=== PATIENT | female | born 1960 | race Caucasian/White ===

== ENCOUNTER → 2017-04-11 | Outpatient (CLI) | payer BC ==
[~2017-04-11] MED LIST: ACHD5005 PO; AMOX500C2 PO; AMOXICILLIN; CEPH250S PO; HYDR-757 PO; ONDA8TAB9 PO
--- NOTE | 2017-04-11 12:13 | Diagnostic Imaging Report ---
Bilateral screening mammogram The current study was also evaluated with a Computer Aided Detection (CAD) system. Indication: Screening. No current complaints stated on the questionnaire. COMPARISON: 08/24/16. FINDINGS: The breasts are composed of heterogeneously dense parenchyma which may decrease mammographic sensitivity. No mass, architectural distortion or suspicious cluster of calcification seen. Allowing for technique and positional differences, no suspicious change is seen. IMPRESSION: No significant change. ACR BI-RADS Category 2: Benign findings. Result letter will be mailed to the patient. Note: At least 10% of breast cancer is not imaged by mammography. Dictated by: Dictated on workstation # [id number]
== END ==
LOC: RAD 08:23
PROVIDERS: ATTEND Nurse Practitioner Family
DX: Z12.31 Encounter for screening mammogram for malignant neoplasm of breast (principal)
CPT/HCPCS: 77067

== ENCOUNTER → 2017-10-19 | Outpatient (CLI) | payer BC ==
--- NOTE | 2017-10-19 13:09 | Diagnostic Imaging Report ---
PROCEDURE: US Thyroid. TECHNIQUE: Multiple real-time grayscale images were obtained of the thyroid in various projections. INDICATION: Thyroid nodule. There are no previous thyroid ultrasound examinations available for comparison. FINDINGS: The CT neck exam performed on 08/20/2015 noted a large mass involving the right lobe of thyroid. The left lobe of the thyroid was also prominent and contained multiple nodules as well. Reportedly, in the interval since the prior exam, the right lobe of the thyroid has been surgically removed. The left lobe remains enlarged measuring 7.2 x 3.9 x 3.0 cm (normal gland size 4-5 x 2 x 2 cm or less). There do appear to be multiple nodules still present within the left lobe. This appearance is most likely related to multinodular goiter. If further imaging is desired, then a nuclear medicine thyroid scan would be recommended. IMPRESSION: In the interval since the previous CT exam, the right lobe of the thyroid has been surgically resected. The left lobe of the thyroid remains enlarged and contains multiple nodules. Recommendations as above. Dictated by: Dictated on workstation # [id number]
== END ==
LOC: RAD 09:07
PROVIDERS: ATTEND Otolaryngology Otolaryngology/Facial Plastic Surgery
DX: E04.2 Nontoxic multinodular goiter (principal); E89.0 Postprocedural hypothyroidism
CPT/HCPCS: 36415; 76536; 84443

== ENCOUNTER → 2018-08-26 | Outpatient (CLI) | payer BC ==
[2018-08-26 07:55] LABS: ALANINE AMINOTRANSFERASE 19 U/L (0-55); ALKALINE PHOSPHATASE 80 U/L (40-136); BILIRUBIN,TOTAL 0.9 MG/DL (0.1-1.0); BUN/CREATININE RATIO 18; CARBON DIOXIDE 29 MMOL/L (21-32); CHLORIDE 105 MMOL/L (98-107); CHOLESTEROL 228 MG/DL (< 200); CREATININE SERUM 0.73 MG/DL (0.60-1.30); GFR ESTIMATED > 60; GLUCOSE 91 MG/DL (70-105); HDL CHOLESTEROL 63 MG/DL (40-60); POTASSIUM 4.5 MMOL/L (3.6-5.0); SODIUM 140 MMOL/L (135-145); TOTAL PROTEIN 6.6 GM/DL (6.4-8.2); TRIGLYCERIDES 155 MG/DL (<150); VLDL CHOLESTEROL 31 MG/DL (5-40)
--- NOTE | 2018-08-27 07:32 | Diagnostic Imaging Report ---
INDICATION: Screening. Digital mammogram bilateral screening with 3D tomosynthesis. This study was compared to prior exams of 04/11/17, 08/14/2016, 03/28/2016 and 07/24/2012. At this time there are no current complaints. The current study was also evaluated with a Computer Aided Detection (CAD) system. FINDINGS: The fibroglandular tissue in both breasts is heterogeneously dense. This does limit the sensitivity of this exam. Overall, there does not appear to have been any significant change when compared to the prior study. No primary or secondary sign of malignancy is noted. IMPRESSION: There is no radiographic evidence for malignancy. ACR BI-RADS Category 1: Negative. Result letter will be mailed to the patient. Note: At least 10% of breast cancer is not imaged by mammography. Dictated by: Dictated on workstation # [id number]
== END ==
LOC: RAD 07:16
PROVIDERS: ATTEND Nurse Practitioner Primary Care
DX: Z12.31 Encounter for screening mammogram for malignant neoplasm of breast (principal); Z13.220 Encounter for screening for lipoid disorders; Z13.1 Encounter for screening for diabetes mellitus; N89.8 Other specified noninflammatory disorders of vagina
CPT/HCPCS: 36415; 77067; 80053; 80061

== ENCOUNTER → 2019-06-11 | Outpatient (CLI) | payer BC ==
[2019-06-11 12:24] LABS: FREE T4 (FREE THYROXINE) 0.9 NG/DL (0.70-1.48)
--- NOTE | 2019-06-11 17:20 | Diagnostic Imaging Report ---
PROCEDURE: US Thyroid. TECHNIQUE: Multiple real-time grayscale images were obtained of the thyroid in various projections. INDICATION: Goiter. Followup. COMPARISON: 06/05/2018 FINDINGS: Right thyroid lobe is surgically absent. Sonographic evaluation of the right thyroid bed demonstrates no convincing evidence of significant residual thyroid tissue. No suspicious nodules or masses are identified. The left lobe is enlarged and measures 8.0 x 3.7 x 3.1 cm. Left lobe is diffusely heterogeneous. Multiple curvilinear areas of hypoechogenicity are noted throughout the left lobe suggestive of potential tissue planes between separate thyroid nodules. Alternatively, findings could be on the basis of overall heterogeneity. Single dominant thyroid nodule measurement is not provided. Overall, the left lobe is stable in size when compared to prior exam. IMPRESSION: 1. Stable enlarged appearance of the left thyroid lobe with overall diffuse heterogeneity and possible multiple nodules. Dictated by: Dictated on workstation # [id number]
== END ==
LOC: RAD 10:34
PROVIDERS: ATTEND Otolaryngology Otolaryngology/Facial Plastic Surgery
DX: E04.9 Nontoxic goiter, unspecified (principal)
CPT/HCPCS: 36415; 76536; 84439; 84443

== ENCOUNTER → 2020-07-09 | Outpatient (CLI) | payer BC ==
--- NOTE | 2020-07-09 09:25 | Diagnostic Imaging Report ---
PROCEDURE: US Thyroid. TECHNIQUE: Multiple real-time grayscale images were obtained of the thyroid in various projections. INDICATION: Goiter, thyroid nodule. COMPARISONS: 06/11/2019 and 10/19/2017 FINDINGS: The right lobe of the thyroid gland is not visualized, is surgically absent. No abnormal soft tissue mass lesion within the right thyroid bed. The left lobe of the thyroid gland measures 7.1 x 3.7 x 3.4 cm. It is enlarged and diffusely heterogeneous. Solid iso to hyperechoic dominant nodule is present within the left thyroid lobe measuring 3.8 x 3.1 x 3.2 cm. This has not significantly changed from the prior examinations. Additional smaller nodules appear unchanged. No definite new nodule. The isthmus is not well seen. IMPRESSION: Stable dominant 3.8 cm solid nodule within the left thyroid lobe. This is not significantly changed since the prior imaging including dating back to 2018. No new thyroid nodules. The right lobe of the thyroid gland is not visualized, is surgically absent. Follow-up ultrasound in one year is recommended. Dictated by: Dictated on workstation # [id number]
== END ==
LOC: RAD 08:30
PROVIDERS: ATTEND Otolaryngology Otolaryngology/Facial Plastic Surgery
DX: E04.1 Nontoxic single thyroid nodule (principal); Z90.89 Acquired absence of other organs
CPT/HCPCS: 36415; 76536; 84436; 84443

== ENCOUNTER → 2021-07-22 | Outpatient (CLI) | payer BC ==
--- NOTE | 2021-07-22 17:46 | Diagnostic Imaging Report ---
PROCEDURE: US Thyroid. TECHNIQUE: Multiple real-time grayscale images were obtained of the thyroid in various projections. INDICATION: Thyroid nodule. FINDINGS: The previous thyroid ultrasound exam performed on 07/09/2020 noted a stable dominant 3.8 cm solid nodule in the left lobe of the thyroid. On this exam, there is again a 3.1 x 3.2 x 3.3 cm area of slightly altered echogenicity within the left lobe of the thyroid. I suspect that this does correspond to the finding on the previous exam and does not appear to have changed adversely. The inferior pole of the left lobe of the thyroid extends below the clavicle and was difficult to evaluate. There is no definite abnormality noted. The left lobe of the thyroid is enlarged measuring 8.2 x 4.2 x 3.2 cm (normal gland size 4-5 x 2 x 2 cm or less). As noted on the prior exam, the right lobe of the thyroid is surgically absent. IMPRESSION: 1. The large solid nodule within the left lobe of the thyroid seen previously is again evident and does not appear to have changed adversely. Most likely, this is a benign process given its stability since 2018. 2. The left lobe of the thyroid was difficult to visualize as the inferior pole extended below the clavicle. If further evaluation is desired, then a nuclear medicine thyroid scan should be considered. 3. The right lobe of the thyroid is surgically absent. Dictated by: Dictated on workstation # [id number]
== END ==
LOC: RAD 08:00
PROVIDERS: ATTEND Otolaryngology Otolaryngology/Facial Plastic Surgery
DX: E04.1 Nontoxic single thyroid nodule (principal); Z90.89 Acquired absence of other organs
CPT/HCPCS: 76536

== ENCOUNTER → 2022-06-16 | Outpatient (CLI) | payer BC ==
--- NOTE | 2022-06-16 09:22 | Diagnostic Imaging Report ---
PROCEDURE: US Thyroid. TECHNIQUE: Multiple real-time grayscale images were obtained of the thyroid in various projections. INDICATION: Follow-up thyroid nodule. History of right hemithyroidectomy. COMPARISON: 07/22/2021. FINDINGS: The right lobe of the thyroid is surgically absent. The left lobe measures 8.0 cm in length, 3.8 cm AP, and 3.5 cm transverse. There is prominent vascularity in the left lobe of the thyroid. The isthmus measures 0.7 cm. The prominent solid, echogenic and heterogeneous nodule within the left lobe of the thyroid measures 5.3 x 3.2 x 3.0 cm on today's exam, previously measuring 3.1 x 3.2 x 3.3 cm. IMPRESSION: 1. Interval increase in the solid nodule within the left lobe of the thyroid now measuring 5.3 cm. Given the interval increase in size and imaging characteristics, thyroid FNA is recommended to further evaluate. Dictated by: Dictated on workstation # [id number]
== END ==
LOC: RAD 07:33
PROVIDERS: ATTEND Otolaryngology Otolaryngology/Facial Plastic Surgery
DX: E04.1 Nontoxic single thyroid nodule (principal); Z90.89 Acquired absence of other organs
CPT/HCPCS: 76536

== ENCOUNTER → 2022-09-13 | Outpatient (CLI) | payer BC ==
[~2022-09-13] VITALS: Ht 172.7 cm; Wt 50.5 kg
[~2022-09-13] MED LIST changes: +LIDOCAINE 1% INJ 30 ML (XYLOCAINE) VIAL INJ ONE
--- NOTE | 2022-09-13 15:39 | Diagnostic Imaging Report ---
INDICATION: Left lobe thyroid nodule. Patient presents for ultrasound-guided fine needle aspiration and Rotex biopsy. PROCEDURE: Patient was brought to the procedure room and placed on table in the supine position. Ultrasound imaging of the neck was performed to evaluate appropriate entry site. The neck was then prepped and draped in the usual sterile fashion. A small amount 1% lidocaine was utilized for local anesthesia. A total of 4 passes were made into the dominant left lobe thyroid nodule utilizing 25-gauge needles and fine-needle aspiration technique. A single pass was made with a Rotex needle and a Rotex biopsy was performed. Hemostasis was obtained. The patient tolerated the procedure well and left Department in stable condition. IMPRESSION: Successful ultrasound-guided fine needle aspiration and Rotex biopsy of left lobe thyroid mass. Pathology results are currently pending. Dictated by: Dictated on workstation # [id number]
== END ==
LOC: RAD 13:15
PROVIDERS: ATTEND Otolaryngology Otolaryngology/Facial Plastic Surgery
DX: E04.1 Nontoxic single thyroid nodule (principal)
CPT/HCPCS: 10005

== ENCOUNTER → 2022-11-27 | Outpatient (CLI) | payer BC, OTHER ==
[~2022-11-27] MED LIST changes: -LIDOCAINE 1% INJ 30 ML (XYLOCAINE) VIAL INJ ONE
[2022-11-27 08:10] LABS: BASOPHILS # (AUTO) 0.1 10^3/uL (0.0-0.1); BASOPHILS % (AUTO) 1 % (0-10); EOSINOPHILS # (AUTO) 0.1 10^3/uL (0.0-0.3); EOSINOPHILS % (AUTO) 2 % (0-10); HEMATOCRIT 43 % (35-52); HEMOGLOBIN 14.4 g/dL (11.5-16.0); LYMPHOCYTES # (AUTO) 1.8 10^3/uL (1.0-4.0); LYMPHOCYTES % (AUTO) 29 % (12-44); MEAN CORPUSCULAR HEMOGLOBIN 29 pg (25-34); MEAN CORPUSCULAR HGB CONC 33 g/dL (32-36); MEAN CORPUSCULAR VOLUME 88 fL (80-99); MEAN PLATELET VOLUME 8.5 fL (9.0-12.2); MONOCYTES # (AUTO) 0.6 10^3/uL (0.0-1.0); MONOCYTES % (AUTO) 11 % (0-12); NEUTROPHILS # (AUTO) 3.5 10^3/uL (1.8-7.8); NEUTROPHILS % (AUTO) 58 % (42-75); PLATELET COUNT 344 10^3/uL (130-400); WHITE BLOOD COUNT 6.1 10^3/uL (4.3-11.0)
[2022-11-27 08:29] LABS: CALCIUM 8.9 MG/DL (8.5-10.1); CREATININE SERUM 0.71 MG/DL (0.60-1.30); POTASSIUM 4.1 MMOL/L (3.6-5.0)
--- NOTE | 2022-11-27 09:30 | Diagnostic Imaging Report ---
PROCEDURE: US Gallbladder. INDICATION: Right upper quadrant pain, nausea, vomiting, diarrhea TECHNIQUE: Multiple grayscale sonographic images were obtained of the right upper quadrant of the abdomen. CORRELATION STUDY: None FINDINGS: LIVER: There is uniform echotexture within the visualized portions of the liver. The main portal vein is patent and with normal direction of flow. Liver length 13.9 cm. GALLBLADDER: The gallbladder demonstrates no definitive shadowing gallstones, abnormal gallbladder wall thickening or pericholecystic fluid. COMMON BILE DUCT: Nondilated at 0.3 cm. AORTA/IVC: Not well visualized. PANCREAS: Visualized portions appearing unremarkable. RIGHT KIDNEY: 10.5 x 4.2 x 4.2 cm. No hydronephrosis. OTHER: None. IMPRESSION: 1. Negative appearing right upper quadrant abdominal ultrasound. Dictated by: Dictated on workstation # [id number]
== END ==
LOC: RAD 07:49
PROVIDERS: ATTEND Registered Nurse
DX: R10.11 Right upper quadrant pain (principal); R11.2 Nausea with vomiting, unspecified; R19.7 Diarrhea, unspecified
CPT/HCPCS: 36415; 76705; 80048; 82150; 83690; 85025

== ENCOUNTER 2022-11-30 09:34 | Inpatient (IN) | payer BC ==
[~2022-11-30] VITALS: Ht 180.3 cm; Wt 46.7 kg
--- NOTE | 2022-11-30 09:38 | ED GI ---
General Stated Complaint: VOMITING | ABD PAIN | GALL BLADDER History of Present Illness Date Seen by Provider: Nov 30, 2022 Time Seen by Provider: 09:38 Initial Comments 62-year-old female presents with crampy diffuse abdominal pain, nausea and vomiting. She reports that started couple weeks ago she had it for about 3 days, got better and then got worse again. She was seen by her primary care provider and had an ultrasound. This was done on 11/27/2022. I did review her ultrasound results and it was negative for any acute abnormality. She reports that the pain is kind of diffuse however it did start in the right upper quadrant. No reports of fever or chills. Allergies and Home Medications Allergies Coded Allergies: clindamycin (Unverified Allergy, Intermediate, 08/25/15) "CHEST PAIN AND PRESSURE" Patient Home Medication List Home Medication List Reviewed: Yes Cephalexin (Cephalexin) 250 Mg/5 Ml Susp.recon, 250 MG PO QID, (Reported) Entered as Reported by: MARIZA HAMPTON on 08/23/15 1536 Hydrocodone Bit/Acetaminophen (Lortab 5 Mg Tablet) 1 Each Tablet, 1 EACH PO Q4H PRN Prescribed by: ADAMA RUIZ on 01/07/13 1342 Review of Systems Review of Systems Constitutional: No chills, No fever EENTM: No Symptoms Reported Respiratory: No Symptoms Reported Cardiovascular: No Symptoms Reported Gastrointestinal: Abdominal Pain; Denies Constipated, Denies Diarrhea; Nausea, Vomiting Genitourinary: No Symptoms Reported Musculoskeletal: no symptoms reported Skin: no symptoms reported Psychiatric/Neurological: No Symptoms Reported Endocrine: No Symptoms Reported Past Dwnijrc-Ruqdpw-Mbbbrl Hx Seasonal Allergies Seasonal Allergies: Yes Past Medical History [employer] History: Menopausal Gastroesophageal Reflux Scoliosis Family Medical History No Pertinent Family Hx Physical Exam Vital Signs Vital Signs - First Documented 11/30/22 09:34 Temp 36.4 Pulse 92 Resp 18 B/P (MAP) 125/100 (108) Pulse Ox 99 O2 Delivery Room Air Capillary Refill : Height/Weight/BMI Height: 5'11.00" Weight: 135lbs. oz. [id number]; 16.93 BMI Method:Stated General Appearance: mild distress Neck: full range of motion, supple Respiratory: lungs clear, normal breath sounds Cardiovascular: normal peripheral pulses, regular rate, rhythm Gastrointestinal: soft, tenderness (mild diffuse ) Extremities: non-tender, normal inspection Neurologic/Psychiatric: alert, normal mood/affect, oriented x 3 Skin: normal color, warm/dry Focused Exam Lactate Level 11/30/22 11:20: Lactic Acid Level 2.69*H Lactic Acid Level Laboratory Tests Test 11/30/22 11:20 Lactic Acid Level 2.69 MMOL/L (0.50-2.00) *H Progress/Results/Core Measures Results/Orders Lab Results Laboratory Tests Test 11/30/22 09:45 11/30/22 11:17 11/30/22 11:20 Range/Units White Blood Count 23.7 H 4.3-11.0 10^3/uL Red Blood Count 5.58 H 3.80-5.11 10^6/uL Hemoglobin 16.4 H 11.5-16.0 g/dL Hematocrit 48 35-52 % Mean Corpuscular Volume 87 80-99 fL Mean Corpuscular Hemoglobin 29 25-34 pg Mean Corpuscular Hemoglobin Concent 34 32-36 g/dL Red Cell Distribution Width 12.5 10.0-14.5 % Platelet Count 444 H 130-400 10^3/uL Mean Platelet Volume 8.6 L 9.0-12.2 fL Immature Granulocyte % (Auto) 1 % Neutrophils (%) (Auto) 84 H 42-75 % Lymphocytes (%) (Auto) 10 L 12-44 % Monocytes (%) (Auto) 4 0-12 % Eosinophils (%) (Auto) 0 0-10 % Basophils (%) (Auto) 1 0-10 % Neutrophils # (Auto) 19.9 H 1.8-7.8 10^3/uL Lymphocytes # (Auto) 2.3 1.0-4.0 10^3/uL Monocytes # (Auto) 1.0 0.0-1.0 10^3/uL Eosinophils # (Auto) 0.1 0.0-0.3 10^3/uL Basophils # (Auto) 0.1 0.0-0.1 10^3/uL Immature Granulocyte # (Auto) 0.2 H 0.0-0.1 10^3/uL Neutrophils % (Manual) 82 % Lymphocytes % (Manual) 11 % Monocytes % (Manual) 7 % Platelet Estimate INCREASED Blood Morphology Comment NORMAL Sodium Level 138 135-145 MMOL/L Potassium Level 4.1 3.6-5.0 MMOL/L Chloride Level 99 98-107 MMOL/L Carbon Dioxide Level 24 21-32 MMOL/L Anion Gap 15 H 5-14 MMOL/L Blood Urea Nitrogen 14 7-18 MG/DL Creatinine 0.85 0.60-1.30 MG/DL Estimat Glomerular Filtration Rate 78 BUN/Creatinine Ratio 16 Glucose Level 174 H 70-105 MG/DL Calcium Level 9.4 8.5-10.1 MG/DL Corrected Calcium 9.7 8.5-10.1 MG/DL Total Bilirubin 1.0 0.1-1.0 MG/DL Aspartate Amino Transf (AST/SGOT) 17 5-34 U/L Alanine Aminotransferase (ALT/SGPT) 9 0-55 U/L Alkaline Phosphatase 89 40-136 U/L C-Reactive Protein High Sensitivity 1.08 H 0.00-0.50 MG/DL Total Protein 7.3 6.4-8.2 GM/DL Albumin 3.6 3.2-4.5 GM/DL Lipase 12 8-78 U/L Urine Color YELLOW Urine Clarity CLEAR Urine pH 6.0 5-9 Urine Specific [place] 1.015 L 1.016-1.022 Urine Protein NEGATIVE NEGATIVE Urine Glucose (UA) NEGATIVE NEGATIVE Urine Ketones NEGATIVE NEGATIVE Urine Nitrite NEGATIVE NEGATIVE Urine Bilirubin NEGATIVE NEGATIVE Urine Urobilinogen 0.2 < = 1.0 MG/DL Urine Leukocyte Esterase NEGATIVE NEGATIVE Urine RBC (Auto) 1+ H NEGATIVE Urine RBC 5-10 H /HPF Urine WBC NONE /HPF Urine Squamous Epithelial Cells 0-2 /HPF Urine Crystals N /LPF Urine Bacteria NEGATIVE /HPF Urine Casts PRESENT /LPF Urine Hyaline Casts 5-10 H /LPF Urine Mucus SMALL H /LPF Urine Culture Indicated NO Lactic Acid Level 2.69 *H 0.50-2.00 MMOL/L My Orders Orders - HOPKINS,LITZY L DO Cbc With Automated Diff (11/30/22 09:41) Comprehensive Metabolic Panel (11/30/22 09:41) Hs C Reactive Protein (11/30/22 09:41) Lipase (11/30/22 09:41) Ua Culture If Indicated (11/30/22 09:41) Ondansetron Injection (Zofran Injectio (11/30/22 09:45) Ns Iv 1000 Ml (Sodium Chloride 0.9%) (11/30/22 09:41) Famotidine Injection (Pepcid Injection) (11/30/22 09:41) Hyoscyamine Sl Tablet (Levsin Sl Tablet) (11/30/22 09:45) Manual Differential (11/30/22 09:45) Ct Abdomen/Pelvis W (11/30/22 10:25) Iohexol Injection (Omnipaque 350 Mg/Ml 1 (11/30/22 10:30) Ns (Ivpb) (Sodium Chloride 0.9% Ivpb Bag (11/30/22 10:30) Lactic Acid Analyzer (11/30/22 11:16) Piperacillin Sodium/Tazobactam (Zosyn Vi (11/30/22 11:30) Ed Iv/Invasive Line Start (11/30/22 11:20) Ns Iv 1000 Ml (Sodium Chloride 0.9%) (11/30/22 11:30) Ng Tube Insert & Assessment (11/30/22 12:08) Ng Tube To Low Wall Suction (11/30/22 12:08) Methylprednisolone Sod Succ (Solu-Medrol (11/30/22 12:08) Ed Admission (Communication) (11/30/22 12:15) Medications Given in ED Current Medications Medications Dose Ordered Sig/Андрей Route Start Time Stop Time Status Last Admin Dose Admin Hyoscyamine Sulfate 0.125 mg ONCE ONCE SL 11/30/22 09:45 11/30/22 09:46 DC 11/30/22 09:51 0.125 MG Iohexol 100 ml ONCE ONCE IV 11/30/22 10:30 11/30/22 10:31 DC 11/30/22 10:53 54 ML Ondansetron HCl 4 mg ONCE ONCE IVP 11/30/22 09:45 11/30/22 09:46 DC 11/30/22 09:52 4 MG Piperacillin Sod/ Tazobactam Sod 4.5 gm/Sodium Chloride 100 ml @ 200 mls/hr ONCE ONCE IV 11/30/22 11:30 11/30/22 11:59 DC 11/30/22 11:33 200 MLS/HR Sodium Chloride 100 ml ONCE ONCE IV 11/30/22 10:30 11/30/22 10:31 DC 11/30/22 10:53 80 ML Vital Signs/I&O 11/30/22 09:34 Temp 36.4 Pulse 92 Resp 18 B/P (MAP) 125/100 (108) Pulse Ox 99 O2 Delivery Room Air Progress Progress Note : Progress Note Patient's labs were reviewed and compared to prior labs done by his primary care provider on outpatient basis. She did have a significant increase in her white count. He also had elevated creatinine. Patient's ultrasound performed by her primary care provider was reviewed showed no significant findings. Based on patient's elevated white count CRP is CT was obtained. CT showed concerns for a Crohn's type flare with possible obstruction and possible ischemia.. I reviewed CT and discussed with Dr. Antony. At this time we will admit patient keep her n.p.o., we will repeat her lactic which was initially elevated to trend. She was given Zosyn antibiotics empirically in the ER. Also discussed patient with Dr. rBumfield who will consult. Patient was stable and transferred to the floor I did have a discussion with patient regarding possible need for surgery. We did attempt to place an NG tube. Once NG tube placed patient reports that she just cannot tolerate it made her feel like she cannot breathe. She took it out and declined further NG tube placement.. Diagnostic Imaging Diagonstic Imaging: CT Plain Films/CT/US/NM/MRI: abdomen Comments Date of Exam:11/30/22 CT ABDOMEN/PELVIS W EXAMINATION: CT abdomen and pelvis with intravenous contrast. TECHNIQUE: Multiple contiguous axial images were obtained through the abdomen and pelvis after the uneventful administration of intravenous contrast. All CT scans use one or more of the following dose optimizing techniques: automated exposure control, MA and/or KvP adjustment based on patient size and exam type or iterative reconstruction. HISTORY: Abdominal pain. COMPARISON: None available. FINDINGS: Limited views of the lower thorax are unremarkable. The liver is normal without focal lesion. There is no biliary ductal dilation. Gallbladder is normal. Pancreas is normal. Spleen is normal. Adrenal glands are normal. The kidneys are normal. There is no hydronephrosis. Urinary bladder is normal. There is a long segment of wall thickening of the terminal ileum with marked luminal narrowing. There is severe upstream dilation of the small bowel. No abscess or perforation. There are enlarged adjacent lymph nodes next to the inflamed terminal ileum measuring up to 1.1 cm. Small amount of free fluid is present. There is extensive mesenteric edema and a small amount of fluid in the mesentery. No free air. No abdominal or pelvic lymphadenopathy. Aorta is normal in caliber without aneurysm. There are no suspicious osseous lesions. IMPRESSION: 1. Long segment severe active inflammation of the terminal ileum concerning for an inflammatory bowel disease. 2. Severe luminal narrowing of the inflamed bowel with marked dilation of the upstream bowel in keeping with high-grade obstruction related to inflammation. There is no abscess or perforation but there is extensive mesenteric edema concerning for developing ischemia of the dilated bowel. Reviewed: Reviewed by Me, Reviewed/Discussed Departure Impression Primary Impression: Acute Crohn's disease Qualified Codes: K50.919 - Crohn's disease, unspecified, with unspecified complications Disposition: ADMITTED INPATIENT Condition: Stable Admissions Decision to Admit Reason: Admit from ER (General) Decision to Admit/Date: Nov 30, 2022 Time/Decision to Admit Time: 12:15 Departure-Patient Inst. Referrals: ZAC SUTHERLAND (PCP) Primary Care Physician [facility] (Family) Primary Care Physician LITZY HOPKINS DO Nov 30, 2022 09:38
[2022-11-30] MEDS ORDERED: FAMOTIDINE 20MG/2ML IV (PEPCID) IV STA (09:41)
[2022-11-30] MEDS ORDERED: NS IV 1000 ML 1,000 ML IV STA (09:41)
[2022-11-30] MEDS ORDERED: ONDANSETRON 4 MG/2 ML (SDV) Z0FRAN IVP ONE (09:45)
[2022-11-30] MEDS ORDERED: HYOSCYAMINE 0.125 MG (LEVSIN) TAB SL ONE (09:45)
[2022-11-30 09:52] LABS: BASOPHILS # (AUTO) 0.1 10^3/uL (0.0-0.1); BASOPHILS % (AUTO) 1 % (0-10); EOSINOPHILS # (AUTO) 0.1 10^3/uL (0.0-0.3); EOSINOPHILS % (AUTO) 0 % (0-10); HEMATOCRIT 48 % (35-52); HEMOGLOBIN 16.4 g/dL (11.5-16.0); LYMPHOCYTES # (AUTO) 2.3 10^3/uL (1.0-4.0); LYMPHOCYTES % (AUTO) 10 % (12-44); MEAN CORPUSCULAR HEMOGLOBIN 29 pg (25-34); MEAN CORPUSCULAR HGB CONC 34 g/dL (32-36); MEAN CORPUSCULAR VOLUME 87 fL (80-99); MEAN PLATELET VOLUME 8.6 fL (9.0-12.2); MONOCYTES % (AUTO) 4 % (0-12); NEUTROPHILS # (AUTO) 19.9 10^3/uL (1.8-7.8); NEUTROPHILS % (AUTO) 84 % (42-75); PLATELET COUNT 444 10^3/uL (130-400); WHITE BLOOD COUNT 23.7 10^3/uL (4.3-11.0)
[2022-11-30 10:02] LABS: ALBUMIN 3.6 GM/DL (3.2-4.5)
[2022-11-30 10:03] LABS: POTASSIUM 4.1 MMOL/L (3.6-5.0)
[2022-11-30 10:04] LABS: CALCIUM 9.4 MG/DL (8.5-10.1)
[2022-11-30 10:05] LABS: TOTAL PROTEIN 7.3 GM/DL (6.4-8.2)
[2022-11-30 10:09] LABS: CREATININE SERUM 0.85 MG/DL (0.60-1.30)
[2022-11-30 10:17] LABS: LYMPHOCYTES % (MANUAL) 11 %; MONOCYTES % (MANUAL) 7 %; NEUTROPHILS % (MANUAL) 82 %; PLATELET ESTIMATE INCREASED; RBC MORPH NORMAL
[2022-11-30] MEDS ORDERED: IOHEXOL 350 MG/ML 100 ML (OMNIPAQUE 350) VIAL IV ONE (10:30)
[2022-11-30] MEDS ORDERED: NS 100 ML (IVPB) BAG IV ONE (10:30)
--- NOTE | 2022-11-30 11:11 | Diagnostic Imaging Report ---
EXAMINATION: CT abdomen and pelvis with intravenous contrast. TECHNIQUE: Multiple contiguous axial images were obtained through the abdomen and pelvis after the uneventful administration of intravenous contrast. All CT scans use one or more of the following dose optimizing techniques: automated exposure control, MA and/or KvP adjustment based on patient size and exam type or iterative reconstruction. HISTORY: Abdominal pain. COMPARISON: None available. FINDINGS: Limited views of the lower thorax are unremarkable. The liver is normal without focal lesion. There is no biliary ductal dilation. Gallbladder is normal. Pancreas is normal. Spleen is normal. Adrenal glands are normal. The kidneys are normal. There is no hydronephrosis. Urinary bladder is normal. There is a long segment of wall thickening of the terminal ileum with marked luminal narrowing. There is severe upstream dilation of the small bowel. No abscess or perforation. There are enlarged adjacent lymph nodes next to the inflamed terminal ileum measuring up to 1.1 cm. Small amount of free fluid is present. There is extensive mesenteric edema and a small amount of fluid in the mesentery. No free air. No abdominal or pelvic lymphadenopathy. Aorta is normal in caliber without aneurysm. There are no suspicious osseous lesions. IMPRESSION: 1. Long segment severe active inflammation of the terminal ileum concerning for an inflammatory bowel disease. 2. Severe luminal narrowing of the inflamed bowel with marked dilation of the upstream bowel in keeping with high-grade obstruction related to inflammation. There is no abscess or perforation but there is extensive mesenteric edema concerning for developing ischemia of the dilated bowel. Dictated by: Dictated on workstation # [id number]
[2022-11-30 11:27] LABS: BILIRUBIN,URINE NEGATIVE (NEGATIVE); CLARITY,URINE CLEAR; COLOR,URINE YELLOW; GLUCOSE, URINE (UA) NEGATIVE (NEGATIVE); KETONES,URINE NEGATIVE (NEGATIVE); LEUKOCYTE ESTERASE ,URINE NEGATIVE (NEGATIVE); NITRITE,URINE NEGATIVE (NEGATIVE); PROTEIN,URINE NEGATIVE (NEGATIVE)
[2022-11-30] MEDS ORDERED: PIPERACILLIN SODIUM/TAZOBACTAM 4.5 GM in NS (IVPB) 100 ML IV ONE (11:30)
[2022-11-30] MEDS: NS IV 1000 ML 1,000 ML IV SCH ×4 (11:33→22:30)
[2022-11-30 12:00] LABS: BACTERIA,URINE NEGATIVE /HPF; SQUAMOUS EPITHELIAL CELL,UR 0-2 /HPF
[2022-11-30] MEDS ORDERED: methylPREDNISolone 125 MG (Solu-MEDROL) VIAL IV STA (12:08)
--- NOTE | 2022-11-30 12:21 | Consultation - Hospitalist ---
HPI History of Present Illness: HPI/Chief Complaint Pt is a 62yoCF who presented to the ER due to abdominal pain. She states it started about a week and a half ago during the Super Bowel and she's been dealing with it ever since. She was seen by her PCP who got an outpatient usg to check her gallbladder. She was told everything was normal on that but her pain continued to worsen. She has has intermittent nausea and vomiting as well along with diarrhea. She did have a BM this AM but now thinks she is constipated because she has not passed any gas. She denies any history of inflammatory bowel or even irritable bowel. She was found to have a leukocytosis on labs and her lactic acid was elevated so CT abdomen was done which revealed severe inflammati on of the terminal ileum and svere luminal narrowing of the inflamed bowel with concern for high grade obstruction. I am consulted for medical management. Source: patient Date Seen 11/30/22 Attending Physician Rajani Wright PCP Admitting Physician: Attending Physician: Referring Physician Date of Admission Home Medications & Allergies Home Medications Reviewed patient Home Medication Reconciliation performed by pharmacy medication reconciliations hazardous material technician and/or nursing. Patients Allergies have been reviewed. Allergies Allergies Coded Allergies clindamycin (Unverified Allergy, Intermediate, 11/30/22) "CHEST PAIN AND PRESSURE" Past Jgtewqg-Gqrwom-Qxdzkt Hx Patient Social History Tobacco Use?: No Use of E-Cig and/or Vaping dev: Yes E-Cig or Vaping type used: Nicotine Substance use?: No Alcohol Use?: No Pt feels they are or have been: No Seasonal Allergies Seasonal Allergies: Yes Current Status status: No Advance Directives: No Communicates: Verbally Primary Language: Mexican Preferred Spoken Language: Mexican Is interpretation needed?: No Past Medical History [employer] History: Menopausal Gastroesophageal Reflux Scoliosis Family Medical History No Pertinent Family Hx Review of Systems Constitutional: see HPI Physical Exam Physical Exam Vital Signs Vital Signs - First Documented 11/30/22 09:34 Temp 36.4 Pulse 92 Resp 18 B/P (MAP) 125/100 (108) Pulse Ox 99 O2 Delivery Room Air Capillary Refill : Less Than 3 Seconds Height, Weight, BMI Height: 5'11.00" Weight: 135lbs. oz. 61.011549vm; 14.00 BMI Method:Stated General Appearance: No Apparent Distress Respiratory: Lungs Clear, No Accessory Muscle Use, No Respiratory Distress Cardiovascular: Regular Rate, Rhythm, No Murmur Gastrointestinal: Abnormal Bowel Sounds (quiet but present), Tenderness (mild and diffuse) Extremity: No Calf Tenderness, No Pedal Edema Neurologic/Psychiatric: Alert, Oriented x3 Results Results/Procedures Labs Laboratory Tests 11/30/22 09:45 12/01/22 05:25 Patient resulted labs reviewed. Imaging: Reviewed Imaging Films, Reviewed Imaging Report Imaging [facility] [place], [place] NAME: DWAYNE NIETO [facility] REC#: [id number] PT STATUS: REG ER : 1960 PHYSICIAN: LITZY HOPKINS DO ADMIT DATE: 11/30/22/ER Draft Date of Exam:11/30/22 CT ABDOMEN/PELVIS W EXAMINATION: CT abdomen and pelvis with intravenous contrast. TECHNIQUE: Multiple contiguous axial images were obtained through the abdomen and pelvis after the uneventful administration of intravenous contrast. All CT scans use one or more of the following dose optimizing techniques: automated exposure control, MA and/or KvP adjustment based on patient size and exam type or iterative reconstruction. HISTORY: Abdominal pain. COMPARISON: None available. FINDINGS: Limited views of the lower thorax are unremarkable. The liver is normal without focal lesion. There is no biliary ductal dilation. Gallbladder is normal. Pancreas is normal. Spleen is normal. Adrenal glands are normal. The kidneys are normal. There is no hydronephrosis. Urinary bladder is normal. There is a long segment of wall thickening of the terminal ileum with marked luminal narrowing. There is severe upstream dilation of the small bowel. No abscess or perforation. There are enlarged adjacent lymph nodes next to the inflamed terminal ileum measuring up to 1.1 cm. Small amount of free fluid is present. There is extensive mesenteric edema and a small amount of fluid in the mesentery. No free air. No abdominal or pelvic lymphadenopathy. Aorta is normal in caliber without aneurysm. There are no suspicious osseous lesions. IMPRESSION: 1. Long segment severe active inflammation of the terminal ileum concerning for an inflammatory bowel disease. 2. Severe luminal narrowing of the inflamed bowel with marked dilation of the upstream bowel in keeping with high-grade obstruction related to inflammation. There is no abscess or perforation but there is extensive mesenteric edema concerning for developing ischemia of the dilated bowel. Dictated on workstation # [id number] Dict: 11/30/22 1105 Trans: 11/30/22 1111 [id number] Interpreted by: AARON SOTELO MD Electronically signed by: Assessment/Plan Assessment and Plan Assess & Plan/Chief Complaint Likely Crohn's Flare CT with significant inflammatory findings and concerning for high grade bowel obstruction Spoke with Dr Antony- conservative management at this time NGT was placed but she removed and is declining placing it again Pain regimen NPO trend lactic acid Agree with steroids Diagnosis/Problems Diagnosis/Problems (1) Acute Crohn's disease Status: Acute Qualifiers: Digestive disease complication type: with intestinal obstruction Qualified Codes: K50.912 - Crohn's disease, unspecified, with intestinal obstruction Copy Copies To 1: HYUN Lake MD Nov 30, 2022 12:21
[2022-11-30] MEDS ORDERED: NS IV 1000 ML 1,000 ML ONE (12:33)
[2022-11-30] MEDS ORDERED: morphine INJ 4 MG/ML 1 ML (VIAL/SYRINGE) IV PRN (13:45)
[2022-11-30] MEDS ORDERED: ONDANSETRON 4 MG/2 ML (SDV) Z0FRAN IVP PRN (13:45)
[2022-11-30 15:59] VITALS: BP 105/53
--- NOTE | 2022-11-30 16:37 | History & Physical-Surgical ---
ISABELA BOWEN 11/30/22 1637: History of Present Illness History of Present Illness Reason for visit/HPI Kait Mackey is a 62yo female whom presented to the ED due to abdominal pain with associated nausea and vomiting. Pt was accompanied by , daughter, and sister. Pt states her abdominal pain started around the time of the Super Bowel. Per medicine pt was seen by her PCP and received an US to check her gallbladder, but imaging was normal. Pt continued to have worsening abdominal pain w/ associated nausea, and then this morning she had a vomiting episode. Pt's last bowel movement was this morning, but pt states that she hasn't been passing gas since her bowel movement. Pt notes lack of appetite. Pt denies any history of inflammatory bowel disease, though pt states her mother of Gastric Cancer in her 40s. Date of Admission Nov 30, 2022 at 13:11 Time Seen by a Provider: 16:28 I consulted on this patient on 11/30/22 16:27 Attending Physician Rajani Wright Admitting Physician Admitting Physician: Ulysses Orantes DO Attending Physician: Ulysses Orantes DO Consult Allergies and Home Medications Allergies Coded Allergies: clindamycin (Unverified Allergy, Intermediate, 11/30/22) "CHEST PAIN AND PRESSURE" Patient Home Medication List Cephalexin (Cephalexin) 250 Mg/5 Ml Susp.recon, 250 MG PO QID, (Reported) Entered as Reported by: MARIZA HAMPTON on 08/23/15 1536 Hydrocodone Bit/Acetaminophen (Lortab 5 Mg Tablet) 1 Each Tablet, 1 EACH PO Q4H PRN Prescribed by: ADAMA RUIZ on 01/07/13 1342 Past Cgattas-Fpmnxd-Azajxo Hx Patient Social History Tobacco Use?: No Smoking Status: Never a Smoker Use of E-Cig and/or Vaping dev: Yes E-Cig or Vaping type used: Nicotine Use of E-Cig and/or Vaping Isaac: Light User Substance use?: No Alcohol Use?: Yes Alcohol type: Wine Alcohol Frequency: Rarely Pt feels they are or have been: No Seasonal Allergies Seasonal Allergies: Yes Current Status status: No status: No Advance Directives: No Communicates: Verbally Primary Language: Emirati Preferred Spoken Language: Emirati Is interpretation needed?: No Implanted or Applied Medical D: None 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 oz. 61.208646fa; 14.36 BMI Method:Stated General Appearance: No Apparent Distress HEENT: PERRL/EOMI Neck: Non Tender, Supple Respiratory: Chest Non Tender, No Accessory Muscle Use, No Respiratory Distress Cardiovascular: No Edema, No JVD, Normal Peripheral Pulses Gastrointestinal: Non Tender (Pt recieved pain medication), Soft; No Guarding Extremity: Non Tender, No Calf Tenderness, No Pedal Edema Neurologic/Psychiatric: Alert, Oriented x3, Normal Mood/Affect Skin: Normal Color, Warm/Dry Lymphatic: No Adenopathy Data Review Labs Laboratory Tests 11/30/22 09:45: White Blood Count 23.7H, Red Blood Count 5.58H, Hemoglobin 16.4H, Hematocrit 48, Mean Corpuscular Volume 87, Mean Corpuscular Hemoglobin 29, Mean Corpuscular Hemoglobin Concent 34, Red Cell Distribution Width 12.5, Platelet Count 444H, Mean Platelet Volume 8.6L, Immature Granulocyte % (Auto) 1, Neutrophils (%) (Auto) 84H, Lymphocytes (%) (Auto) 10L, Monocytes (%) (Auto) 4, Eosinophils (%) (Auto) 0, Basophils (%) (Auto) 1, Neutrophils # (Auto) 19.9H, Lymphocytes # (Auto) 2.3, Monocytes # (Auto) 1.0, Eosinophils # (Auto) 0.1, Basophils # (Auto) 0.1, Immature Granulocyte # (Auto) 0.2H, Neutrophils % (Manual) 82, Lymphocytes % (Manual) 11, Monocytes % (Manual) 7, Platelet Estimate INCREASED, Blood Morphology Comment NORMAL, Sodium Level 138, Potassium Level 4.1, Chloride Level 99, Carbon Dioxide Level 24, Anion Gap 15H, Blood Urea Nitrogen 14, Creatinine 0.85, Estimat Glomerular Filtration Rate 78, BUN/Creatinine Ratio 16, Glucose Level 174H, Calcium Level 9.4, Corrected Calcium 9.7, Total Bilirubin 1.0, Aspartate Amino Transf (AST/SGOT) 17, Alanine Aminotransferase (ALT/SGPT) 9, Alkaline Phosphatase 89, C-Reactive Protein High Sensitivity 1.08H, Total Protein 7.3, Albumin 3.6, Lipase 12 11/30/22 11:17: Urine Color YELLOW, Urine Clarity CLEAR, Urine pH 6.0, Urine Specific [place] 1.015L, Urine Protein NEGATIVE, Urine Glucose (UA) NEGATIVE, Urine Ketones NEGATIVE, Urine Nitrite NEGATIVE, Urine Bilirubin NEGATIVE, Urine Urobilinogen 0.2, Urine Leukocyte Esterase NEGATIVE, Urine RBC (Auto) 1+H, Urine RBC 5-10H, Urine WBC NONE, Urine Squamous Epithelial Cells 0-2, Urine Crystals N, Urine Bacteria NEGATIVE, Urine Casts PRESENT, Urine Hyaline Casts 5-10H, Urine Mucus SMALLH, Urine Culture Indicated NO 11/30/22 11:20: Lactic Acid Level 2.69*H 11/30/22 13:30: Lactic Acid Level 0.98 11/30/22 15:33: Lactic Acid Level 0.67 Radiology Date of Exam:11/30/22 CT ABDOMEN/PELVIS W EXAMINATION: CT abdomen and pelvis with intravenous contrast. TECHNIQUE: Multiple contiguous axial images were obtained through the abdomen and pelvis after the uneventful administration of intravenous contrast. All CT scans use one or more of the following dose optimizing techniques: automated exposure control, MA and/or KvP adjustment based on patient size and exam type or iterative reconstruction. HISTORY: Abdominal pain. COMPARISON: None available. FINDINGS: Limited views of the lower thorax are unremarkable. The liver is normal without focal lesion. There is no biliary ductal dilation. Gallbladder is normal. Pancreas is normal. Spleen is normal. Adrenal glands are normal. The kidneys are normal. There is no hydronephrosis. Urinary bladder is normal. There is a long segment of wall thickening of the terminal ileum with marked luminal narrowing. There is severe upstream dilation of the small bowel. No abscess or perforation. There are enlarged adjacent lymph nodes next to the inflamed terminal ileum measuring up to 1.1 cm. Small amount of free fluid is present. There is extensive mesenteric edema and a small amount of fluid in the mesentery. No free air. No abdominal or pelvic lymphadenopathy. Aorta is normal in caliber without aneurysm. There are no suspicious osseous lesions. IMPRESSION: 1. Long segment severe active inflammation of the terminal ileum concerning for an inflammatory bowel disease. 2. Severe luminal narrowing of the inflamed bowel with marked dilation of the upstream bowel in keeping with high-grade obstruction related to inflammation. There is no abscess or perforation but there is extensive mesenteric edema concerning for developing ischemia of the dilated bowel. Assessment/Plan Assessment/Plan Admission Diagonsis Diffuse Abdominal Pain Leukocytosis Lactic Acidosis Acute Polycythemia CT with significant inflammatory findings and concerning for high grade bowel obstruction NGT was placed but she removed and is declining placing it again Pain regimen NPO IV Abx Steroids ULYSSES ORANTES DO 11/30/22 1706: History of Present Illness History of Present Illness Reason for visit/HPI 62 year old female who has been having issues with her abdomen sine September. She would have episodes of generalized pain that would last a short while and then go away. She has had several episodes and was waiting for a ct scan to be scheduled, when she began having severe worsening pain generalized. Constant and began having nausea and emesis. She has been more bloated as well. She had a bm this morning but not passing any gas now. She had ct scan that demonstrated: 1. Long segment severe active inflammation of the terminal ileum concerning for an inflammatory bowel disease. 2. Severe luminal narrowing of the inflamed bowel with marked dilation of the upstream bowel in keeping with high-grade obstruction related to inflammation. There is no abscess or perforation but there is extensive mesenteric edema concerning for developing ischemia of the dilated bowel.monstrated: Allergies and Home Medications Allergies Coded Allergies: clindamycin (Unverified Allergy, Intermediate, 11/30/22) "CHEST PAIN AND PRESSURE" Patient Home Medication List Home Medication List Reviewed: Yes Cephalexin (Cephalexin) 250 Mg/5 Ml Susp.recon, 250 MG PO QID, (Reported) Entered as Reported by: MARIZA HAMPTON on 08/23/15 1536 Hydrocodone Bit/Acetaminophen (Lortab 5 Mg Tablet) 1 Each Tablet, 1 EACH PO Q4H PRN Prescribed by: ADAMA RUIZ on 01/07/13 1342 Past Kkqhizy-Ypmamv-Gkuyxr Hx Family Medical History Reviewed Nursing Family Hx No Pertinent Family Hx Review of Systems Constitutional: No chills, No fever EENTM: No blurred vision, No double vision Respiratory: No cough, No dyspnea on exertion, No short of breath Gastrointestinal: abdominal pain, loss of appetite, nausea, vomiting Genitourinary: No decreased output, No discharge Musculoskeletal: No back pain, No joint pain Skin: No change in color, No change in hair/nails Psychiatric/Neurological: Denies Anxiety, Denies Depressed, Denies Emotional Problems All Other Systems Reviewed Negative Unless Noted: Yes Physical Exam General Appearance: No Apparent Distress, Thin HEENT: PERRL/EOMI, Normal ENT Inspection Neck: Non Tender, Supple Respiratory: Chest Non Tender, No Accessory Muscle Use, No Respiratory Distress Cardiovascular: No Edema, No JVD Gastrointestinal: No Non Tender (Pt recieved pain medication); Soft, Distended (minimal); No Guarding; Tenderness (minimal diffuse tenderness) Rectal: Deferred Back: No CVA Tenderness, No Vertebral Tenderness Extremity: Non Tender, No Calf Tenderness Neurologic/Psychiatric: Alert, Oriented x3, Normal Mood/Affect Skin: Normal Color, Warm/Dry Lymphatic: No Adenopathy Assessment/Plan Assessment/Plan Admission Diagonsis Diffuse Abdominal Pain acute inflammatory bowel disease flare Leukocytosis Lactic Acidosis Nausea/Vomiting CT with significant inflammatory findings and concerning for high grade bowel obstruction most likely from inflammatory bowel disease (chrohn's) NGT was placed but she removed and is declining placing it again Pain regimen NPO IV Abx Steroids Based on exam I do not feel that she has ischemic bowel but will need to continue to follow to make sure doesn't develop due to edema of mesentery. Admission Status: Inpatient Order (span 2 midnights) Reason for Inpatient Admission: Patient will need IV antibiotics, steroids and serial exams making sure continued improvement greater than 2 midnights. Assessment/Plan Diffuse Abdominal Pain acute inflammatory bowel disease flare Leukocytosis Lactic Acidosis Nausea/Vomiting CT with significant inflammatory findings and concerning for high grade bowel obstruction most likely from inflammatory bowel disease (chrohn's) NGT was placed but she removed and is declining placing it again Pain regimen NPO IV Abx Steroids Based on exam I do not feel that she has ischemic bowel but will need to continue to follow to make sure doesn't develop due to edema of mesentery. Supervisory-Addendum Brief Verification & Attestation Participated in pt care: history, MDM, physical Personally performed: exam, history, MDM, supervision of care Care discussed with: Medical Student Procedures: n/a Results interpretation: Verified all documentation Verification and Attestation of Medical Student E/M Service A medical student performed and documented this service in my presence. I reviewed and verified all information documented by the medical student and made modifications to such information, when appropriate. I personally performed the physical exam and medical decision making. Ulysses Orantes, Nov 30, 2022,17:16 ISABELA BOWEN Nov 30, 2022 16:37 ULYSSES ORANTES DO Nov 30, 2022 17:06
[2022-11-30] MEDS: PIPERACILLIN SODIUM/TAZOBACTAM 4.5 GM in NS (IVPB) 100 ML IV SCH (18:01)
[2022-11-30 20:09] VITALS: BP 98/52
[2022-11-30 23:20] VITALS: BP 99/51
[2022-12-01] MEDS: PIPERACILLIN SODIUM/TAZOBACTAM 4.5 GM in NS (IVPB) 100 ML IV SCH ×3 (03:46→18:42)
[2022-12-01 03:47] VITALS: BP 107/60
[2022-12-01 05:36] LABS: BASOPHILS % (AUTO) 0 % (0-10); EOSINOPHILS % (AUTO) 0 % (0-10); HEMATOCRIT 34 % (35-52); HEMOGLOBIN 10.9 g/dL (11.5-16.0); LYMPHOCYTES # (AUTO) 1.4 10^3/uL (1.0-4.0); LYMPHOCYTES % (AUTO) 14 % (12-44); MEAN CORPUSCULAR HEMOGLOBIN 29 pg (25-34); MEAN CORPUSCULAR HGB CONC 32 g/dL (32-36); MEAN CORPUSCULAR VOLUME 91 fL (80-99); MEAN PLATELET VOLUME 8.7 fL (9.0-12.2); MONOCYTES # (AUTO) 0.4 10^3/uL (0.0-1.0); MONOCYTES % (AUTO) 4 % (0-12); NEUTROPHILS # (AUTO) 8.1 10^3/uL (1.8-7.8); NEUTROPHILS % (AUTO) 81 % (42-75); PLATELET COUNT 271 10^3/uL (130-400)
[2022-12-01 05:55] LABS: POTASSIUM 4.4 MMOL/L (3.6-5.0)
[2022-12-01 05:56] LABS: CALCIUM 7.4 MG/DL (8.5-10.1)
[2022-12-01 06:00] LABS: CREATININE SERUM 0.65 MG/DL (0.60-1.30)
[2022-12-01 07:40] VITALS: BP 87/54
[2022-12-01] MEDS: NS IV 1000 ML 1,000 ML IV SCH ×2 (08:15→20:03)
[2022-12-01] MEDS: methylPREDNISolone 125 MG (Solu-MEDROL) VIAL IVP SCH (08:15)
--- NOTE | 2022-12-01 08:33 | Progress Note - Surgery ---
ISABELA BOWEN 12/01/22 0833: Subjective Date Seen by a Provider: Dec 01, 2022 Time Seen by a Provider: 08:28 Subjective/Events-last exam Pt is was siting in bet comfortable during the interview. Pt states that she feels a lot better than yesterday. Pt denies nausea and vomiting, that was associated with her condition yesterday. Pt had a 3 loose bowel movements today. Pt states she has slight abdominal pain but has improved. Pt doesn't have any other complaints. Review of Systems General: No Chills, No Fatigue HEENT: No Head Aches, No Visual Changes Pulmonary: No Dyspnea, No Cough Cardiovascular: No: Chest Pain, Palpitations Gastrointestinal: Abdominal Pain (minimal); No: Nausea, Vomiting Genitourinary: No Dysuria, No Frequency Musculoskeletal: No: neck pain, back pain Neurological: No: Weakness, Numbness Focused Exam Lactate Level 11/30/22 13:30: Lactic Acid Level 0.98 11/30/22 15:33: Lactic Acid Level 0.67 11/30/22 17:30: Lactic Acid Level 0.65 Objective Exam Vital Signs Date Time Temp Pulse Resp B/P (MAP) Pulse Ox O2 Delivery O2 Flow Rate FiO2 12/01/22 07:40 36.9 52 18 87/54 (65) 99 Room Air 12/01/22 03:47 36.6 58 20 107/60 (76) 98 Room Air 11/30/22 23:20 37.0 63 18 99/51 (67) 95 Room Air 11/30/22 20:10 Room Air 11/30/22 20:09 36.2 59 16 98/52 (67) 96 Room Air 11/30/22 15:59 36.4 69 16 105/53 (70) 96 Room Air 11/30/22 14:46 96 Room Air 11/30/22 13:13 75 16 127/84 96 Room Air 11/30/22 09:34 36.4 92 18 125/100 (108) 99 Room Air I & O 12/01/22 07:00 Intake Total 3200 ml Output Total 300 ml Balance 2900 ml Capillary Refill : Less Than 3 Seconds General Appearance: No Apparent Distress, Thin HEENT: PERRL/EOMI, Normal ENT Inspection Neck: Non Tender, Supple Respiratory: Chest Non Tender, No Accessory Muscle Use, No Respiratory Distress Cardiovascular: No Edema, No JVD Peripheral Pulses: 2+ Radial Pulses (R), 2+ Radial Pulses (L) Gastrointestinal: soft, tenderness (minimal) Extremity: Non Tender, No Calf Tenderness Neurologic/Psychiatric: Alert, Oriented x3, Normal Mood/Affect Skin: Normal Color, Warm/Dry Lymphatic: No Adenopathy Results Lab Laboratory Tests 11/30/22 09:45: White Blood Count 23.7H, Red Blood Count 5.58H, Hemoglobin 16.4H, Hematocrit 48, Mean Corpuscular Volume 87, Mean Corpuscular Hemoglobin 29, Mean Corpuscular Hemoglobin Concent 34, Red Cell Distribution Width 12.5, Platelet Count 444H, Mean Platelet Volume 8.6L, Immature Granulocyte % (Auto) 1, Neutrophils (%) (Auto) 84H, Lymphocytes (%) (Auto) 10L, Monocytes (%) (Auto) 4, Eosinophils (%) (Auto) 0, Basophils (%) (Auto) 1, Neutrophils # (Auto) 19.9H, Lymphocytes # (Auto) 2.3, Monocytes # (Auto) 1.0, Eosinophils # (Auto) 0.1, Basophils # (Auto) 0.1, Immature Granulocyte # (Auto) 0.2H, Neutrophils % (Manual) 82, Lymphocytes % (Manual) 11, Monocytes % (Manual) 7, Platelet Estimate INCREASED, Blood Morphology Comment NORMAL, Sodium Level 138, Potassium Level 4.1, Chloride Level 99, Carbon Dioxide Level 24, Anion Gap 15H, Blood Urea Nitrogen 14, Creatinine 0.85, Estimat Glomerular Filtration Rate 78, BUN/Creatinine Ratio 16, Glucose Level 174H, Calcium Level 9.4, Corrected Calcium 9.7, Total Bilirubin 1.0, Aspartate Amino Transf (AST/SGOT) 17, Alanine Aminotransferase (ALT/SGPT) 9, Alkaline Phosphatase 89, C-Reactive Protein High Sensitivity 1.08H, Total Protein 7.3, Albumin 3.6, Lipase 12 11/30/22 11:17: Urine Color YELLOW, Urine Clarity CLEAR, Urine pH 6.0, Urine Specific [place] 1.015L, Urine Protein NEGATIVE, Urine Glucose (UA) NEGATIVE, Urine Ketones NEGATIVE, Urine Nitrite NEGATIVE, Urine Bilirubin NEGATIVE, Urine Urobilinogen 0.2, Urine Leukocyte Esterase NEGATIVE, Urine RBC (Auto) 1+H, Urine RBC 5-10H, Urine WBC NONE, Urine Squamous Epithelial Cells 0-2, Urine Crystals N, Urine Bacteria NEGATIVE, Urine Casts PRESENT, Urine Hyaline Casts 5-10H, Urine Mucus SMALLH, Urine Culture Indicated NO 11/30/22 11:20: Lactic Acid Level 2.69*H 11/30/22 13:30: Lactic Acid Level 0.98 11/30/22 15:33: Lactic Acid Level 0.67 11/30/22 17:30: Lactic Acid Level 0.65 12/01/22 05:25: White Blood Count 10.0, Red Blood Count 3.75L, Hemoglobin 10.9#L, Hematocrit 34L , Mean Corpuscular Volume 91, Mean Corpuscular Hemoglobin 29, Mean Corpuscular Hemoglobin Concent 32, Red Cell Distribution Width 12.8, Platelet Count 271, Mean Platelet Volume 8.7L, Immature Granulocyte % (Auto) 1, Neutrophils (%) (Auto) 81H, Lymphocytes (%) (Auto) 14, Monocytes (%) (Auto) 4, Eosinophils (%) (Auto) 0, Basophils (%) (Auto) 0, Neutrophils # (Auto) 8.1H, Lymphocytes # (Auto) 1.4, Monocytes # (Auto) 0.4, Eosinophils # (Auto) 0.0, Basophils # (Auto) 0.0, Immature Granulocyte # (Auto) 0.1, Sodium Level 142, Potassium Level 4.4, Chloride Level 113#H, Carbon Dioxide Level 17L, Anion Gap 12, Blood Urea Nitrogen 15, Creatinine 0.65, Estimat Glomerular Filtration Rate 100, BUN/Creatinine Ratio 23, Glucose Level 96, Calcium Level 7.4L Assessment/Plan Assessment/Plan Assessment/Plan Diffuse Abdominal Pain Acute inflammatory bowel disease flare Leukocytosis Lactic Acidosis Nausea/Vomiting CT 11/30/22: Significant inflammatory findings and concerning for high grade bowel obstruction most likely from inflammatory bowel disease (Crohn's) Pain regimen Clear Liquids IV Abx Steroids Ambulate as tolerated Will Monitor over the weekend JOSE RAUL ANTONY DO 12/01/22 0851: Subjective Subjective/Events-last exam Patient feeling better. Had bm this morning. Less abdominal pain. Denies n/v fever sweats chills shortness of breath or chest pain. Objective Exam General Appearance: No Apparent Distress, Thin HEENT: PERRL/EOMI, Normal ENT Inspection Neck: Non Tender, Supple Respiratory: Chest Non Tender, No Accessory Muscle Use, No Respiratory Distress Cardiovascular: Regular Rate, Rhythm, No JVD Gastrointestinal: soft; No distended; tenderness (minimal) Extremity: Non Tender, No Calf Tenderness Neurologic/Psychiatric: Alert, Oriented x3 Skin: Normal Color, Warm/Dry Lymphatic: No Adenopathy Assessment/Plan Assessment/Plan Assessment/Plan Diffuse Abdominal Pain Acute inflammatory bowel disease flare Leukocytosis Lactic Acidosis Nausea/Vomiting CT 11/30/22: Significant inflammatory findings and concerning for high grade bowel obstruction most likely from inflammatory bowel disease (Crohn's) Pain regimen Clear Liquids IV Abx Steroids Ambulate as tolerated Supervisory-Addendum Brief Verification & Attestation Participated in pt care: history, MDM, physical Personally performed: exam, history, MDM, supervision of care Care discussed with: Medical Student Procedures: n/a Results interpretation: Verified all documentation Verification and Attestation of Medical Student E/M Service A medical student performed and documented this service in my presence. I reviewed and verified all information documented by the medical student and made modifications to such information, when appropriate. I personally performed the physical exam and medical decision making. Jose Raul Antony, Dec 01, 2022,08:51 ISABELA BOWEN Dec 01, 2022 08:33 JOSE RAUL ANTONY DO Dec 01, 2022 08:51
[2022-12-01] MEDS ORDERED: ACET-2267 PO (10:04)
[2022-12-01] MEDS ORDERED: IBUP-2185 PO (10:04)
[2022-12-01 11:23] VITALS: BP 100/59
--- NOTE | 2022-12-01 14:10 | Progress Note - Hospitalist ---
Subjective HPI/CC On Admission Date Seen by Provider: Dec 01, 2022 Pt is a 62yoCF who presented to the ER due to abdominal pain. She states it started about a week and a half ago during the Super Bowel and she's been dealing with it ever since. She was seen by her PCP who got an outpatient usg to check her gallbladder. She was told everything was normal on that but her pain continued to worsen. She has has intermittent nausea and vomiting as well along with diarrhea. She did have a BM this AM but now thinks she is constipated because she has not passed any gas. She denies any history of inflammatory bowel or even irritable bowel. She was found to have a leukocytosis on labs and her lactic acid was elevated so CT abdomen was done which revealed severe inflammation of the terminal ileum and svere luminal narrowing of the inflamed bowel with concern for high grade obstruction. I am consulted for medical management. Subjective/Events-last exam Pt reports feeling much better today. No complaints. Family at bedside. Got aurelia rs this morning and tolerating them well. Focused Exam Lactate Level 11/30/22 13:30: Lactic Acid Level 0.98 11/30/22 15:33: Lactic Acid Level 0.67 11/30/22 17:30: Lactic Acid Level 0.65 Objective Exam Vital Signs Vital Signs Date Time Temp Pulse Resp B/P (MAP) Pulse Ox O2 Delivery O2 Flow Rate FiO2 12/01/22 11:23 36.8 55 18 100/59 (73) 99 Room Air Capillary Refill : Less Than 3 Seconds General Appearance: No Apparent Distress Respiratory: Lungs Clear, No Respiratory Distress Cardiovascular: Regular Rate, Rhythm, No Murmur Gastrointestinal: Normal Bowel Sounds, Non Tender, Soft Neurologic/Psychiatric: Alert, Oriented x3 Results/Procedures Lab Laboratory Tests 12/01/22 05:25 Patient resulted labs reviewed. Imaging: Reviewed Imaging Films, Reviewed Imaging Report Assessment/Plan Assessment and Plan Assess & Plan/Chief Complaint Likely Crohn's Flare CT with significant inflammatory findings and concerning for high grade bowel obstruction Spoke with Dr Antony- conservative management at this time Pain regimen Advanced to clears Lactic acidosis resolved Continue steroids Discussed with Dr Antony and plan to monitor over the weekend Diagnosis/Problems Diagnosis/Problems (1) Acute Crohn's disease Status: Acute Qualifiers: Digestive disease complication type: with intestinal obstruction Qualified Codes: K50.912 - Crohn's disease, unspecified, with intestinal obstruction HYUN JACOBSEN MD Dec 01, 2022 14:10
[2022-12-01 16:09] VITALS: BP 100/56
[2022-12-01 19:32] VITALS: BP 104/52
[2022-12-01 23:09] VITALS: BP 109/58
[2022-12-02] MEDS: PIPERACILLIN SODIUM/TAZOBACTAM 4.5 GM in NS (IVPB) 100 ML IV SCH ×3 (02:33→18:50)
[2022-12-02 03:26] VITALS: BP 121/60
[2022-12-02] MEDS: NS IV 1000 ML 1,000 ML IV SCH ×2 (06:31→16:15)
[2022-12-02 06:47] LABS: HEMATOCRIT 36 % (35-52); HEMOGLOBIN 11.4 g/dL (11.5-16.0); MEAN CORPUSCULAR HEMOGLOBIN 29 pg (25-34); MEAN CORPUSCULAR HGB CONC 32 g/dL (32-36); MEAN CORPUSCULAR VOLUME 91 fL (80-99); MEAN PLATELET VOLUME 8.8 fL (9.0-12.2); PLATELET COUNT 301 10^3/uL (130-400); WHITE BLOOD COUNT 7.9 10^3/uL (4.3-11.0)
[2022-12-02 06:54] LABS: POTASSIUM 3.8 MMOL/L (3.6-5.0)
[2022-12-02 06:56] LABS: CALCIUM 7.9 MG/DL (8.5-10.1)
[2022-12-02 07:00] LABS: CREATININE SERUM 0.63 MG/DL (0.60-1.30)
[2022-12-02] MEDS: methylPREDNISolone 125 MG (Solu-MEDROL) VIAL IVP SCH (07:55)
[2022-12-02 07:59] VITALS: BP 119/59
--- NOTE | 2022-12-02 07:59 | Progress Note - Surgery ---
NINI CEDILLO 12/02/22 0759: Subjective Date Seen by a Provider: Dec 02, 2022 Time Seen by a Provider: 07:54 Subjective/Events-last exam Patient is sitting up in bed comfortably. She reports that she is feeling "good' this morning. States she is feeling improved from yesterday with very little pain, when she does have pain it is a 2/10. She was able to have flatus and a small bowel movement that was soft/loose. Denies any melena or hematochezia. She is tolerating broth well and would like to try soft foods. She denies any N/V/D, SOB, chest pain, fever, or chills. She has no other complaints at this time. Review of Systems General: No Chills, No Night Sweats, No Fatigue HEENT: No Head Aches, No Sore Throat Pulmonary: No Dyspnea, No Cough Cardiovascular: Edema; No: Chest Pain Gastrointestinal: Abdominal Pain; No: Nausea, Vomiting Genitourinary: No Dysuria, No Hematuria Musculoskeletal: No: back pain, leg pain Neurological: No: Weakness, Numbness Focused Exam Lactate Level 11/30/22 13:30: Lactic Acid Level 0.98 11/30/22 15:33: Lactic Acid Level 0.67 11/30/22 17:30: Lactic Acid Level 0.65 Objective Exam Vital Signs Date Time Temp Pulse Resp B/P (MAP) Pulse Ox O2 Delivery O2 Flow Rate FiO2 12/02/22 03:26 36.0 61 16 121/60 (80) 96 Room Air 12/01/22 23:09 36.7 58 16 109/58 (75) 99 Room Air 12/01/22 20:00 Room Air 12/01/22 19:32 36.6 53 18 104/52 (69) 97 Room Air 12/01/22 16:09 36.7 50 18 100/56 (71) 95 Room Air 12/01/22 11:23 36.8 55 18 100/59 (73) 99 Room Air 12/01/22 08:29 Room Air I & O 12/02/22 07:00 Intake Total 2200 ml Output Total 450 ml Balance 1750 ml Capillary Refill : Less Than 3 Seconds General Appearance: No Apparent Distress, WD/WN HEENT: PERRL/EOMI, Moist Mucous Membranes Neck: Non Tender, Supple Respiratory: Chest Non Tender, No Accessory Muscle Use, No Respiratory Distress, Decreased Breath Sounds (Bilateral lower lobe) Cardiovascular: Regular Rate, Rhythm, No Murmur Peripheral Pulses: 2+ Radial Pulses (R), 2+ Radial Pulses (L) Gastrointestinal: non tender, soft; No distended, No guarding, No rebound Extremity: No Calf Tenderness, No Pedal Edema, Swelling (Mild swelling in fingers) Neurologic/Psychiatric: Alert, Oriented x3 Skin: Normal Color, Warm/Dry Lymphatic: No Adenopathy Results Lab Laboratory Tests 12/02/22 06:25: White Blood Count 7.9, Red Blood Count 3.92, Hemoglobin 11.4L, Hematocrit 36, Mean Corpuscular Volume 91, Mean Corpuscular Hemoglobin 29, Mean Corpuscular Hemoglobin Concent 32, Red Cell Distribution Width 13.2, Platelet Count 301, Mean Platelet Volume 8.8L, Sodium Level 143, Potassium Level 3.8, Chloride Level 112H, Carbon Dioxide Level 19L, Anion Gap 12, Blood Urea Nitrogen 14, Creatinine 0.63, Estimat Glomerular Filtration Rate 101, BUN/Creatinine Ratio 22, Glucose Level 76, Calcium Level 7.9L Assessment/Plan Assessment/Plan Assessment/Plan Diffuse Abdominal Pain-Improving from yesterday-CT 11/30/22: Significant inflammatory findings and concerning for high grade bowel obstruction most likely from inflammatory bowel disease (Crohn's) Acute inflammatory bowel disease flare Leukocytosis- Resolved Lactic Acidosis Nausea/Vomiting- Currently resolved Plan: Continue pain regimen Clear Liquids advance as tolerated IV Abx/ IV fluids/ Steroids Ambulate as tolerated INOCENTE LARA DO 12/02/22 1359: Subjective Time Seen by a Provider: 12:22 Subjective/Events-last exam Pt seen and examined, states she has no abdominal pain and is tolerating clears. She is also passing gas and had a BM. Review of Systems General: No Chills Pulmonary: No Dyspnea, No Cough Cardiovascular: No: Chest Pain Gastrointestinal: No: Nausea, Vomiting, Abdominal Pain Objective Exam General Appearance: No Apparent Distress, Thin HEENT: PERRL/EOMI, Moist Mucous Membranes Respiratory: Chest Non Tender, No Accessory Muscle Use, No Respiratory Distress, Decreased Breath Sounds (Bilateral lower lobe) Cardiovascular: Regular Rate, Rhythm, No Murmur Gastrointestinal: non tender, soft; No distended, No guarding, No rebound Extremity: No Pedal Edema, Swelling (Mild swelling in fingers) Neurologic/Psychiatric: Alert, Oriented x3 Assessment/Plan Assessment/Plan Assessment/Plan Diffuse Abdominal Pain-Improving from yesterday-CT 11/30/22: Significant inflammatory findings and concerning for high grade bowel obstruction most likely from inflammatory bowel disease (Crohn's) Acute inflammatory bowel disease flare Leukocytosis- Resolved Lactic Acidosis Nausea/Vomiting- Currently resolved Plan: Continue pain regimen Will advance to soft diet now IV Abx/ IV fluids/ Steroids Encourage Ambulation Supervisory-Addendum Brief Verification & Attestation Participated in pt care: history, MDM, physical Personally performed: exam, history, MDM, supervision of care Care discussed with: Medical Student Procedures: n/a Verification and Attestation of Medical Student E/M Service A medical student performed and documented this service. I then reviewed and verified all information documented by the medical student and made modifications to such information, when appropriate. I personally performed a physical exam, medical decision making and then discussed any differences between the notes and made revisions as necessary to create one note. Inocente Lara , 12/02/22 , 14:03 NINI CEDILLO Dec 02, 2022 07:59 INOCENTE LARA DO Dec 02, 2022 13:59
--- NOTE | 2022-12-02 11:38 | Progress Note - Hospitalist ---
Subjective HPI/CC On Admission Date Seen by Provider: Dec 02, 2022 Pt is a 62yoCF who presented to the ER due to abdominal pain. She states it started about a week and a half ago during the Super Bowel and she's been dealing with it ever since. She was seen by her PCP who got an outpatient usg to check her gallbladder. She was told everything was normal on that but her pain continued to worsen. She has has intermittent nausea and vomiting as well along with diarrhea. She did have a BM this AM but now thinks she is constipated because she has not passed any gas. She denies any history of inflammatory bowel or even irritable bowel. She was found to have a leukocytosis on labs and her lactic acid was elevated so CT abdomen was done which revealed severe inflammation of the terminal ileum and svere luminal narrowing of the inflamed bowel with concern for high grade obstruction. I am consulted for medical management. Subjective/Events-last exam Pt reports doing well. Had a BM today. Tolerating clears well. No complaints. Focused Exam Lactate Level 11/30/22 13:30: Lactic Acid Level 0.98 11/30/22 15:33: Lactic Acid Level 0.67 11/30/22 17:30: Lactic Acid Level 0.65 Objective Exam Vital Signs Vital Signs Date Time Temp Pulse Resp B/P (MAP) Pulse Ox O2 Delivery O2 Flow Rate FiO2 12/02/22 08:30 Room Air 12/02/22 07:59 36.8 54 20 119/59 (79) 98 Capillary Refill : Less Than 3 Seconds General Appearance: No Apparent Distress, Thin Respiratory: Lungs Clear, No Respiratory Distress Cardiovascular: Regular Rate, Rhythm, No Murmur Gastrointestinal: Normal Bowel Sounds, Non Tender, Soft Neurologic/Psychiatric: Alert, Oriented x3, Normal Mood/Affect Results/Procedures Lab Laboratory Tests 12/02/22 06:25 Patient resulted labs reviewed. Imaging: Reviewed Imaging Films, Reviewed Imaging Report Assessment/Plan Assessment and Plan Assess & Plan/Chief Complaint Likely Crohn's Flare CT with significant inflammatory findings and concerning for high grade bowel obstruction Surgery planning conservative management at this time with outpatient colonoscopy in a few weeks Pain well controlled Advanced to clears- tolerating well Continue steroids Diagnosis/Problems Diagnosis/Problems (1) Acute Crohn's disease Status: Acute Qualifiers: Digestive disease complication type: with intestinal obstruction Qualified Codes: K50.912 - Crohn's disease, unspecified, with intestinal obstruction HYUN JACOBSEN MD Dec 02, 2022 11:38
[2022-12-02 11:40] VITALS: BP 116/57
[2022-12-02 16:10] VITALS: BP 112/70
[2022-12-02 19:34] VITALS: BP 106/62
[2022-12-03] VITALS: BP 112/67
[2022-12-03] MEDS: PIPERACILLIN SODIUM/TAZOBACTAM 4.5 GM in NS (IVPB) 100 ML IV SCH ×2 (03:13→11:50)
--- NOTE | 2022-12-03 05:49 | Progress Note - Surgery ---
NINI CEDILLO 12/03/22 0549: Subjective Date Seen by a Provider: Dec 03, 2022 Time Seen by a Provider: 05:44 Subjective/Events-last exam Patient is sitting up in bed comfortably this morning. She reports she is "pain free" this morning. She was able to eat some soft food yesterday without prob emily. She endorses flatus, but no BM since yesterday morning. She was able to ambulate on her own yesterday. She denies any fever, chills, N/V/D, SOB, or dysuria. Overall she feels much improved. No other complaints at this time. Review of Systems General: No Chills, No Night Sweats HEENT: Head Aches; No Sore Throat Pulmonary: No Dyspnea, No Cough Cardiovascular: No: Chest Pain, Edema Gastrointestinal: No: Nausea, Vomiting, Abdominal Pain Genitourinary: No Dysuria, No Hematuria Musculoskeletal: No: back pain, leg pain Neurological: No: Weakness, Numbness Focused Exam Lactate Level 11/30/22 13:30: Lactic Acid Level 0.98 11/30/22 15:33: Lactic Acid Level 0.67 11/30/22 17:30: Lactic Acid Level 0.65 Objective Exam Vital Signs Date Time Temp Pulse Resp B/P (MAP) Pulse Ox O2 Delivery O2 Flow Rate FiO2 12/03/22 00:00 36.3 51 16 112/67 (82) 98 Room Air 12/02/22 19:57 Room Air 12/02/22 19:34 37.0 57 16 106/62 (77) 95 Room Air 12/02/22 16:10 37.5 56 18 112/70 (84) 97 Room Air 12/02/22 11:40 37.5 57 20 116/57 (76) 97 Room Air 12/02/22 08:30 Room Air 12/02/22 07:59 36.8 54 20 119/59 (79) 98 Room Air I & O 12/03/22 07:00 Intake Total 860 ml Balance 860 ml Capillary Refill : Less Than 3 Seconds General Appearance: No Apparent Distress, WD/WN, Thin HEENT: PERRL/EOMI, Moist Mucous Membranes Neck: Non Tender, Supple Respiratory: Chest Non Tender, Normal Breath Sounds, No Accessory Muscle Use, No Respiratory Distress Cardiovascular: Regular Rate, Rhythm, No Murmur Peripheral Pulses: 2+ Radial Pulses (R), 2+ Radial Pulses (L) Gastrointestinal: non tender, soft; No distended, No guarding, No rebound Extremity: No Calf Tenderness, No Pedal Edema, Swelling (Mild swelling in fingers) Neurologic/Psychiatric: Alert, Oriented x3 Skin: Normal Color, Warm/Dry Lymphatic: No Adenopathy Results Lab Laboratory Tests 12/02/22 06:25: White Blood Count 7.9, Red Blood Count 3.92, Hemoglobin 11.4L, Hematocrit 36, Mean Corpuscular Volume 91, Mean Corpuscular Hemoglobin 29, Mean Corpuscular Hem oglobin Concent 32, Red Cell Distribution Width 13.2, Platelet Count 301, Mean Platelet Volume 8.8L, Sodium Level 143, Potassium Level 3.8, Chloride Level 112H , Carbon Dioxide Level 19L, Anion Gap 12, Blood Urea Nitrogen 14, Creatinine 0.63, Estimat Glomerular Filtration Rate 101, BUN/Creatinine Ratio 22, Glucose Level 76, Calcium Level 7.9L Assessment/Plan Assessment/Plan Assessment/Plan Diffuse Abdominal Pain-Improving from yesterday-CT 11/30/22: Significant inflammatory findings and concerning for high grade bowel obstruction most likely from inflammatory bowel disease (Crohn's) Acute inflammatory bowel disease flare Leukocytosis- Resolved Lactic Acidosis Nausea/Vomiting- Currently resolved Plan: Continue pain regimen Tolerating soft diet well Continue IV Abx/ IV fluids/ Steroids Encourage Ambulation INOCENTE BOYER DO 12/03/22 1308: Subjective Time Seen by a Provider: 12:53 Subjective/Events-last exam Pt seen and examined, states she s having no problems and ready to go home. Review of Systems General: No Chills Pulmonary: No Dyspnea, No Cough Cardiovascular: No: Chest Pain Gastrointestinal: No: Nausea, Vomiting, Abdominal Pain Objective Exam General Appearance: No Apparent Distress, WD/WN, Thin HEENT: PERRL/EOMI, Moist Mucous Membranes Respiratory: Chest Non Tender, Lungs Clear, Normal Breath Sounds, No Accessory Muscle Use, No Respiratory Distress Cardiovascular: Regular Rate, Rhythm, No Murmur Gastrointestinal: non tender, soft; No distended, No guarding, No rebound Extremity: Swelling (Mild swelling in fingers) Neurologic/Psychiatric: Alert, Oriented x3 Assessment/Plan Assessment/Plan Assessment/Plan Acute inflammatory bowel disease flare - probable Crohn's controlled with steroids and ABX Leukocytosis- Resolved Plan: D/C IV and D/C home, will send Rx for Abx/Steroids F/U with Dr. Antony in a week Supervisory-Addendum Brief Verification & Attestation Participated in pt care: history, MDM, physical Personally performed: exam, history, MDM, supervision of care Care discussed with: Medical Student Procedures: n/a Verification and Attestation of Medical Student E/M Service A medical student performed and documented this service. I then reviewed and verified all information documented by the medical student and made modification s to such information, when appropriate. I personally performed a physical exam, medical decision making and then discussed any differences between the notes and made revisions as necessary to create one note. Inocente Boyer , 12/03/22 , 13:08 NINI CEDILLO Dec 03, 2022 05:49 INOCENTE BOYER DO Dec 03, 2022 13:08
[2022-12-03 07:47] VITALS: BP 119/70
[2022-12-03] MEDS: methylPREDNISolone 125 MG (Solu-MEDROL) VIAL IVP SCH (09:29)
--- NOTE | 2022-12-03 10:58 | Progress Note - Hospitalist ---
Subjective HPI/CC On Admission Date Seen by Provider: Dec 03, 2022 Pt is a 62yoCF who presented to the ER due to abdominal pain. She states it started about a week and a half ago during the Super Bowel and she's been dealing with it ever since. She was seen by her PCP who got an outpatient usg to check her gallbladder. She was told everything was normal on that but her pain continued to worsen. She has has intermittent nausea and vomiting as well along with diarrhea. She did have a BM this AM but now thinks she is constipated because she has not passed any gas. She denies any history of inflammatory bowel or even irritable bowel. She was found to have a leukocytosis on labs and her lactic acid was elevated so CT abdomen was done which revealed severe inflammation of the terminal ileum and svere luminal narrowing of the inflamed bowel with concern for high grade obstruction. I am consulted for medical management. Subjective/Events-last exam Pt repors doing muchbetter. Toelrating advanced diet. Had a BM this AM. Pain resolved. Focused Exam Lactate Level 11/30/22 13:30: Lactic Acid Level 0.98 11/30/22 15:33: Lactic Acid Level 0.67 11/30/22 17:30: Lactic Acid Level 0.65 Objective Exam Vital Signs Vital Signs Date Time Temp Pulse Resp B/P (MAP) Pulse Ox O2 Delivery O2 Flow Rate FiO2 12/03/22 08:00 Room Air 12/03/22 07:47 37.1 52 20 119/70 (86) 97 Capillary Refill : Less Than 3 Seconds General Appearance: No Apparent Distress, Thin Respiratory: Lungs Clear, No Respiratory Distress Cardiovascular: Regular Rate, Rhythm, No Murmur Gastrointestinal: Normal Bowel Sounds, Non Tender, Soft Neurologic/Psychiatric: Alert, Oriented x3 Results/Procedures Lab Patient resulted labs reviewed. Imaging: Reviewed Imaging Films, Reviewed Imaging Report Assessment/Plan Assessment and Plan Assess & Plan/Chief Complaint Likely Crohn's Flare CT with significant inflammatory findings and concerning for high grade bowel obstruction Surgery planning conservative management at this time with outpatient colonoscopy in a few weeks Pain well controlled tolerating soft diet Continue steroids Ok for DC on steroids from medical standpoint Needs outpatient follow up with her PCP next week (requesting cardiac screening as an outpatient) Diagnosis/Problems Diagnosis/Problems (1) Acute Crohn's disease Status: Acute Qualifiers: Digestive disease complication type: with intestinal obstruction Qualified Codes: K50.912 - Crohn's disease, unspecified, with intestinal obstruction Copy Copies To 1: HYUN Lake MD Dec 03, 2022 10:58
--- NOTE | 2022-12-03 13:31 | Discharge Inst-Surgical ---
Discharge Inst-Surgical Depart Medication/Instructions New, Converted or Re-Newed RX: Transmitted to Pharmacy Patient Instructions Follow up Appt: Make appointment for 1 week. [phone] Instructions: May shower in 24 hours, no tub bath or soaking. Use incentive spirometer at home as directed. No Smoking Symptoms to Report: Appetite Changes, Extremity Discoloration, Numbness/Tingling, Swelling Increased, Bleeding Excessive, Eyesight Changes, Pain Increased, Urine Color Change, Constipation(Persistent), Fever over 101 degree F, Pain/Pressure in chest, Urinating Difficulty, Cough Up/Vomit Blood, Heart Beat Irreg/Pounding, Pain/Pressure in jaw, Cramps in feet or legs, Lightheadedness, Pain/Pressure in shoulder, Diarrhea(Persistent), Memory Changes Suddenly, Questions/Concerns, Weight gain consecutive days, Dizziness/Fainting, Nausea/Vomiting, Shortness of Breath, Weight gain over 2 pounds If questions or concerns contact your physician Or seek help at emergency department. Activity Activity as Tolerated: Yes Driving Instructions: You May Drive Diet Discharge Diet: No Restrictions Diet After 24 Hours: Clear Liquid if Nauseous If Any Problems/Questions/Issu: Contact Your Physician, Go to Emergency Room Skin/Wound Care Infection Signs and Symptoms: Increased Swelling, Temperature Above 101 F Bathing Instructions: AMIRA Bob DO Dec 03, 2022 13:31
[2022-12-03] MEDS ORDERED: PRD20T PO (13:33)
[2022-12-03] MEDS ORDERED: AMOX-355 PO (13:33)
== END 2022-12-03 14:14 | disposition home or self-care (01) | DRG 386 ==
LOC: EDUNIT# 09:34 → ER 09:35 → 4TH 13:11
PROVIDERS: ADMIT Surgery; ATTEND Surgery
PROC: 0D9670Z Drainage of Stomach with Drainage Device, Via Natural or Artificial Opening (ICD-10-PCS; principal; 2022-11-30)
DX: K50.912 Crohn's disease, unspecified, with intestinal obstruction (principal); E87.20 Acidosis, unspecified; R11.2 Nausea with vomiting, unspecified; D72.829 Elevated white blood cell count, unspecified; D75.1 Secondary polycythemia; K21.9 Gastro-esophageal reflux disease without esophagitis; F17.290 Nicotine dependence, other tobacco product, uncomplicated; Z80.0 Family history of malignant neoplasm of digestive organs; Z28.310 Unvaccinated for COVID-19
CPT/HCPCS: 36415; 74177; 80048; 80053; 81000; 83605; 83690; 85007; 85025; 85027; 86141

== ENCOUNTER 2023-01-03 05:39 | Outpatient (CLI) | payer BC ==
[~2023-01-03] VITALS: Ht 180.3 cm; Wt 47.0 kg
[~2023-01-03 05:39] MED LIST changes: +ACET-2267 PO; +AMOX-355 PO; +IBUP-2185 PO; +PRD20T PO
== END 2023-01-03 13:53 | disposition home or self-care (01) ==
LOC: PREOP 05:39
PROVIDERS: ATTEND Surgery
DX: Z01.818 Encounter for other preprocedural examination (principal)

== ENCOUNTER 2023-01-16 07:26 | Day surgery (SDC) | payer BC ==
[~2023-01-16] VITALS: Ht 180.3 cm; Wt 47.0 kg
[2023-01-16] MEDS ORDERED: HURRICAINE EXT TUBE (BENZOCAINE) XX PRN (07:30)
[2023-01-16] MEDS ORDERED: LACTATED RINGERS 1,000 ML IV STA (07:30)
[2023-01-16 07:40] VITALS: BP 122/75
[2023-01-16] MEDS ORDERED: PROPOFOL INJECTION 50 ML IV ONE (08:42)
--- NOTE | 2023-01-16 09:27 | Anesthesia-General Post-Op ---
MAC Patient Condition Mental Status/LOC: Same as Preop Cardiovascular: Satisfactory Nausea/Vomiting: Absent Respiratory: Satisfactory Pain: Controlled Complications: Absent Post Op Complications Complications None Follow Up Care/Instructions Patient Instructions None needed. Anesthesiology Discharge Order Discharge Order Patient is doing well, no complaints, stable vital signs, no apparent adverse anesthesia problems. No complications reported per nursing. DOMITILA BACON CRNA Jan 16, 2023 09:27
--- NOTE | 2023-01-16 09:28 | Discharge Inst-Simple/Standard ---
Discharge Inst-Standard Reconcile Patient Problems Problems Reviewed?: Yes Patient Instructions/Follow Up Plan of Care/Instructions/FU: F/u in [address] Antony Activity as Tolerated: Yes Discharge Diet: No Restrictions, Regular Diet ULYSSES ANTONY DO Jan 16, 2023 09:28
[2023-01-16 09:30] VITALS: BP 130/70
--- NOTE | 2023-01-16 09:34 | Progress Note-Post Operative ---
Post-Operative Progess Note Surgeon (s)/Glue Jointer Feeder (s) Surgeon ULYSSES ORANTES DO Glue Jointer Feeder: n/a Pre-Operative Diagnosis IBD, GERD Post-Operative Diagnosis mucosal changes of the ileum, hiatal hernia Procedure & Operative Findings Date of Procedure 01/16/23 Procedure Performed/Findings colonoscopy with cold biopsies, EGD with biopsies Anesthesia Type per director of advertising sales Estimated Blood Loss Estimated blood loss (mL): none Specimens/Packing Specimens Removed biopsies of the ileum, antrum and GE junction ULYSSES ORANTES DO Jan 16, 2023 09:34
[2023-01-16 09:35] VITALS: BP 139/71
[2023-01-16 09:40] VITALS: BP 136/65
[2023-01-16 09:45] VITALS: BP 139/64
[2023-01-16 10:08] VITALS: BP 139/64
--- NOTE | 2023-01-16 13:52 | OPERATIVE REPORT ---
DATE OF SERVICE: 01/16/2023 PREOPERATIVE DIAGNOSES: Inflammatory bowel disease, GERD. POSTOPERATIVE DIAGNOSES: Mucosal changes of the ileum, small hiatal hernia. PROCEDURES: EGD with biopsies, colonoscopy with cold biopsies of ileum. SURGEON: Ulysses Antony DO ANESTHESIA: Per MATERIALS CLERK. ESTIMATED BLOOD LOSS: None. COMPLICATIONS: None. INDICATIONS: The patient is a 62-year-old female who has had admissions with findings suggestive of inflammatory bowel disease. She understands risks and benefits of procedure and wishes to proceed. Consent was signed in chart. DESCRIPTION OF PROCEDURE: The patient was taken to endoscopy suite, placed in left lateral recumbent position. Timeout was performed. Scope was inserted in the mouth, down the esophagus, stomach, into the duodenum without difficulty. There were no polyps, masses or ulcerations within the duodenum. Scope was then slowly retracted back to the stomach where it was further insufflated. No polyps, masses or ulcerations within the stomach. Two biopsies of the antrum were obtained. Scope was retroflexed noting a small hiatal hernia, no other pathology. Scope was returned to its normal position, slowly withdrawn until distal esophagus. No polyps, masses or ulcerations. Biopsy of GE junction was obtained. Scope was then slowly retracted back until completely removed, noting no other pathology. Digital rectal exam was performed. No palpable polyps, masses or ulcerations. Scope was inserted in the rectum, advanced all the way to the cecum with minimal difficulty. Prep was adequate with irrigation and suction. No polyps, masses or ulcerations in the cecum. The ileocecal valve was then intubated. Inflammatory changes and mucosal changes of the distal ileum were present. Cold biopsies were obtained. Scope was slowly retracted back into the colon. No polyps, masses or ulcerations within the ascending, transverse, descending and sigmoid colon. Once in the rectum, scope was retroflexed noting no other pathology. Scope was returned to its normal position, slowly withdrawn until completely removed. The patient tolerated the procedure well, no complications, taken to recovery room in stable condition. RECOMMENDATIONS: The patient will need repeat colonoscopy for screening guidelines in 1-2 years if inflammatory bowel disease. We will not make any medication changes at this time. She will follow up in the office in 1 week. Job ID: [id number] DocumentID: [id number] Dictated Date: 01/16/2023 09:31:39 Repair Department Supervisor Date: 01/16/2023 13:50:00 Dictated By: ULYSSES ANTONY DO
== END 2023-01-16 10:16 | disposition home or self-care (01) ==
LOC: ENDO 07:26
PROVIDERS: ATTEND Surgery
DX: K52.9 Noninfective gastroenteritis and colitis, unspecified (principal); K44.9 Diaphragmatic hernia without obstruction or gangrene; K21.9 Gastro-esophageal reflux disease without esophagitis; Z80.0 Family history of malignant neoplasm of digestive organs; Z87.891 Personal history of nicotine dependence

== ENCOUNTER 2023-02-19 07:51 | Observation (INO) | payer BC ==
[~2023-02-19] VITALS: Ht 180.3 cm; Wt 48.7 kg
[2023-02-19] MEDS ORDERED: morphine INJ 10 MG/ML 1ML (SYR OR VIAL) IVP STA ×2 (08:05→08:58)
--- NOTE | 2023-02-19 08:11 | ED Fall/Injury ---
General Chief Complaint: Hip/Pelvic Problems Stated Complaint: FALL | LT HIP INJ Source: patient, family Exam Limitations: no limitations History of Present Illness Date Seen by Provider: February 19, 2023 Time Seen by Provider: 07:53 Initial Comments 62-year-old female with past medical history potentially of inflammatory bowel disease, although had a negative biopsy and is not on medications for it coming in after she tripped and fell now having left hip pain. She was going outside of your chickens, tripped on a hook, landed on her left hip onto a rock. Had immediate sharp and severe pain. Laid there until her picked her up shortly after. She did hit her head on a rock, did not pass out, no nausea or v omiting, no vision changes or severe headache. She also has lower back pain. She is postmenopausal. Allergies and Home Medications Allergies Coded Allergies: clindamycin (Unverified Allergy, Intermediate, 11/30/22) "CHEST PAIN AND PRESSURE" Patient Home Medication List Home Medication List Reviewed: Yes No Active Prescriptions or Reported Meds Review of Systems Review of Systems Constitutional: No fever Eyes: No Symptoms Reported Ears, Nose, Mouth, Throat: no symptoms reported Respiratory: no symptoms reported Cardiovascular: no symptoms reported Gastrointestinal: no symptoms reported Genitourinary: no symptoms reported Musculoskeletal: see HPI Skin: no symptoms reported Psychiatric/Neurological: No Symptoms Reported All Other Systems Reviewed Negative Unless Noted: Yes Past Cawfpvy-Sbygqt-Mtuqms Hx Patient Social History Tobacco Use?: No Use of E-Cig and/or Vaping dev: No Substance use?: No Alcohol Use?: No Pt feels they are or have been: No Seasonal Allergies Seasonal Allergies: Yes Past Medical History Surgery/Hospitalization HX: RT THYROID GOITER Surgeries: No Respiratory: No Cardiac: No Neurological: No BEHAVIOR THERAPIST History: Menopausal Genitourinary: No Gastrointestinal: No Gastroesophageal Reflux Musculoskeletal: Yes Scoliosis Endocrine: Yes (GOITER) Cancer: No Psychosocial: No Integumentary: No Blood Disorders: No Family Medical History No Pertinent Family Hx Physical Exam Vital Signs Vital Signs - First Documented 02/19/23 07:56 Temp 36.0 Pulse 74 Resp 16 B/P (MAP) 124/79 (94) Pulse Ox 99 O2 Delivery Room Air Capillary Refill : Height, Weight, BMI Height: 5'11.00" Weight: 135lbs. oz. 61.435550ns; 14.45 BMI Method:Stated General Appearance: mild distress, thin HEENT: PERRL/EOMI, normal ENT inspection, pharynx normal Neck: non-tender, full range of motion, supple, normal inspection Cardiovascular: regular rate, rhythm, no edema, no murmur Respiratory: chest non-tender, lungs clear, normal breath sounds, no respiratory distress, no accessory muscle use Gastrointestinal: normal bowel sounds, non tender, soft; No distended, No guarding, No rebound Extremities: other (Left hip pain to palpation and with any movement, normal distal pulses and sensation, normal motor exam in her lower extremities however guarded due to pain, she does have some lower back discomfort as well) Neurologic/Psychiatric: no motor/sensory deficits, alert, normal mood/affect, oriented x 3 Skin: normal color, warm/dry Pepe Coma Score Best Eye Response: (4) Open Spontaneously Best Verbal Response: (5) Oriented Best Motor Response: (6) Obeys Commands Progress/Results/Core Measures Results/Orders Lab Results Laboratory Tests Test 02/19/23 08:25 Range/Units White Blood Count 14.0 H 4.3-11.0 10^3/uL Red Blood Count 4.77 3.80-5.11 10^6/uL Hemoglobin 13.8 11.5-16.0 g/dL Hematocrit 42 35-52 % Mean Corpuscular Volume 88 80-99 fL Mean Corpuscular Hemoglobin 29 25-34 pg Mean Corpuscular Hemoglobin Concent 33 32-36 g/dL Red Cell Distribution Width 13.0 10.0-14.5 % Platelet Count 437 H 130-400 10^3/uL Mean Platelet Volume 8.5 L 9.0-12.2 fL Immature Granulocyte % (Auto) 1 % Neutrophils (%) (Auto) 82 H 42-75 % Lymphocytes (%) (Auto) 11 L 12-44 % Monocytes (%) (Auto) 4 0-12 % Eosinophils (%) (Auto) 0 0-10 % Basophils (%) (Auto) 1 0-10 % Neutrophils # (Auto) 11.5 H 1.8-7.8 10^3/uL Lymphocytes # (Auto) 1.5 1.0-4.0 10^3/uL Monocytes # (Auto) 0.6 0.0-1.0 10^3/uL Eosinophils # (Auto) 0.1 0.0-0.3 10^3/uL Basophils # (Auto) 0.1 0.0-0.1 10^3/uL Immature Granulocyte # (Auto) 0.2 H 0.0-0.1 10^3/uL Neutrophils % (Manual) 78 % Lymphocytes % (Manual) 11 % Monocytes % (Manual) 4 % Eosinophils % (Manual) 1 % Band Neutrophils 6 % Blood Morphology Comment NORMAL Sodium Level 140 135-145 MMOL/L Potassium Level 4.5 3.6-5.0 MMOL/L Chloride Level 104 98-107 MMOL/L Carbon Dioxide Level 24 21-32 MMOL/L Anion Gap 12 5-14 MMOL/L Blood Urea Nitrogen 17 7-18 MG/DL Creatinine 0.69 0.60-1.30 MG/DL Estimat Glomerular Filtration Rate 99 BUN/Creatinine Ratio 25 Glucose Level 128 H 70-105 MG/DL Calcium Level 9.3 8.5-10.1 MG/DL My Orders Orders - RUTH RENDON MD Ct Head Wo (02/19/23 08:03) Ct Lumbar Spine Wo (02/19/23 08:03) Pelvis With Left Hip 2-3 Views (02/19/23 08:03) Morphine Injection (Morphine Injection (02/19/23 08:05) Ondansetron Injection (Zofran Injectio (02/19/23 08:15) Basic Metabolic Panel (02/19/23 08:05) Cbc With Automated Diff (02/19/23 08:05) Ct Pelvis Wo (02/19/23 08:32) Manual Differential (02/19/23 08:25) Morphine Injection (Morphine Injection (02/19/23 08:58) Ketorolac Injection (Toradol Injection) (02/19/23 09:00) Medications Given in ED Current Medications Medications Dose Ordered Sig/Андрей Route Start Time Stop Time Status Last Admin Dose Admin Ondansetron HCl 4 mg ONCE ONCE IVP 02/19/23 08:15 02/19/23 08:16 DC 02/19/23 08:24 4 MG Vital Signs/I&O 02/19/23 07:56 Temp 36.0 Pulse 74 Resp 16 B/P (MAP) 124/79 (94) Pulse Ox 99 O2 Delivery Room Air Progress Progress Note : Progress Note 62-year-old female with above history coming in after mechanical fall. ABCs were intact and vitals were stable on presentation. She is neurovascularly intact in her extremities. X-ray pelvis and left hip ordered and interpreted by me showing superior and inferior pubic rami fractures. I discussed the case with Dr. Locke, who recommends weightbearing as tolerated and follow-up as an outpatient with him. Likely needs an x-ray of her pelvis within a month. Patient was given IV morphine on arrival, had continued pain and required an increasing dose. CT head, lumbar spine, pelvis ordered interpreted by me showing no obvious intracranial hemorrhage, no obvious lumbar spine fracture. The CT imaging of the pelvis showed similar injuries as the plain film. The patient is having significant pain and needs admission for assistance with ambulation as well as pain control. I discussed the case with Dr. Woodward who will admit her for further evaluation and management. Diagnostic Imaging Diagonstic Imaging: Xray (pelvis and left hip) Comments NAME: NIETODWAYNE [facility] REC#: [id number] PT STATUS: REG ER : 1960 PHYSICIAN: RUTH RENDON MD ADMIT DATE: 02/19/23/ER Draft Date of Exam:02/19/23 PELVIS WITH LEFT HIP 2-3 VIEWS INDICATION: Left hip pain, fall. TIME OF EXAM: 8:42 AM. FINDINGS: There is a comminuted fracture involving the left pubic body with involvement of the superior and inferior pubic rami. Right-sided pubic body and rami appear to be intact. Both hips show normal femoroacetabular alignment. The femoral heads and necks appear to be intact. The SI joints and symphysis are non-widened. IMPRESSION: Fractures involving the left hemipelvis with involvement of the pubic body and superior and inferior pubic rami. No hip fractures are identified. Dictated on workstation # [id number] Dict: 02/19/23 0839 Trans: 02/19/23 0843 [id number] Interpreted by: MIRELLA ANNA MD Electronically signed by: NAME: DWAYNE NIETO [facility] REC#: [id number] PT STATUS: REG ER : 1960 PHYSICIAN: RUTH RENDON MD ADMIT DATE: 02/19/23/ER Draft Date of Exam:02/19/23 CT HEAD WO PROCEDURE: CT head without contrast. TECHNIQUE: Multiple contiguous axial images were obtained through the brain without the use of intravenous contrast. Auto Exposure Controls were utilized during the CT exam to meet ALARA standards for radiation dose reduction. INDICATION: Head injury from a fall. FINDINGS: The ventricles are normal in size, shape and position. There are no masses or hemorrhages. There are no extra-axial fluid collections. IMPRESSION: Negative CT head. Dictated on workstation # [id number] Dict: 02/19/23 0855 Trans: 02/19/23 0857 [id number] Interpreted by: AYAN ALVAREZ MD Electronically signed by: [facility] [place], [place] NAME: DWAYNE NIETO [facility] REC#: [id number] PT STATUS: REG ER : 1960 PHYSICIAN: RUTH RENDON MD ADMIT DATE: 02/19/23/ER Signed Date of Exam:02/19/23 CT PELVIS WO PROCEDURE: CT pelvis without contrast. TECHNIQUE: Multiple contiguous axial images were obtained through the pelvis without the use of intravenous contrast. Sagittal and coronal reformations were performed. Auto Exposure Controls were utilized during the CT exam to meet ALARA standards for radiation dose reduction. INDICATION: Left hip pain. COMPARISON: CT dated 11/30/2022 and radiographs from same day FINDINGS: There are acute mildly displaced fractures involving the left superior and inferior pubic rami. There is also acute fracture of the left sacral alar (image 25, series 2). SI joints are symmetric. Pubic symphysis is within normal limits. No other acute osseous deformity of the pelvis is seen. Bilateral femoroacetabular joint spaces are also maintained. Included portions of the bilateral proximal femurs are also intact. Urinary bladder is unopacified. No calculi are seen within urinary bladder. There is no loculated fluid collection, free fluid or free air. IMPRESSION: 1. Acute mildly displaced fractures of left superior and inferior pubic rami. 2. Acute fracture of the left sacral ala. This may be amenable to sacroplasty. Dictated by: Dictated on workstation # [id number] Dict: 02/19/23855 Trans: 02/19/23904 SAVITA [id number] Interpreted by: RC BRANDT MD Electronically signed by: RC BRANDT MD 02/19/23904 [facility] [place] [place] NAME: DWAYNE NIETO [facility] REC#: [id number] PT STATUS: REG ER : 1960 PHYSICIAN: RUTH RENDON MD ADMIT DATE: 02/19/23/ER Draft Date of Exam:02/19/23 CT LUMBAR SPINE WO PROCEDURE: CT lumbar spine without contrast. TECHNIQUE: Multiple contiguous axial images were obtained through the lumbar spine without the use of intravenous contrast. Sagittal and coronal reformations were then performed. Auto Exposure Controls were utilized during the CT exam to meet ALARA standards for radiation dose reduction. INDICATION: Trauma. Fall. Back pain. COMPARISON: None. FINDINGS: There are 5 lumbar-type vertebral bodies for the purposes of this report. Mild right apex lumbar scoliosis. Vertebral body heights are preserved. No fractures. Minimal scattered degenerative endplate changes and facet arthropathy. No CT evidence of spinal canal stenosis. Acute appearing partially visualized displaced fractures of the left sacral ala S1 and S2 segments. IMPRESSION: 1. No acute CT findings in the lumbar spine. 2. Partially visualized acute appearing displaced fractures of the left sacral ala at the S1 and S2 levels. Please see today's dedicated CT of the pelvis for further description. Dictated on workstation # [id number] Dict: 02/19/23855 Trans: 02/19/23903 JOSÉ [id number] Interpreted by: ZAC SON MD Electronically signed by: Departure Impression Primary Impression: Multiple pelvic fractures Qualified Codes: S32.810A - Multiple fractures of pelvis with stable disruption of pelvic ring, initial encounter for closed fracture Disposition: ADMITTED INPATIENT Condition: Stable Admissions Decision to Admit Reason: Admit from ER (General) Decision to Admit/Date: February 19, 2023 Time/Decision to Admit Time: 09:15 Departure-Patient Inst. Referrals: [facility] [place] (PCP) Primary Care Physician ZAC SUTHERLAND (Family) Primary Care Physician Scripts No Active Prescriptions or Reported Meds RUTH RENDON MD February 19, 2023 08:11
[2023-02-19] MEDS ORDERED: ONDANSETRON 4 MG/2 ML (SDV) Z0FRAN IVP ONE (08:15)
[2023-02-19 08:32] LABS: BASOPHILS # (AUTO) 0.1 10^3/uL (0.0-0.1); BASOPHILS % (AUTO) 1 % (0-10); EOSINOPHILS # (AUTO) 0.1 10^3/uL (0.0-0.3); EOSINOPHILS % (AUTO) 0 % (0-10); HEMATOCRIT 42 % (35-52); HEMOGLOBIN 13.8 g/dL (11.5-16.0); LYMPHOCYTES # (AUTO) 1.5 10^3/uL (1.0-4.0); LYMPHOCYTES % (AUTO) 11 % (12-44); MEAN CORPUSCULAR HEMOGLOBIN 29 pg (25-34); MEAN CORPUSCULAR HGB CONC 33 g/dL (32-36); MEAN CORPUSCULAR VOLUME 88 fL (80-99); MEAN PLATELET VOLUME 8.5 fL (9.0-12.2); MONOCYTES # (AUTO) 0.6 10^3/uL (0.0-1.0); MONOCYTES % (AUTO) 4 % (0-12); NEUTROPHILS # (AUTO) 11.5 10^3/uL (1.8-7.8); NEUTROPHILS % (AUTO) 82 % (42-75); PLATELET COUNT 437 10^3/uL (130-400)
[2023-02-19 08:42] LABS: POTASSIUM 4.5 MMOL/L (3.6-5.0)
--- NOTE | 2023-02-19 08:43 | Diagnostic Imaging Report ---
INDICATION: Left hip pain, fall. TIME OF EXAM: 8:42 AM. FINDINGS: There is a comminuted fracture involving the left pubic body with involvement of the superior and inferior pubic rami. Right-sided pubic body and rami appear to be intact. Both hips show normal femoroacetabular alignment. The femoral heads and necks appear to be intact. The SI joints and symphysis are non-widened. IMPRESSION: Fractures involving the left hemipelvis with involvement of the pubic body and superior and inferior pubic rami. No hip fractures are identified. Dictated by: Dictated on workstation # [id number]
[2023-02-19 08:44] LABS: CALCIUM 9.3 MG/DL (8.5-10.1)
[2023-02-19 08:48] LABS: CREATININE SERUM 0.69 MG/DL (0.60-1.30)
--- NOTE | 2023-02-19 08:58 | Diagnostic Imaging Report ---
PROCEDURE: CT head without contrast. TECHNIQUE: Multiple contiguous axial images were obtained through the brain without the use of intravenous contrast. Auto Exposure Controls were utilized during the CT exam to meet ALARA standards for radiation dose reduction. INDICATION: Head injury from a fall. FINDINGS: The ventricles are normal in size, shape and position. There are no masses or hemorrhages. There are no extra-axial fluid collections. IMPRESSION: Negative CT head. Dictated by: Dictated on workstation # [id number]
[2023-02-19] MEDS ORDERED: KETOROLAC 30 MG/ML VIAL IVP ONE (09:00)
--- NOTE | 2023-02-19 09:02 | Diagnostic Imaging Report ---
PROCEDURE: CT pelvis without contrast. TECHNIQUE: Multiple contiguous axial images were obtained through the pelvis without the use of intravenous contrast. Sagittal and coronal reformations were performed. Auto Exposure Controls were utilized during the CT exam to meet ALARA standards for radiation dose reduction. INDICATION: Left hip pain. COMPARISON: CT dated 11/30/2022 and radiographs from same day FINDINGS: There are acute mildly displaced fractures involving the left superior and inferior pubic rami. There is also acute fracture of the left sacral alar (image 25, series 2). SI joints are symmetric. Pubic symphysis is within normal limits. No other acute osseous deformity of the pelvis is seen. Bilateral femoroacetabular joint spaces are also maintained. Included portions of the bilateral proximal femurs are also intact. Urinary bladder is unopacified. No calculi are seen within urinary bladder. There is no loculated fluid collection, free fluid or free air. IMPRESSION: 1. Acute mildly displaced fractures of left superior and inferior pubic rami. 2. Acute fracture of the left sacral ala. This may be amenable to sacroplasty. Dictated by: Dictated on workstation # [id number]
--- NOTE | 2023-02-19 09:04 | Diagnostic Imaging Report ---
PROCEDURE: CT lumbar spine without contrast. TECHNIQUE: Multiple contiguous axial images were obtained through the lumbar spine without the use of intravenous contrast. Sagittal and coronal reformations were then performed. Auto Exposure Controls were utilized during the CT exam to meet ALARA standards for radiation dose reduction. INDICATION: Trauma. Fall. Back pain. COMPARISON: None. FINDINGS: There are 5 lumbar-type vertebral bodies for the purposes of this report. Mild right apex lumbar scoliosis. Vertebral body heights are preserved. No fractures. Minimal scattered degenerative endplate changes and facet arthropathy. No CT evidence of spinal canal stenosis. Acute appearing partially visualized displaced fractures of the left sacral ala S1 and S2 segments. IMPRESSION: 1. No acute CT findings in the lumbar spine. 2. Partially visualized acute appearing displaced fractures of the left sacral ala at the S1 and S2 levels. Please see today's dedicated CT of the pelvis for further description. Dictated by: Dictated on workstation # [id number]
[2023-02-19 09:06] LABS: BAND NEUTROPHILS 6 %; NEUTROPHILS % (MANUAL) 78 %
[2023-02-19 09:07] LABS: EOSINOPHILS % (MANUAL) 1 %; LYMPHOCYTES % (MANUAL) 11 %; MONOCYTES % (MANUAL) 4 %; RBC MORPH NORMAL
[2023-02-19] MEDS ORDERED: ACETAMINOPHEN 325 MG TABLET PO PRN (10:30)
[2023-02-19] MEDS ORDERED: polyethylene glycoL POWDER 17 GM (MIRALAX) PACK PO PRN (10:30)
[2023-02-19] MEDS ORDERED: CALCIUM CARBONATE 500 MG (TUMS) TAB.CHEW PO PRN (10:30)
[2023-02-19] MEDS ORDERED: MELATONIN 3 MG TABLET PO PRN (10:30)
[2023-02-19] MEDS ORDERED: CETI10TA49 PO (11:02)
[2023-02-19] MEDS ORDERED: BACI1CAP6 PO (11:03)
[2023-02-19] MEDS ORDERED: ACET-2267 PO (11:03)
[2023-02-19] MEDS ORDERED: AMOX500T2 PO (11:04)
[2023-02-19] MEDS: morphine INJ 10 MG/ML 1ML (SYR OR VIAL) IVP PRN ×3 (11:24→23:21)
--- NOTE | 2023-02-19 11:33 | Physical Therapy Evaluation ---
PT Evaluation-General Medical Diagnosis Admission Date February 19, 2023 at 10:07 Medical Diagnosis: pelvic fracture Onset Date: February 19, 2023 Therapy Diagnosis Therapy Diagnosis: debility Height/Weight Height (Feet): 5 Height (Inches): 11.00 Weight (Pounds): 135 Precautions Precautions/Isolations: Standard Precautions Weight Bear Status Right Lower Extremity: Right Full Weight Bearing Left Lower Extremity: Left Weight Bearing/Tolerated Referral Physician: Trace Reason for Referral: Evaluation/Treatment Medical History Pertinent Medical History: GERD Additional Medical History scoliosis Current History ER secondary to tripped and fell outside Reviewed History: Yes Social History Home: Single Level Current Living Status: Spouse Entry Into Home: Level Entry Prior Prior Level of Function SCALE: Activities may be completed with or without assistive devices. 8-Iqmcyyrkbs-jzokhdj completes the activity by him/herself with no assistance from a helper. 5-Set-up or Clean-up Assistance-helper sets up or cleans up; patient completes activity. [place] assists only prior to or following the activity. 4-Supervision or Touching Assistance-helper provides verbal cues and/or touching/steadying and/or contact guard assistance as patient completes activity. Assistance may be provided throughout the activity or intermittently. 3-Partial/Moderate Assistance-helper does LESS THAN HALF the effort. [place] lifts, holds or supports trunk or limbs, but provides less than half the effort. 2-Substantial/Maximal Assistance-helper does MORE THAN HALF the effort. [place] lifts or holds trunk or limbs and provides more than half the effort. 8-Jrdencwnz-crvjxu does ALL the effort. Patient does none of the effort to complete the activity. Or, the assistance of 2 or more helpers is required for the patient to complete the activity. If activity was not attempted, code reason: 7-Patient Refused. 9-Not Applicable-not attempted and the patient did not perform the activity before the current illness, exacerbation or injury. 10-Not Attempted due to Environmental Limitations-(lack of equipment, weather restraints, etc.). 88-Not Attempted due to Medical Conditions or Safety Concerns. Bed Mobility: 6 Transfers (B,C,W/C): 6 Gait: 6 Indoor Mobility (Ambulation): Independent Prior Devices Use: None PT Evaluation-Current Subjective Patient agrees to PT. Pain Numeric Pain Scale: 8 Location: Left Location Body Site: Pelvic Pain Description: Acute Comment: meds issued Objective Patient Orientation: Normal For Age ROM/Strength ROM Lower Extremities left LE limited due to pain/right LE WFL Strength Lower Extremities left LE 3/5 grossly/right LE 5/5 grossly all planes Integumentary/Posture Bowel Incontinence: No Bladder Incontinence: No Posture WFL Neuromuscular (Tone, Coordination, Reflexes) grossly intact Sensory Vision: Functional Hearing: Functional Transfers Lying to Sitting/Side of Bed(Q: 4 Sit to Stand (QC): 4 Chair/Iug-zt-Ckhzw Xfer(QC): 4 SBA with all mobility Gait Mode of Locomotion: Walk Anticipated Mode of Locomotion: Walk Walk 10 feet (QC): 4 Walk 50 ft with 2 Turns(QC): 4 Walk 150 ft (QC): 88 Distance: 100' Gait Assistive Device: FWW Comments/Gait Description slow, antalgic, step to gait sequence Balance Sitting Static: Normal Sitting Dynamic: Normal Standing Static: Normal Standing Dynamic: Normal Assessment/Needs Patient will benefit from skilled PT to address functional strength and mobility to improve current LOF to safely return to home at maximum LOF. Rehab Potential: Fair PT Freight Team Associate Goals Freight Team Associate Goals PT Freight Team Associate Goals Time Frame: March 03, 2023 Roll Left & Right (QC): 6 Sit to Lying (QC): 6 Lying-Sitting on Side/Bed(QC): 6 Sit to Stand (QC): 6 Chair/Pvw-vu-Uriaf Xfer(QC): 6 Toilet Transfer (QC): 6 Walk 10 feet (QC): 6 Walk 50ft with 2 Turns (QC): 6 Walk 150 ft (QC): 6 PT Plan Problem List Problem List: Activity Tolerance, Functional Strength, Gait, Transfer, Bed Mobility Treatment/Plan Treatment Plan: Continue Plan of Care Treatment Plan: Bed Mobility, Education, Functional Activity Daxa, Functional Strength, Gait, Safety, Therapeutic Exercise, Transfers Treatment Duration: March 03, 2023 Frequency: 11 times per week Estimated Hrs Per Day: .5 hour per day Patient and/or Family Agrees t: Yes Time Time In: 1108 Time Out: 1125 DATE: February 19, 2023 Total Billed Treatment Time: 17 Total Billed Treatment 1 visit EVModC 17 min LEO RICH PT February 19, 2023 11:33
[2023-02-19 11:48] VITALS: BP 108/72
[2023-02-19] MEDS: HYDROcodone/APAP 5 MG/325 MG (LORTAB) TAB PO PRN ×3 (12:32→23:21)
--- NOTE | 2023-02-19 14:17 | History & Physical-Hospitalist ---
History of Present Illness HPI/Chief Complaint Pt is a 62yoCF who presented to the ER after a fall. She was out feeding her chickens and was moving some things when she tripped on another object in the garden and fell. She was unable to get up without assistance and so was brought to the ER for evaluation. She was found to have fractures of the pelvis and pain was unable to be controlled in the ER so she was admitted for pain control and PT/OT. She reports doing ok as long as she doesn't move. She has alerady worked with PT before my arrival and states that it was pretty painful. Source: patient Date Seen 02/19/23 Time Seen by a Provider: 13:15 Attending Physician [facility] PCP Admitting Physician: Hyun Jacobsen MD Attending Physician: Hyun Jacobsen MD Referring Physician Date of Admission February 19, 2023 at 10:07 Home Medications & Allergies Home Medications Reviewed patient Home Medication Reconciliation performed by pharmacy medication reconciliations plant technician and/or nursing. Patients Allergies have been reviewed. Allergies Allergies Coded Allergies clindamycin (Unverified Allergy, Intermediate, 11/30/22) "CHEST PAIN AND PRESSURE" Past Ulllhrz-Wswmmu-Xduufi Hx Patient Social History Marrital Status: Tobacco Use?: No Smoking Status: Former Smoker Use of E-Cig and/or Vaping dev: No Substance use?: No Alcohol Use?: No Alcohol Frequency: Rarely Pt feels they are or have been: No Immunizations Up To Date Tetanus Booster (TDap): More Than 5 Years Hepatitis A: No Hepatitis B: No Seasonal Allergies Seasonal Allergies: Yes Current Status status: No status: No Advance Directives: Yes Advance Directive Location: Copy from prev record Communicates: Verbally Primary Language: Montenegrin Preferred Spoken Language: Montenegrin Additional sensory deficits: NONE Implanted or Applied Medical D: None 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 oz. 61.940311pg; 14.98 BMI Method:Stated General Appearance: No Apparent Distress, WD/WN, Thin Respiratory: Lungs Clear, No Respiratory Distress Cardiovascular: Regular Rate, Rhythm, No Murmur Extremity: No Calf Tenderness, No Pedal Edema, Other (moves legs but very slowing and deliberately) Neurologic/Psychiatric: Alert, Oriented x3, Normal Mood/Affect Skin: Normal Color, Warm/Dry Results Results/Procedures Labs Laboratory Tests 02/19/23 08:25 Patient resulted labs reviewed. Imaging: Reviewed Imaging Report [facility] [place] [place] NAME: DWAYNE NIETO [facility] REC#: [id number] PT STATUS: REG ER : 1960 PHYSICIAN: RUTH RENDON MD ADMIT DATE: 02/19/23/ER Signed Date of Exam:02/19/23 CT HEAD WO PROCEDURE: CT head without contrast. TECHNIQUE: Multiple contiguous axial images were obtained through the brain without the use of intravenous contrast. Auto Exposure Controls were utilized during the CT exam to meet ALARA standards for radiation dose reduction. INDICATION: Head injury from a fall. FINDINGS: The ventricles are normal in size, shape and position. There are no masses or hemorrhages. There are no extra-axial fluid collections. IMPRESSION: Negative CT head. Dictated by: Dictated on workstation # [id number] Dict: 02/19/23 0855 Trans: 02/19/23920 [id number] Interpreted by: AYAN ALVAREZ MD Electronically signed by: AYAN ALVAREZ MD 02/19/23920 [facility] [place] [place] NAME: DWAYNE NIETO [facility] REC#: [id number] PT STATUS: REG ER : 1960 PHYSICIAN: RUTH RENDON MD ADMIT DATE: 02/19/23/ER Draft Date of Exam:02/19/23 PELVIS WITH LEFT HIP 2-3 VIEWS INDICATION: Left hip pain, fall. TIME OF EXAM: 8:42 AM. FINDINGS: There is a comminuted fracture involving the left pubic body with involvement of the superior and inferior pubic rami. Right-sided pubic body and rami appear to be intact. Both hips show normal femoroacetabular alignment. The femoral heads and necks appear to be intact. The SI joints and symphysis are non-widened. IMPRESSION: Fractures involving the left hemipelvis with involvement of the pubic body and superior and inferior pubic rami. No hip fractures are identified. Dictated on workstation # [id number] Dict: 02/19/2339 Trans: 02/19/23 0843 [id number] Interpreted by: MIRELLA ANNA MD Electronically signed by: [facility] [place] [place] NAME: DWAYNE NIETO [employer] REC#: [id number] PT STATUS: REG ER : 1960 PHYSICIAN: RUTH RENDON MD ADMIT DATE: 02/19/23/ER Draft Date of Exam:02/19/23 CT LUMBAR SPINE WO PROCEDURE: CT lumbar spine without contrast. TECHNIQUE: Multiple contiguous axial images were obtained through the lumbar spine without the use of intravenous contrast. Sagittal and coronal reformations were then performed. Auto Exposure Controls were utilized during the CT exam to meet ALARA standards for radiation dose reduction. INDICATION: Trauma. Fall. Back pain. COMPARISON: None. FINDINGS: There are 5 lumbar-type vertebral bodies for the purposes of this report. Mild right apex lumbar scoliosis. Vertebral body heights are preserved. No fractures. Minimal scattered degenerative endplate changes and facet arthropathy. No CT evidence of spinal canal stenosis. Acute appearing partially visualized displaced fractures of the left sacral ala S1 and S2 segments. IMPRESSION: 1. No acute CT findings in the lumbar spine. 2. Partially visualized acute appearing displaced fractures of the left sacral ala at the S1 and S2 levels. Please see today's dedicated CT of the pelvis for further description. Dictated on workstation # [id number] Dict: 02/19/23 0856 Trans: 02/19/23 0904 [facility] [id number] Interpreted by: ZAC SON MD Electronically signed by: [facility] [place] NAME: DWAYNE NIETO [facility] REC#: [id number] PT STATUS: REG ER : 1960 PHYSICIAN: RUTH RENDON MD ADMIT DATE: 02/19/23/ER Signed Date of Exam:02/19/23 CT PELVIS WO PROCEDURE: CT pelvis without contrast. TECHNIQUE: Multiple contiguous axial images were obtained through the pelvis without the use of intravenous contrast. Sagittal and coronal reformations were performed. Auto Exposure Controls were utilized during the CT exam to meet ALARA standards for radiation dose reduction. INDICATION: Left hip pain. COMPARISON: CT dated 11/30/2022 and radiographs from same day FINDINGS: There are acute mildly displaced fractures involving the left superior and inferior pubic rami. There is also acute fracture of the left sacral alar (image 25, series 2). SI joints are symmetric. Pubic symphysis is within normal limits. No other acute osseous deformity of the pelvis is seen. Bilateral femoroacetabular joint spaces are also maintained. Included portions of the bilateral proximal femurs are also intact. Urinary bladder is unopacified. No calculi are seen within urinary bladder. There is no loculated fluid collection, free fluid or free air. IMPRESSION: 1. Acute mildly displaced fractures of left superior and inferior pubic rami. 2. Acute fracture of the left sacral ala. This may be amenable to sacroplasty. Dictated by: Dictated on workstation # [id number] Dict: 02/19/23 0856 Trans: 02/19/23 09 [facility] [id number] Interpreted by: RC BRANDT MD Electronically signed by: RC BRANDT MD 02/19/23 0905 Assessment/Plan Admission Diagnosis Pelvic fractures Admission Status: Observation Assessment and Plan Pelvic fractures Multiple noted on imaging Ortho contacted by ER and recommended conservative management with PT and pain management Continue pain regimen Continue bowel regimen PT/OT IRF eval DVT ppx: Lovenox Diagnosis/Problems Diagnosis/Problems (1) Pelvis fracture (2) Multiple pelvic fractures Status: Acute Qualifiers: Encounter type: initial encounter Fracture type: closed Fracture alignment: with stable disruption of pelvic ring Qualified Codes: S32.810A - Multiple fractures of pelvis with stable disruption of pelvic ring, initial encounter for closed fracture HYUN JACOBSEN MD February 19, 2023 14:17
[2023-02-19] MEDS: ONDANSETRON 4 MG/2 ML (SDV) Z0FRAN IV PRN (14:50)
--- NOTE | 2023-02-19 15:19 | Occupational Therapy Eval ---
OT Evaluation-General/PLF Medical Diagnosis Admission Date February 19, 2023 at 10:07 Medical Diagnosis: pelvic fracture Onset Date: February 19, 2023 Therapy Diagnosis Therapy Diagnosis: weakness/pain Height/Weight Height (Feet): 5 Height (Inches): 11.00 Weight (Pounds): 135 Precautions Precautions/Isolations: Standard Precautions Weight Bear Status Weight Bearing Restriction: Weight Bearing/Tolerated Referral Physician: Trace Referral Reason: Self Care, Evaluation/Treatment, Strengthening/ROM Medical History Pertinent Medical History: GERD Social History Home: Single Level Current Living Status: Spouse Entry Into Home: Level Entry ADL-Prior Level of Function SCALE: Activities may be completed with or without assistive devices. 8-Hkdkvxuwin-wdbcemw completes the activity by him/herself with no assistance from a helper. 5-Set-up or Clean-up Assistance-helper sets up or cleans up; patient completes activity. [place] assists only prior to or following the activity. 4-Supervision or Touching Assistance-helper provides verbal cues and/or touching/steadying and/or contact guard assistance as patient completes activity. Assistance may be provided throughout the activity or intermittently. 3-Partial/Moderate Assistance-helper does LESS THAN HALF the effort. [place] lifts, holds or supports trunk or limbs, but provides less than half the effort. 2-Substantial/Maximal Assistance-helper does MORE THAN HALF the effort. [place] lifts or holds trunk or limbs and provides more than half the effort. 6-Ltgpbfajk-cnhhmu does ALL the effort. Patient does none of the effort to complete the activity. Or, the assistance of 2 or more helpers is required for the patient to complete the activity. If activity was not attempted, code reason: 7-Patient Refused. 9-Not Applicable-not attempted and the patient did not perform the activity before the current illness, exacerbation or injury. 10-Not Attempted due to Environmental Limitations-(lack of equipment, weather restraints, etc.). 88-Not Attempted due to Medical Conditions or Safety Concerns. Self Care: Independent Functional Cognition: Independent Drive Self: Yes OT Current Status Subjective Up in recliner w/ LE elevated and visitors present Mental Status/Objective Patient Orientation: Person, Place, Time, Situation Current Upper Extremity ROM BUE ROM WFLS Upper Extremity Strength -4/5 grossly, patient reports muscle atrophy over last 2 months ADL-Treatment Eating (QC): 6 Oral Hygiene (QC): 5 Shower/Bathe Self (QC): 7 Upper Body Dressing (QC): 5 Lower Body Dressing (QC): 4 On/Off Footwear (QC): 5 Toileting Hygiene (QC): 5 Education OT Patient Education: Correct positioning, Exercise program, Home exercise program, Modified ADL techniques, Progress toward Goal/Update tx plan, Purpose of tx/functional activities, Reviewed precautions, Rehab process, Safety issues, Transfer techniques, Use of adapted equipment Teaching Recipient: Patient Teaching Methods: Demonstration, Discussion Response to Teaching: Reinforcement Needed OT Jail Goals Jail Goals Eating (QC): 6 Oral Hygiene (QC): 6 Toileting Hygiene (QC): 6 Shower/Bathe Self (QC): 5 Upper Body Dressing (QC): 6 Lower Body Dressing (QC): 6 On/Off Footwear (QC): 6 1=Demonstrate adherence to instructed precautions during ADL tasks. 2=Patient will verbalize/demonstrate understanding of assistive devices/modifications for ADL. 3=Patient will improve strength/tolerance for activity to enable patient to perform ADL's. OT Education/Plan Problem List/Assessment Assessment: Decreased Activ Tolerance, Decreased UE Strength, Impaired Self- Care Skills Discharge Recommendations Plan/Recommendations: Continue POC Treatment Plan/Plan of Care Treatment,Training & Education: Yes Patient would benefit from OT for education, treatment and training to promote independence in ADL's, mobility, safety and/or upper extremity function for ADL's. Plan of Care: ADL Retraining, Functional Mobility, Group Exercise/Act as Ind, UE Funct Exercise/Act Treatment Duration: February 24, 2023 Frequency: 3 times per week (3-5 times per week) Estimated Hrs Per Day: .25 hour per day Agreement: Yes Rehab Potential: Good Up in recliner w/ LE down, all needs met Time Start Time: 14:30 Stop Time: 14:55 DATE: February 19, 2023 Total Time Billed (hr/min): 25 Billed Treatment Time EVM, ADL 25 min BARRERA FRANCOIS OT February 19, 2023 15:19
[2023-02-19 16:25] VITALS: BP 95/51
[2023-02-19] MEDS: ENOXAPARIN INJECTION 30 MG/0.3 ML SYR SQ SCH (16:42)
[2023-02-19] MEDS: AMOXICILLIN 500 MG PO SCH (17:44)
[2023-02-19] MEDS: DOCUSATE SODIUM 100 MG (COLACE) CAP PO SCH (19:51)
[2023-02-19 20:17] VITALS: BP 115/55
[2023-02-19] MEDS ORDERED: PATIENT MAY USE OWN MED,SINGLE MED PO SCH (21:00)
[2023-02-19 23:16] VITALS: BP 113/57
[2023-02-20 04:33] VITALS: BP 110/55
[2023-02-20] MEDS: HYDROcodone/APAP 5 MG/325 MG (LORTAB) TAB PO PRN (04:48)
[2023-02-20 05:19] LABS: HEMATOCRIT 37 % (35-52); HEMOGLOBIN 11.9 g/dL (11.5-16.0); MEAN CORPUSCULAR HEMOGLOBIN 29 pg (25-34); MEAN CORPUSCULAR HGB CONC 32 g/dL (32-36); MEAN CORPUSCULAR VOLUME 90 fL (80-99); MEAN PLATELET VOLUME 8.7 fL (9.0-12.2); PLATELET COUNT 336 10^3/uL (130-400); WHITE BLOOD COUNT 9.6 10^3/uL (4.3-11.0)
[2023-02-20 05:40] LABS: POTASSIUM 4.3 MMOL/L (3.6-5.0)
[2023-02-20 05:41] LABS: CALCIUM 8.3 MG/DL (8.5-10.1)
[2023-02-20 05:46] LABS: CREATININE SERUM 0.7 MG/DL (0.60-1.30)
[2023-02-20] MEDS: morphine INJ 10 MG/ML 1ML (SYR OR VIAL) IVP PRN (06:37)
[2023-02-20 07:11] VITALS: BP 103/52
[2023-02-20] MEDS: LORATADINE (CLARITIN) 10 MG TAB PO SCH (08:20)
[2023-02-20] MEDS: DOCUSATE SODIUM 100 MG (COLACE) CAP PO SCH ×2 (08:20→21:19)
[2023-02-20] MEDS: ONDANSETRON 4 MG/2 ML (SDV) Z0FRAN IV PRN ×2 (08:21→15:05)
[2023-02-20] MEDS: LACTOBACILLUS ACIDOPHILUS (PROBIOTIC) CAPSULE PO SCH (08:21)
[2023-02-20] MEDS: AMOXICILLIN 500 MG PO SCH ×3 (08:21→21:20)
[2023-02-20] MEDS ORDERED: BACILLUS COAGULANS PO SCH (09:00)
[2023-02-20] MEDS ORDERED: NON-FORMULARY MEDICATION 1 EA EA (Cetirizine HCl (Zyrtec) 10 MG) PO SCH (09:00)
--- NOTE | 2023-02-20 10:50 | Physical Therapy Daily Note ---
PT Daily Note-Current Subjective Patient agrees to PT. Reports nausea due to medication Pain Numeric Pain Scale: 8 Location: Left Location Body Site: Pelvic Pain Description: Acute Section J - Health Conditions 1. Rarely or not at all 2. Occasionally 3. Frequently 4. Almost constantly 8. Unable to answer Pain Effect on Sleep: 2 Pain Interference with Therapy: 2 Pain Interference w/Day-to-Day: 2 Mental Status Patient Orientation: Normal For Age Transfers SCALE: Activities may be completed with or without assistive devices. 2-Cuymbihaxy-rbidzgm completes the activity by him/herself with no assistance from a helper. 5-Set-up or Clean-up Assistance-helper sets up or cleans up; patient completes activity. [place] assists only prior to or following the activity. 4-Supervision or Touching Assistance-helper provides verbal cues and/or touching/steadying and/or contact guard assistance as patient completes activity. Assistance may be provided throughout the activity or intermittently. 3-Partial/Moderate Assistance-helper does LESS THAN HALF the effort. [place] lifts, holds or supports trunk or limbs, but provides less than half the effort. 2-Substantial/Maximal Assistance-helper does MORE THAN HALF the effort. [place] lifts or holds trunk or limbs and provides more than half the effort. 0-Ajsnqwrcz-mrnfwr does ALL the effort. Patient does none of the effort to complete the activity. Or, the assistance of 2 or more helpers is required for the patient to complete the activity. If activity was not attempted, code reason: 7-Patient Refused. 9-Not Applicable-not attempted and the patient did not perform the activity before the current illness, exacerbation or injury. 10-Not Attempted due to Environmental Limitations-(lack of equipment, weather restraints, etc.). 88-Not Attempted due to Medical Conditions or Safety Concerns. Sit to Stand (QC): 5 Weight Bearing Right Lower Extremity: Right Full Weight Bearing Left Lower Extremity: Left Weight Bearing/Tolerated Gait Training Distance: 180' Walk 10 feet (QC): 5 Walk 50 ft with 2 Turns(QC): 5 Walk 150 ft (QC): 5 Gait Assistive Device: FWW very slow and antalgic Assessment This PT instructed patient and spouse on performing ambulation PRN in hallway to increase activity tolerance. RN notified. PT Architecture Department Chair Goals Architecture Department Chair Goals PT Correction Goals Time Frame: March 03, 2023 Roll Left & Right (QC): 6 Sit to Lying (QC): 6 Lying-Sitting on Side/Bed(QC): 6 Sit to Stand (QC): 6 Chair/Grn-bc-Zvnuf Xfer(QC): 6 Toilet Transfer (QC): 6 Walk 10 feet (QC): 6 Walk 50ft with 2 Turns (QC): 6 Walk 150 ft (QC): 6 PT Plan Treatment/Plan Treatment Plan: Continue Plan of Care Treatment Plan: Bed Mobility, Education, Functional Activity Daxa, Functional Strength, Gait, Safety, Therapeutic Exercise, Transfers Treatment Duration: March 03, 2023 Frequency: 11 times per week Estimated Hrs Per Day: .5 hour per day Patient and/or Family Agrees t: Yes Time Time In: 930 Time Out: 942 DATE: February 20, 2023 Total Billed Treatment Time: 12 Total Billed Treatment 1 visit GT 12 min LEO RICH PT February 20, 2023 10:49
[2023-02-20] MEDS ORDERED: SCOPOLAMINE 1.5 MG (TRANSDERM-SCOP) PATCH TD NR (11:00)
[2023-02-20 11:04] VITALS: BP 111/57
--- NOTE | 2023-02-20 11:08 | D/C HH Face to Face Order ---
D/C Face to Face Orders Instructions for Patient Via [facility], Patient Instructions/FollowUp: Please continue to take your medications as written. Please follow up with your primary care doctor to follow up this hospital stay. Physician to follow Patient: Mlson Wright Discharge Diet for Home: No Restrictions Patient Data-Allergies,Ht & Wt Patient Allergies: Coded Allergies: clindamycin (Unverified Allergy, Intermediate, 11/30/22) "CHEST PAIN AND PRESSURE" Height (Feet): 5 Height (Inches): 11.00 Weight (Pounds): 135 Home Health Need/Face to Face Date of Face to Face: February 20, 2023 Clinical Findings: Pain with ambulation I have seen Pt ycdk-yq-zcby: Yes Discharged To: Home Diagnosis/Conditions: Pelvic Fracture Patient is Homebound due to: Pain w/ambulation Homebound Status Due to the above stated illness, injury or surgical procedure (medical co ndition or diagnosis) and associated clinical findings, the patient is homebound because of his/her inability to leave home except with aid of a supportive device and/or person AND leaving the home requires a considerable and taxing effort or is medically contraindicated. Pt req the following assistanc: Aid of another person, Walker Home Health Nursing Orders Home Health Services Order: Boring Inspector-Evaluate & Treat, Physical Therapy-Evaluate & Treat Home Health Infusion Therapy Line Start Date: February 19, 2023 Therapy Orders Therapy Orders: OT (must have SN or PT order), Physical Therapy Therapy Specific Orders: Eval assistive deivces, Teach enviro modifications/safety, Gait training, Increase strength/endurance Certify Stmt I certify that this patient is under my care and that I, a nurse practitioner or a physician; a language assistant working with me, had a face to face encounter that - meets the physician face to face encounter requirements with this patient as dated. HYUN JACBOSEN MD February 20, 2023 11:08
--- NOTE | 2023-02-20 12:01 | Progress Note - Hospitalist ---
Subjective HPI/CC On Admission Date Seen by Provider: February 20, 2023 Pt is a 62yoCF who presented to the ER after a fall. She was out feeding her chickens and was moving some things when she tripped on another object in the garden and fell. She was unable to get up without assistance and so was brought to the ER for evaluation. She was found to have fractures of the pelvis and pain was unable to be controlled in the ER so she was admitted for pain control and PT/OT. She reports doing ok as long as she doesn't move. She has alejohnathany worked with PT before my arrival and states that it was pretty painful. Subjective/Events-last exam Pt reports doing ok today. No new complaints. Pain present but controlled and up walking with ehr and with PT. Needed morphine a few times overnight though. Objective Exam Vital Signs Vital Signs Date Time Temp Pulse Resp B/P (MAP) Pulse Ox O2 Delivery O2 Flow Rate FiO2 02/20/23 11:04 36.2 66 18 111/57 (75) 98 Room Air Capillary Refill : Less Than 3 Seconds General Appearance: No Apparent Distress, Thin Respiratory: No Accessory Muscle Use Neurologic/Psychiatric: Alert, Oriented x3, Other (slow, antalgic gait) Results/Procedures Lab Laboratory Tests 02/20/23 05:05 Patient resulted labs reviewed. Imaging: Reviewed Imaging Report Assessment/Plan Assessment and Plan Assess & Plan/Chief Complaint Pelvic fractures Multiple noted on imaging Ortho contacted by ER and recommended conservative management with PT and pain management Continue pain regimen Continue bowel regimen PT/OT IRF eval- denied Hopefully home with home health tomorrow if pain controlled DVT ppx: Lovenox Diagnosis/Problems Diagnosis/Problems (1) Pelvis fracture (2) Multiple pelvic fractures Status: Acute Qualifiers: Encounter type: initial encounter Fracture type: closed Fracture alignment: with stable disruption of pelvic ring Qualified Codes: S32.810A - Multiple fractures of pelvis with stable disruption of pelvic ring, initial encounter for closed fracture HYUN JACOBSEN MD February 20, 2023 12:01
--- NOTE | 2023-02-20 14:52 | Occupational Ther Daily Note ---
OT Current Status-Daily Note Subjective Up in recliner, eating TACO MOULTON Mental Status/Objective Patient Orientation: Situation ADL-Treatment Therapy Code Descriptions/Definitions Functional Drew Measure: 0=Not Assessed/NA 4=Minimal Assistance 1=Total Assistance 5=Supervision or Setup 2=Maximal Assistance 6=Modified Drew 3=Moderate Assistance 7=Complete IndependenceSCALE: Activities may be completed with or without assistive devices. 4-Gmkuwakesz-whwvtfl completes the activity by him/herself with no assistance from a helper. 5-Set-up or Clean-up Assistance-helper sets up or cleans up; patient completes activity. Kelso assists only prior to or following the activity. 4-Supervision or Touching Assistance-helper provides verbal cues and/or touching/steadying and/or contact guard assistance as patient completes act ivity. Assistance may be provided throughout the activity or intermittently. 3-Partial/Moderate Assistance-helper does LESS THAN HALF the effort. Kelso lifts, holds or supports trunk or limbs, but provides less than half the effort. 2-Substantial/Maximal Assistance-helper does MORE THAN HALF the effort. Kelso lifts or holds trunk or limbs and provides more than half the effort. 2-Vtmrbndmt-wiwijl does ALL the effort. Patient does none of the effort to complete the activity. Or, the assistance of 2 or more helpers is required for the patient to complete the activity. If activity was not attempted, code reason: 7-Patient Refused. 9-Not Applicable-not attempted and the patient did not perform the activity before the current illness, exacerbation or injury. 10-Not Attempted due to Environmental Limitations-(lack of equipment, weather restraints, etc.). 88-Not Attempted due to Medical Conditions or Safety Concerns. Other Treatment Education for offloading, weight shifting and positional changes, demonstration of LB dressing sequences for pain reduction Education OT Patient Education: Correct positioning, Modified ADL techniques, Purpose of tx/functional activities, Reviewed precautions, Safety issues, Transfer techniques Teaching Recipient: Patient, Significant Other Teaching Methods: Demonstration, Discussion Response to Teaching: Verbalize Understanding OT Cloth Shearer Goals Cloth Shearer Goals Eating (QC): 6 Oral Hygiene (QC): 6 Toileting Hygiene (QC): 6 Shower/Bathe Self (QC): 5 Upper Body Dressing (QC): 6 Lower Body Dressing (QC): 6 On/Off Footwear (QC): 6 1=Demonstrate adherence to instructed precautions during ADL tasks. 2=Patient will verbalize/demonstrate understanding of assistive devices/modifications for ADL. 3=Patient will improve strength/tolerance for activity to enable patient to perform ADL's. OT Education/Plan Problem List/Assessment Assessment: Impaired Self-Care Skills Discharge Recommendations Plan/Recommendations: Continue POC Treatment Plan/Plan of Care Patient would benefit from OT for education, treatment and training to promote independence in ADL's, mobility, safety and/or upper extremity function for ADL's. Plan of Care: ADL Retraining, Functional Mobility, Group Exercise/Act as Ind, UE Funct Exercise/Act Treatment Duration: February 24, 2023 Frequency: 3 times per week (3-5 times per week) Estimated Hrs Per Day: .25 hour per day Agreement: Yes Rehab Potential: Good Time Start Time: 14:10 Stop Time: 14:23 DATE: February 20, 2023 Total Time Billed (hr/min): 13 Billed Treatment Time FA 13 min BARRERA FRANCOIS OT February 20, 2023 14:51
[2023-02-20] MEDS: ENOXAPARIN INJECTION 30 MG/0.3 ML SYR SQ SCH (15:05)
[2023-02-20 16:25] VITALS: BP 114/58
[2023-02-20 19:58] VITALS: BP 101/56
[2023-02-20 23:47] VITALS: BP 110/54
[2023-02-21] MEDS: morphine INJ 10 MG/ML 1ML (SYR OR VIAL) IVP PRN ×2 (00:28→08:11)
[2023-02-21 04:00] VITALS: BP 99/48
[2023-02-21 07:54] VITALS: BP 104/52
[2023-02-21] MEDS: AMOXICILLIN 500 MG PO SCH ×2 (07:55→13:06)
[2023-02-21] MEDS: DOCUSATE SODIUM 100 MG (COLACE) CAP PO SCH (07:55)
[2023-02-21] MEDS: LACTOBACILLUS ACIDOPHILUS (PROBIOTIC) CAPSULE PO SCH (07:55)
[2023-02-21] MEDS: LORATADINE (CLARITIN) 10 MG TAB PO SCH (07:55)
[2023-02-21] MEDS: ONDANSETRON 4 MG/2 ML (SDV) Z0FRAN IV PRN (08:15)
--- NOTE | 2023-02-21 10:08 | Discharge Summary ---
Diagnosis/Chief Complaint Date of Admission February 19, 2023 at 10:07 Date of Discharge Discharge Date: February 21, 2023 Admission Diagnosis Pelvic fractures Primary Care Rajani Wright Discharge Diagnosis (1) Pelvis fracture (2) Multiple pelvic fractures Status: Acute Discharge Summary Discharge Physical Exam Allergies: Coded Allergies: clindamycin (Unverified Allergy, Intermediate, 11/30/22) "CHEST PAIN AND PRESSURE" Vitals & I&Os Vital Signs Date Time Temp Pulse Resp B/P (MAP) Pulse Ox O2 Delivery O2 Flow Rate FiO2 02/21/23 13:35 02/21/23 11:20 37.1 66 20 97 Room Air General Appearance: No Apparent Distress, Thin Respiratory: Lungs Clear, No Respiratory Distress Cardiovascular: Regular Rate, Rhythm, No Murmur Neurologic/Psychiatric: Alert, Oriented x3 Hospital Course Patient was admitted to the hospital secondary to pelvic fracture and intractable pain. She was treated with IV morphine and transition to oral hydrocodone with improvement in symptoms. She was seen by physical therapy and Occupational Therapy and did well. She was discharged home in stable improved condition with home health services. I called and spoke with her primary care nurse practitioner, Ml Wright, who will follow patient as an outpatient. A referral was placed to Dr. Locke with orthopedic surgery for outpatient management of her fractures. Labs (last 24 hrs) Patient resulted labs reviewed. Imaging: Reviewed Imaging Report Discussion & Recommendations Discharge Planning: >30 minutes discharge planning Discharge Home Medications: Active Scripts Active Ondansetron Odt (Ondansetron) 4 Mg Tab.rapdis 4 Mg SL Q4H PRN Transderm-Scop (Scopolamine) 1 Mg/3 Day Patch.td72 1 Each TD Q72H HYDROcodone/APAP 10/325 TABLET (Acetaminophen/Hydrocodone Bitart) 1 Ea Tab 1 Ea PO Q4H PRN Reported Amoxicillin 500 Mg Tablet 500 Mg PO TID FILLED 02-12-2023 #21/7 DAY SUPPLY Tylenol Extra Strength (Acetaminophen) 500 Mg Tablet 1,000 Mg PO Q8H PRN TAKES 2 (500MG) TABS Probiotic (Bacillus Coagulans) 10 Billion Cell Capsule.dr 1 Each PO DAILY Zyrtec (Cetirizine HCl) 10 Mg Tablet 10 Mg PO DAILY Instructions to patient/family Please see electronic discharge instructions given to patient. Problem Qualifiers (1) Multiple pelvic fractures: Encounter type: initial encounter Fracture type: closed Fracture alignment: with stable disruption of pelvic ring Qualified Codes: S32.810A - Multiple fractures of pelvis with stable disruption of pelvic ring, initial encounter for closed fracture HYUN JACOBSEN MD February 21, 2023 10:08
[2023-02-21] MEDS ORDERED: ACHYD1T PO (10:21)
[2023-02-21] MEDS ORDERED: ONDA4TAB11 SL (10:21)
[2023-02-21] MEDS ORDERED: SCOP1PAT10 TD (10:21)
--- NOTE | 2023-02-21 11:04 | Physical Therapy Progress Note ---
Therapy Progress Note Attempted to see patient for PT treatment. She politely refused stating she will be D/C and going home soon. AARON GARCIA PT February 21, 2023 11:04
[2023-02-21 11:20] VITALS: BP 109/57
--- NOTE | 2023-02-21 14:21 | Diagnostic Imaging Report ---
INDICATION: Shoulder pain. EXAMINATION: Left shoulder, 02/21/2023. FINDINGS: Two views of the shoulder. There is narrowing and spurring at the acromioclavicular joint. There are no fractures or dislocations. Soft tissues are unremarkable. IMPRESSION: No acute process. Dictated by: Dictated on workstation # [id number]
[2023-02-23] MEDS ORDERED: SCOPOLAMINE PATCH REMOVAL TP ONE (11:00)
== END 2023-02-21 11:53 | disposition home or self-care (01) ==
LOC: EDUNIT# 07:51 → ER 07:53 → UNDOADMOB 10:07 → 4TH 10:07 → UNDODISOB 02-21 11:53
PROVIDERS: ADMIT Family Medicine; ATTEND Family Medicine
DX: S32.82XA Multiple fractures of pelvis without disruption of pelvic ring, initial encounter for closed fracture (principal); W01.0XXA Fall on same level from slipping, tripping and stumbling without subsequent striking against object, initial encounter; Z87.891 Personal history of nicotine dependence
CPT/HCPCS: 70450; 72131; 72192; 73030; 73502; 80048 ×2; 85007; 85027 ×2; 96372 ×2; 96376 ×3; 97116; 97162; 97166; 97530; 97535; 99284; G0378; 36415

== ENCOUNTER 2023-02-25 14:19 | Inpatient (IN) | payer BC ==
[~2023-02-25] VITALS: Ht 180 cm; Wt 49.6 kg
[~2023-02-25 14:19] MED LIST changes: +ACHYD1T PO; +AMOX500T2 PO; +BACI1CAP6 PO; +CETI10TA49 PO; +ONDA4TAB11 SL; +SCOP1PAT10 TD
--- NOTE | 2023-02-25 14:36 | ED Abdominal Pain ---
General Chief Complaint: Abdominal/GI Problems Stated Complaint: CONSTIPATION Source of Information: Patient Exam Limitations: No Limitations History of Present Illness Date Seen by Provider: February 25, 2023 Time Seen by Provider: 14:26 Initial Comments 62-year-old female presents emergency department today for diffuse abdominal pain, nausea and inability to have a bowel movement. She was admitted to our hospital for nonoperative pelvic fracture, pain management and discharged on 02/21. She received IV pain medications and p.o. pain medications during her hospital stay and was discharged on oral hydrocodone. She states since that time she has not had a bowel movement. Last bowel movement was Sunday though she did use a suppository yesterday and had a very small smear of stool. No bloody stool. She states her abdomen is diffusely distended and very tender. She is also nauseated today. She was admitted about a month ago with a bowel obstruction. All other systems reviewed and negative except documented per HPI. Voice recognition software was used to help create this chart Allergies and Home Medications Allergies Coded Allergies: clindamycin (Unverified Allergy, Intermediate, 11/30/22) "CHEST PAIN AND PRESSURE" Patient Home Medication List Home Medication List Reviewed: Yes Acetaminophen (Tylenol Extra Strength) 500 Mg Tablet, 1,000 MG PO Q8H PRN for PAIN-MILD (1-4), (Reported) Entered as Reported by: MJ HIRSCH on 02/19/23 1103 Amoxicillin (Amoxicillin) 500 Mg Tablet, 500 MG PO TID, (Reported) Entered as Reported by: MJ HIRSCH on 02/19/23 1104 Bacillus Coagulans (Probiotic) 10 Billion Cell Capsule.dr, 1 EACH PO DAILY, (Reported) Entered as Reported by: MJ HIRSCH on 02/19/23 1103 Cetirizine HCl (Zyrtec) 10 Mg Tablet, 10 MG PO DAILY, (Reported) Entered as Reported by: MJ HIRSCH on 02/19/23 1102 Hydrocodone Bit/Acetaminophen (HYDROcodone/APAP 10/325 TABLET) 1 Ea Tab, 1 EA PO Q4H PRN for PAIN-MODERATE (5-7) Prescribed by: HYUN JACOBSEN on 02/21/23 1022 Ondansetron (Ondansetron Odt) 4 Mg Tab.rapdis, 4 MG SL Q4H PRN for NAUSEA/VOMITING Prescribed by: HYUN JACOBSEN on 02/21/23 1021 Scopolamine (Transderm-Scop) 1 Mg/3 Day Patch.td72, 1 EACH TD Q72H Prescribed by: HYUN JACOBSEN on 02/21/23 1021 Review of Systems Review of Systems Constitutional: see HPI Past Mmelfob-Ulsdys-Kediyq Hx Patient Social History Tobacco Use?: No Use of E-Cig and/or Vaping dev: No Substance use?: No Alcohol Use?: No Pt feels they are or have been: No Seasonal Allergies Seasonal Allergies: Yes Past Medical History Surgery/Hospitalization HX: RT THYROID GOITER Surgeries: No Respiratory: No Cardiac: No Neurological: No 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 oz. 61.650472vd; 14.98 BMI Method:Stated General Appearance: WD/WN HEENT: normal ENT inspection, pharynx normal Neck: non-tender Respiratory: chest non-tender, lungs clear, normal breath sounds, no respirato ry distress Cardiovascular: regular rate, rhythm, no murmur Gastrointestinal: soft, no organomegaly, other (Mildly distended. Hypoactive bowel sounds. Diffuse abdominal tenderness with voluntary guarding. No rebound tenderness. No mass organomegaly.) Neurologic/Psychiatric: alert, oriented x 3 Skin: normal color, warm/dry Progress/Results/Core Measures Results/Orders Lab Results Laboratory Tests Test 02/25/23 14:38 Range/Units White Blood Count 10.2 4.3-11.0 10^3/uL Red Blood Count 4.90 3.80-5.11 10^6/uL Hemoglobin 14.0 11.5-16.0 g/dL Hematocrit 42 35-52 % Mean Corpuscular Volume 85 80-99 fL Mean Corpuscular Hemoglobin 29 25-34 pg Mean Corpuscular Hemoglobin Concent 34 32-36 g/dL Red Cell Distribution Width 13.1 10.0-14.5 % Platelet Count 465 H 130-400 10^3/uL Mean Platelet Volume 8.8 L 9.0-12.2 fL Immature Granulocyte % (Auto) 1 % Neutrophils (%) (Auto) 64 42-75 % Lymphocytes (%) (Auto) 22 12-44 % Monocytes (%) (Auto) 10 0-12 % Eosinophils (%) (Auto) 2 0-10 % Basophils (%) (Auto) 1 0-10 % Neutrophils # (Auto) 6.6 1.8-7.8 10^3/uL Lymphocytes # (Auto) 2.3 1.0-4.0 10^3/uL Monocytes # (Auto) 1.1 H 0.0-1.0 10^3/uL Eosinophils # (Auto) 0.2 0.0-0.3 10^3/uL Basophils # (Auto) 0.1 0.0-0.1 10^3/uL Immature Granulocyte # (Auto) 0.1 0.0-0.1 10^3/uL Sodium Level 135 135-145 MMOL/L Potassium Level 4.4 3.6-5.0 MMOL/L Chloride Level 95 L 98-107 MMOL/L Carbon Dioxide Level 24 21-32 MMOL/L Anion Gap 16 H 5-14 MMOL/L Blood Urea Nitrogen 19 H 7-18 MG/DL Creatinine 0.65 0.60-1.30 MG/DL Estimat Glomerular Filtration Rate 100 BUN/Creatinine Ratio 29 Glucose Level 90 70-105 MG/DL Calcium Level 9.1 8.5-10.1 MG/DL Corrected Calcium 9.7 8.5-10.1 MG/DL Total Bilirubin 1.4 H 0.1-1.0 MG/DL Aspartate Amino Transf (AST/SGOT) 21 5-34 U/L Alanine Aminotransferase (ALT/SGPT) 16 0-55 U/L Alkaline Phosphatase 77 40-136 U/L Total Protein 7.0 6.4-8.2 GM/DL Albumin 3.3 3.2-4.5 GM/DL My Orders Orders - LUISCARMINE DO Ct Abdomen/Pelvis W (02/25/23 14:32) Cbc With Automated Diff (02/25/23 14:32) Comprehensive Metabolic Panel (02/25/23 14:32) Fentanyl Inj (Sublimaze Injection) (02/25/23 14:45) Ondansetron Injection (Zofran Injectio (02/25/23 14:45) Iohexol Injection (Omnipaque 350 Mg/Ml 1 (02/25/23 15:00) Ns (Ivpb) (Sodium Chloride 0.9% Ivpb Bag (02/25/23 15:00) Ns Iv 500 Ml (Sodium Chloride 0.9%) (02/25/23 15:45) Medications Given in ED Current Medications Medications Dose Ordered Sig/Андрей Route Start Time Stop Time Status Last Admin Dose Admin Fentanyl Citrate 50 mcg ONCE ONCE IVP 02/25/23 14:45 02/25/23 14:46 DC 02/25/23 14:47 50 MCG Iohexol 100 ml ONCE ONCE IV 02/25/23 15:00 02/25/23 15:01 DC 02/25/23 15:16 49 ML Ondansetron HCl 8 mg ONCE ONCE IVP 02/25/23 14:45 02/25/23 14:46 DC 02/25/23 14:47 8 MG Sodium Chloride 100 ml ONCE ONCE IV 02/25/23 15:00 02/25/23 15:01 DC 02/25/23 15:16 80 ML Vital Signs/I&O 02/25/23 14:25 Temp 36.5 Pulse 95 Resp 20 B/P (MAP) 106/61 (76) Pulse Ox 98 O2 Delivery Room Air Departure Communication (Admissions) Patient is medically stable. Is significantly tender in mildly distended and she started nausea today. For CT scanning showed small bowel obstruction. Admitted for IV fluids, nausea control and bowel rest. 1545: Spoke to Dr Kumar. Will admit. I will write bridging orders. Impression Primary Impression: Small bowel obstruction Disposition: ADMITTED INPATIENT Condition: Stable Departure-Patient Inst. Referrals: [facility]ANGELICA (PCP) Primary Care Physician ZAC SUTHERLAND (Family) Primary Care Physician CARMINE SMITH DO February 25, 2023 14:36
[2023-02-25 14:44] LABS: BASOPHILS # (AUTO) 0.1 10^3/uL (0.0-0.1); BASOPHILS % (AUTO) 1 % (0-10); EOSINOPHILS # (AUTO) 0.2 10^3/uL (0.0-0.3); EOSINOPHILS % (AUTO) 2 % (0-10); HEMATOCRIT 42 % (35-52); LYMPHOCYTES # (AUTO) 2.3 10^3/uL (1.0-4.0); LYMPHOCYTES % (AUTO) 22 % (12-44); MEAN CORPUSCULAR HEMOGLOBIN 29 pg (25-34); MEAN CORPUSCULAR HGB CONC 34 g/dL (32-36); MEAN CORPUSCULAR VOLUME 85 fL (80-99); MEAN PLATELET VOLUME 8.8 fL (9.0-12.2); MONOCYTES # (AUTO) 1.1 10^3/uL (0.0-1.0); MONOCYTES % (AUTO) 10 % (0-12); NEUTROPHILS # (AUTO) 6.6 10^3/uL (1.8-7.8); NEUTROPHILS % (AUTO) 64 % (42-75); PLATELET COUNT 465 10^3/uL (130-400); WHITE BLOOD COUNT 10.2 10^3/uL (4.3-11.0)
[2023-02-25] MEDS ORDERED: ONDANSETRON 4 MG/2 ML (SDV) Z0FRAN IVP ONE (14:45)
[2023-02-25] MEDS ORDERED: fentaNYL INJ 100 MCG/2 ML AMP IVP ONE (14:45)
[2023-02-25 14:54] LABS: ALBUMIN 3.3 GM/DL (3.2-4.5)
[2023-02-25 14:55] LABS: POTASSIUM 4.4 MMOL/L (3.6-5.0)
[2023-02-25 14:56] LABS: CALCIUM 9.1 MG/DL (8.5-10.1)
[2023-02-25 14:59] LABS: BILIRUBIN,TOTAL 1.4 MG/DL (0.1-1.0)
[2023-02-25] MEDS ORDERED: IOHEXOL 350 MG/ML 100 ML (OMNIPAQUE 350) VIAL IV ONE (15:00)
[2023-02-25] MEDS ORDERED: NS 100 ML (IVPB) BAG IV ONE (15:00)
[2023-02-25 15:01] LABS: CREATININE SERUM 0.65 MG/DL (0.60-1.30)
--- NOTE | 2023-02-25 15:36 | Diagnostic Imaging Report ---
PROCEDURE: CT abdomen and pelvis with contrast. TECHNIQUE: Multiple contiguous axial images were obtained through the abdomen and pelvis after administration of intravenous contrast. Auto Exposure Controls were utilized during the CT exam to meet ALARA standards for radiation dose reduction. All CT scans use one or more of the following dose optimizing techniques: automated exposure control, MA and/or KvP adjustment based on patient size and exam type or iterative reconstruction. INDICATION: Diffuse abdominal pain, constipation. COMPARISON: Pelvic CT 02/19/[address] abdomen and pelvis 11/30/2022. FINDINGS: New from the more recent pelvic CT but appearing similar to the more remote CT abdomen and pelvis of 11/30/2022 we note dilated small bowel with scattered and differential air-fluid levels with a pelvic small bowel showing mucosal hyperemia and mucosal hyperenhancement with some inflammatory appearing thickening of the distal and terminal ileum. This may be infectious enteritis or reflect a recurrent active inflammatory bowel disease with resultant distal small bowel obstruction. There is trace pelvic free fluid there is no internal or external hernia. There is an elevated fecal load in the ascending and transverse colon. There is some stool in the proximal descending colon with the left colon showing gradual tapering in caliber and stool load with no abrupt transition. I do not feel there is a kaitlin large bowel obstruction and no convincing large bowel acute inflammation. No finding of a fistula or abscess. No pneumatosis or free gas. Stomach is nondistended. There is some thickening of the distal stomach and duodenum through its transverse segment. This may also be involved by active inflammation. No viscus perforation. There are aortoiliac atherosclerotic vascular calcifications without mesenteric thrombus. Lung bases are clear. Liver, gallbladder, bile ducts, spleen, adrenals and pancreas are unremarkable. The kidneys are unobstructed. Stable alignment of the left sacral alar zone 1 fracture is again noted. Fractures of the left superior and inferior pubic rami are in stable alignment. No hip or acetabular fracture. No new bony abnormality. IMPRESSION: 1. Recurrent small bowel dilatation with its at least partial distal obstruction with transition at the thickened and likely inflamed distal and terminal ileal segment. There may also be inflammation of the duodenum at the level of the pylorus. No viscus perforation, abscess or fistula found. 2. Proximal to mid colonic constipation without focal stool impaction or kaitlin large bowel obstruction. 3. Stable left pelvic fractures with no new bony injury. 4. No acute urinary tract or hepatobiliary abnormality. Dictated by: Dictated on workstation # [id number]
[2023-02-25] MEDS: NS IV 500 ML 500 ML IV SCH ×2 (15:48→21:45)
[2023-02-25] MEDS ORDERED: fentaNYL INJ 100 MCG/2 ML AMP IV PRN (16:30)
[2023-02-25 17:18] VITALS: BP 120/63
[2023-02-25] MEDS: D5 NS 1000 ML IV SOLUTION 1,000 ML IV SCH (17:33)
[2023-02-25] MEDS ORDERED: PANTOPRAZOLE 40 MG (PROTONIX) VIAL ONE (17:47)
[2023-02-25] MEDS: PANTOPRAZOLE 40 MG (PROTONIX) VIAL IV SCH (17:52)
[2023-02-25 19:28] VITALS: BP 112/55
[2023-02-25] MEDS: metroNIDAZOLE 500MG/100ML IVPB 100 ML IV SCH (22:22)
--- NOTE | 2023-02-25 22:38 | HISTORY AND PHYSICAL ---
DATE OF SERVICE: 02/25/2023 ATTENDING ADVERTISING DIRECTOR: TOMER Pride HISTORY OF PRESENT ILLNESS: The patient is a 62-year-old female who presented to the Emergency Department with abdominal pain and states that she has not had a bowel movement for over a week. She states crampy abdominal pain as well as mild distention as well as intermittent episodes of nausea and an episode of emesis. She does not report any coffee-ground emesis. She was recently admitted after a same level fall and did develop pelvic pain and unable to ambulate initially. She was evaluated and found to have a left mildly displaced superior and inferior pubic rami. After adequate pain control and physical therapy, she was able to ambulate with assistance and was discharged home on 02/21/2023. She presented to the Emergency Department again with the previously mentioned symptoms. A CT scan was performed, which did show dilated loops of small bowel as well as possible inflammation of the terminal ileum, which may indicate some level of an inflammatory bowel disease. There is a significant amount of constipated stools, mostly on the right side of the colon. During her first admission, she did take a significant amount of IV pain medications and has also been taking oral pain medications at home. 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 However, there is also a possibility of mild undiagnosed inflammatory bowel disease. PAST MEDICAL HISTORY: Thyroid goiter, scoliosis, gastroesophageal reflux disease. PAST SURGERIES: None known. ALLERGIES: CLINDAMYCIN. MEDICATIONS: Amoxicillin 500 mg t.i.d., [ ] 10 mg daily, hydrocodone 10/325 p.r.n., Zofran p.r.n., scopolamine patch q.72 hours. SOCIAL HISTORY: Negative smoke, negative alcohol. FAMILY HISTORY: Noncontributory. VITAL SIGNS: Temperature 36.5, blood pressure 106/61, pulse 95, respirations 20, pulse ox 98% on room air. REVIEW OF SYSTEMS: A well-nourished female, currently guarded secondary to the crampy abdominal pain. She is not experiencing any shortness of breath or difficulty breathing. No chest pain, palpitations, diaphoresis. Crampy abdominal pain with mild distention and episodic nausea. She has not had a bowel movement since previous admission, which was greater than 1 week ago. No fever, chills, no recent inadvertent weight loss. All other review of systems negative. PHYSICAL EXAMINATION: Will be ascertained upon examination of the patient in the a.m. The patient's history was accrued by the emergency room physician as well as the patient's electronic medical records. LABORATORY DATA: WBC 10.2, hemoglobin 14.0, hematocrit 42, platelets 465. BUN 19, creatinine 0.65. Total bilirubin 1.4. ASSESSMENT AND PLAN: A 62-year-old female with a crampy abdominal pain, abdominal distention and nausea with a recent fall and left pubic rami fracture, which was nonsurgical; however, she has been on significant amount of IV as well as oral pain medication and has not had a bowel movement since her admission on 02/19/2023. CT scan did show dilated loops of small bowel; however, there was also finding of some mild inflammation of the terminal ileum, which may indicate some level of inflammatory bowel disease. She does have a significant amount of constipated stool, mostly on the right side of the colon. 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 We will initially start with enemas until she has a significant bowel movement. Also on the CT scan, the patient also did have a distended gallbladder as well as the possibility of a biliary stone versus sludge. On this admission, we will also get an ultrasound of the gallbladder. Job ID: [id number] DocumentID: [id number] Dictated Date: 02/25/2023 22:12:50 Armature And Rotor Winder Date: 02/25/2023 22:36:00 Dictated By: NETTIE FUNES MD
[2023-02-25 23:33] VITALS: BP 104/55
[2023-02-25] MEDS: CIPROFLOXACIN IV 400MG/200ML 200 ML IV SCH (23:33)
[2023-02-26] MEDS: D5 NS 1000 ML IV SOLUTION 1,000 ML IV SCH ×4 (01:24→16:13)
[2023-02-26 03:48] VITALS: BP 105/69
[2023-02-26] MEDS: HYDROcodone/APAP 7.5 MG/325 MG (LORTAB, LORCET PLUS) TABLET PO PRN ×2 (04:35→13:23)
[2023-02-26] MEDS: PANTOPRAZOLE 40 MG (PROTONIX) VIAL IV SCH ×2 (07:37→20:46)
[2023-02-26 07:39] VITALS: BP 100/52
[2023-02-26] MEDS: metroNIDAZOLE 500MG/100ML IVPB 100 ML IV SCH ×3 (09:30→21:32)
[2023-02-26] MEDS: CIPROFLOXACIN IV 400MG/200ML 200 ML IV SCH ×2 (10:27→22:39)
[2023-02-26] MEDS: FLEET ENEMA ADULT 1 EA BTL PR SCH ×2 (10:27→20:47)
[2023-02-26 11:07] VITALS: BP 107/57
--- NOTE | 2023-02-26 12:55 | Diagnostic Imaging Report ---
PROCEDURE: US Abdomen, limited. INDICATION: Diffuse abdominal pain, constipation TECHNIQUE: Multiple grayscale sonographic images were obtained of the right upper quadrant of the abdomen. CORRELATION STUDY: CT 02/25/2023 FINDINGS: LIVER: There is uniform echotexture within the visualized portions of the liver. The main portal vein is patent and with normal direction of flow. There are length 15.6 cm. GALLBLADDER: The gallbladder demonstrates no definitive shadowing gallstones, abnormal gallbladder wall thickening or pericholecystic fluid. There is presence of biliary sludge. COMMON BILE DUCT: Nondilated at 0.5 cm. PANCREAS: Visualized portions appearing unremarkable. AORTA/IVC: Not well visualized. RIGHT KIDNEY: 10 x 4.6 x 4.5 cm. No hydronephrosis. OTHER: No significant ascites. Overall assessment of the abdomen is somewhat limited given patient's limited mobility from known pelvic fractures. IMPRESSION: 1. Negative appearing right upper quadrant abdominal ultrasound. Dictated by: Dictated on workstation # [id number]
[2023-02-26] MEDS ORDERED: HYDR-3820 PO (13:30)
[2023-02-26] MEDS ORDERED: ONDA4TAB11 PO (13:31)
[2023-02-26] MEDS ORDERED: SCOP1PAT10 TD (13:32)
--- NOTE | 2023-02-26 14:21 | Diagnostic Imaging Report ---
ABDOMEN, FLAT UPRIGHT/DECUB INDICATION: Small bowel obstruction COMPARISON: CT abdomen and pelvis of prior day. TECHNIQUE: Upright and supine AP view of the abdomen. FINDINGS: There remains gas and fluid-filled loops of small bowel, in the central abdomen they are mildly dilated. Air-fluid levels are present on upright imaging. A small amount of gas is present in the colon. No free intraperitoneal air. Lung bases are clear. IMPRESSION: Stable bowel gas pattern favoring partial small bowel obstruction due to inflammation associated with the terminal ileum seen on yesterday's CT. Dictated by: Dictated on workstation # [id number]
[2023-02-26 15:24] VITALS: BP_SYST 87; BP_SYST 96; BP_DIAS 50; BP_DIAS 54
[2023-02-26] MEDS: ONDANSETRON 4 MG/2 ML (SDV) Z0FRAN IV PRN (16:18)
[2023-02-26 19:09] VITALS: BP 103/55
--- NOTE | 2023-02-26 20:33 | Progress Note ---
Subjective Date Seen by a Provider: February 26, 2023 Time Seen by a Provider: 20:00 Subjective/Events-last exam doing ok. had 2 large bowel movements today with much less abd distention. tolerating clears. hx on crohns with issues developing since fall. Objective Exam Vital Signs Date Time Temp Pulse Resp B/P (MAP) Pulse Ox O2 Delivery O2 Flow Rate FiO2 02/26/23 19:09 36.5 62 18 103/55 (71) 96 Room Air 02/26/23 15:24 36.8 62 16 96/54 (68) 96 Room Air 02/26/23 11:07 36.3 57 18 107/57 (74) 98 Room Air 02/26/23 07:55 94 Room Air 02/26/23 07:39 36.5 65 19 100/52 (68) 95 Room Air 02/26/23 03:48 36.4 77 18 105/69 (81) 96 Room Air 02/25/23 23:33 36.4 76 18 104/55 (71) 94 Room Air I & O 02/26/23 07:00 Intake Total 250 ml Balance 250 ml Capillary Refill : Less Than 3 Seconds General Appearance: No Apparent Distress HEENT: PERRL/EOMI Neck: Full Range of Motion Respiratory: Chest Non Tender, Lungs Clear Cardiovascular: Regular Rate, Rhythm Gastrointestinal: normal bowel sounds, soft, tenderness Extremity: Normal Capillary Refill Neurologic/Psychiatric: Alert, Oriented x3 Skin: Normal Color Lymphatic: No Adenopathy Assessment/Plan Assessment/Plan Assess & Plan/Chief Complaint psbo at terminal ileum secondary to terminal ileitis and intermittent nausea and vomiting which may represent biliary dyskinesia. start medrol dose pack. HIDA scan tomorrow. clear liquids for now until nausea resolves. NETTIE FUNES MD February 26, 2023 20:33
[2023-02-26] MEDS ORDERED: predniSONE 20 MG TAB ONE (20:45)
[2023-02-26] MEDS ORDERED: predniSONE 20 MG TAB PO ONE (20:45)
[2023-02-26] MEDS: NS IV 500 ML 500 ML IV SCH (21:17)
[2023-02-26 23:02] VITALS: BP 112/58
[2023-02-27] MEDS: D5 NS 1000 ML IV SOLUTION 1,000 ML IV SCH ×4 (01:02→22:40)
[2023-02-27 04:14] VITALS: BP 109/63
[2023-02-27 07:03] VITALS: BP 104/65
[2023-02-27] MEDS: PANTOPRAZOLE 40 MG (PROTONIX) VIAL IV SCH ×2 (07:49→19:55)
[2023-02-27] MEDS: FLEET ENEMA ADULT 1 EA BTL PR SCH ×2 (07:51→19:55)
[2023-02-27] MEDS: CIPROFLOXACIN IV 400MG/200ML 200 ML IV SCH ×2 (11:21→22:38)
[2023-02-27] MEDS: ONDANSETRON 4 MG/2 ML (SDV) Z0FRAN IV PRN (11:21)
[2023-02-27] MEDS: metroNIDAZOLE 500MG/100ML IVPB 100 ML IV SCH ×2 (11:23→21:33)
[2023-02-27 11:29] VITALS: BP 105/58
--- NOTE | 2023-02-27 12:18 | Diagnostic Imaging Report ---
INDICATION: Persistent postprandial nausea. FINDINGS: The patient was administered 5.45 mCi of Tc 99m Choletec and sequential imaging was performed over the right upper abdomen. There is progressive, homogeneous accumulation of radiotracer within the liver parenchyma. There is filling of the bile ducts and subsequent filling of the gallbladder. There is progressive clearance of activity from the liver parenchyma and accumulation of radiotracer within loops of small bowel. The patient was then administered a fatty meal, utilizing 8 ounces of Ensure. The gallbladder ejection fraction was calculated to be approximately 15.5%. (Normal values post fatty meal stimulation are 33% or greater.) IMPRESSION: 1. Hepatobiliary scan demonstrates a patent biliary tree. 2. Abnormal gallbladder ejection fraction of approximately 15.5%. Dictated by: Dictated on workstation # [id number]
--- NOTE | 2023-02-27 12:25 | Progress Note ---
Subjective Date Seen by a Provider: February 27, 2023 Time Seen by a Provider: 12:15 Subjective/Events-last exam Patient seen with Dr. Kumar. Patient reports have nausea since HIDA but no vomiting. She reports that she did have some abdominal pain earlier but has improved. Had BM this morning. Objective Exam Vital Signs Date Time Temp Pulse Resp B/P (MAP) Pulse Ox O2 Delivery O2 Flow Rate FiO2 02/27/23 11:29 37.5 58 18 105/58 (74) 99 Room Air 02/27/23 08:00 Room Air 02/27/23 07:03 36.3 62 18 104/65 (78) 97 Room Air 02/27/23 04:14 36.3 62 18 109/63 (78) 97 Room Air 02/26/23 23:02 36.5 61 18 112/58 (76) 96 Room Air 02/26/23 20:50 Room Air 02/26/23 19:09 36.5 62 18 103/55 (71) 96 Room Air 02/26/23 15:24 36.8 62 16 96/54 (68) 96 Room Air I & O 02/27/23 06:59 Intake Total 2180 ml Output Total 950 ml Balance 1230 ml Capillary Refill : Less Than 3 Seconds General Appearance: No Apparent Distress, WD/WN Neck: Normal Inspection, Supple Respiratory: No Accessory Muscle Use, No Respiratory Distress Gastrointestinal: normal bowel sounds, soft, tenderness (RUQ) Extremity: Normal Inspection, Normal Range of Motion Neurologic/Psychiatric: Alert, Oriented x3 Skin: Normal Color, Warm/Dry Assessment/Plan Assessment/Plan Assess & Plan/Chief Complaint psbo at terminal ileum secondary to terminal ileitis and intermittent nausea and vomiting which may represent biliary dyskinesia. Continue medrol dose pack. HIDA scan showed ejection fraction of 15% clear liquids Pain and nausea meds as needed Will schedule lap peri on this admission. MICHAEL BAH APRN February 27, 2023 12:25
[2023-02-27] MEDS: NS IV 500 ML 500 ML IV SCH (15:08)
[2023-02-27 15:42] VITALS: BP 97/52
--- NOTE | 2023-02-27 17:03 | Progress Note-Pre Operative ---
Pre-Operative Progress Note Date of Available H&P: February 27, 2023 Date H&P Reviewed: February 27, 2023 Time H&P Reviewed: 17:00 History & Physical: No changes noted Pre-Operative Diagnosis: sx biliary dyskinesia NETTIE FUNES MD February 27, 2023 17:03
[2023-02-27] MEDS: HYDROcodone/APAP 7.5 MG/325 MG (LORTAB, LORCET PLUS) TABLET PO PRN (17:20)
[2023-02-27 19:26] VITALS: BP 105/53
[2023-02-27] MEDS ORDERED: predniSONE 5 MG TAB PO ONE (22:00)
[2023-02-27 23:10] VITALS: BP 95/49
[2023-02-28] VITALS (10 sets, daily range): BP systolic 105–129; BP diastolic 54–71
[2023-02-28] MEDS: D5 NS 1000 ML IV SOLUTION 1,000 ML IV SCH ×3 (02:19→21:16)
[2023-02-28] MEDS: PANTOPRAZOLE 40 MG (PROTONIX) VIAL IV SCH ×2 (08:27→19:48)
[2023-02-28] MEDS: FLEET ENEMA ADULT 1 EA BTL PR SCH ×2 (08:28→19:38)
[2023-02-28] MEDS ORDERED: BUP/EPI 0.5% 1:200,000 (SENSORCAINE) 30 ML VIAL ONE (08:45)
[2023-02-28] MEDS ORDERED: ROCURONIUM 50 MG/5 ML (ZEMURON) VIAL IV ONE ×2 (08:50→09:41)
[2023-02-28] MEDS ORDERED: fentaNYL INJ 100 MCG/2 ML AMP ONE ×2 (08:50→09:40)
[2023-02-28] MEDS ORDERED: proPOfol 200 MG/20 ML (DIPRIVAN) VIAL IV ONE ×2 (08:50→09:40)
[2023-02-28] MEDS ORDERED: MIDAZOLAM 2 MG/2 ML (VERSED) VIAL ONE ×2 (08:50→09:40)
[2023-02-28] MEDS ORDERED: SEVOFLURANE (ULTANE) 15 ML INHAL SOLN ONE (08:50)
[2023-02-28] MEDS ORDERED: ONDANSETRON 4 MG/2 ML (SDV) Z0FRAN ONE ×2 (08:50→09:40)
[2023-02-28] MEDS ORDERED: LIDOCAINE PF 2% 5 ML (XYLOCAINE) VIAL ONE ×2 (08:50→09:40)
[2023-02-28] MEDS ORDERED: GLYCOPYRROLATE 0.2 MG/ML (ROBINUL) 2 ML VIAL ONE ×2 (09:40→11:09)
[2023-02-28] MEDS ORDERED: NEOSTIGMINE (BLOXIVERZ ) 1 MG/1ML 10 ML VIAL ONE (09:41)
[2023-02-28] MEDS ORDERED: ACHYD1T PO (09:51)
--- NOTE | 2023-02-28 09:52 | Discharge Inst-Surgical ---
D/C Lap Instructions-MARIN New, Converted, or Re-Newed RX: RX on Chart Follow Up Appt in 2 weeks Activity as tolerated No driving for 24 hours No driving while on pain medications Incentive Spirometry use every 2 hours while awake Regular Diet Symptoms to Report: Fever over 101 degree F, Nausea/Vomiting Infection Signs and Symptoms to report: Increased redness, Foul odor of wound, Increased drainage Bathing instructions: May shower Operative Area Clean/Dry; Keep incision clean/dry If any problems/questions: Contact your physician or go to Emergency Room NETTIE FUNES MD February 28, 2023 09:52
[2023-02-28] MEDS: LACTATED RINGERS 1,000 ML IV PRN ×2 (10:00→11:00)
[2023-02-28] MEDS ORDERED: ceFAZolin INJECTION 1,000 MG ONE (10:28)
[2023-02-28] MEDS ORDERED: HYDROmorphone 2 MG/ML VIAL (DILAUDID) ONE (10:40)
[2023-02-28] MEDS ORDERED: BUP/EPI 0.5% 1:200,000 (SENSORCAINE) 30 ML VIAL INJ ONE (10:48)
[2023-02-28] MEDS ORDERED: NEOSTIGMINE 3 MG/3 ML VIAL ONE (11:09)
--- NOTE | 2023-02-28 11:15 | Progress Note-Post Operative ---
Post-Operative Progess Note Surgeon (s)/Electrical Prospecting Operator (s) Surgeon NETTIE FUNES MD Electrical Prospecting Operator: alfredo bradford [employer] MANAGER Pre-Operative Diagnosis sx biliary dyskinesia Post-Operative Diagnosis same Procedure & Operative Findings Date of Procedure 02/28/23 Procedure Performed/Findings laparoscopic cholecystectomy Anesthesia Type get Estimated Blood Loss Estimated blood loss (mL): minimal Specimens/Packing Specimens Removed gallbladder NETTIE FUNES MD February 28, 2023 11:15
[2023-02-28] MEDS ORDERED: ONDANSETRON 4 MG/2 ML (SDV) Z0FRAN IVP PRN (11:30)
[2023-02-28] MEDS ORDERED: HYDROmorphone 2 MG/ML VIAL (DILAUDID) IV ONE (11:30)
[2023-02-28] MEDS ORDERED: morphine INJ 10 MG/ML 1ML (SYR OR VIAL) IVP ONE (11:30)
[2023-02-28] MEDS ORDERED: morphine INJ 10 MG/ML 1ML (SYR OR VIAL) ONE (12:02)
--- NOTE | 2023-02-28 12:37 | Anesthesia-General Post-Op ---
General Patient Condition Mental Status/LOC: Same as Preop Cardiovascular: Satisfactory Nausea/Vomiting: Present Respiratory: Satisfactory Pain: Controlled Complications: Absent Post Op Complications Complications None Follow Up Care/Instructions Patient Instructions None needed. Anesthesia/Patient Condition Patient Condition Patient is awake in PACU. She did C/O nausea despite intraop pretreatment with ondansetron and dexamethasone. More ondansetron was given which was helpful. She has stable vital signs, no other apparent adverse anesthesia problems. No complications reported per nursing. LUIS SALAZAR DO February 28, 2023 12:37
[2023-02-28] MEDS: NS IV 500 ML 500 ML IV SCH ×2 (13:09→22:15)
[2023-02-28] MEDS: metroNIDAZOLE 500MG/100ML IVPB 100 ML IV SCH ×2 (13:24→21:16)
[2023-02-28] MEDS: CIPROFLOXACIN IV 400MG/200ML 200 ML IV SCH ×2 (13:24→22:21)
--- NOTE | 2023-02-28 17:55 | OPERATIVE REPORT ---
DATE OF SERVICE: 02/28/2023 ATTENDING PRIMARY CARE PHYSICIAN: Ml Wright APRN PREOPERATIVE DIAGNOSIS: Symptomatic biliary dyskinesia. POSTOPERATIVE DIAGNOSIS: Symptomatic biliary dyskinesia. PROCEDURE: Laparoscopic cholecystectomy. SURGEON: Nettie Funes MD SUPERVISOR [employer]URING: Eduard Mcmahon APRN ANESTHESIA: General endotracheal. ESTIMATED BLOOD LOSS: Minimal. FINDINGS: Distended gallbladder with very thick bile. DISPOSITION: The patient tolerated the procedure well. INDICATIONS: The patient is a 62-year-old female who presented to the emergency department with absence from bowel movement for over a week, abdominal distention as well as crampy abdominal pain and intermittent episodes of nausea and vomiting. She had fallen and sustained a mildly displaced superior and inferior left pubic rami. She was able to get adequate pain control with therapy as well as pain medications and she was discharged on 02/21/2023. She presented to the emergency department again with the previously mentioned symptoms and was found to have dilated loops of small bowel as well as mild inflammation of the terminal ileum, which was found before on previous CT scan. There was also a significant amount of constipated stool, mostly on the right side of the colon. The patient was given Fleets enemas and she was able to have a large bowel movement and she had significant decrease in abdominal distention as well as crampy pain. She was able to drink liquids and eat some; however, continued to have these issues with intermittent nausea and vomiting. She states that this has been an issue for a few months. She also had reported that she underwent an ultrasound approximately a year ago; however, does not report any abnormalities. We then proceeded with a HIDA scan, which showed a very low ejection fraction of 15% as well as severe reproduction of symptoms after the administration of the Kinevac analogue consistent with symptomatic biliary dyskinesia. DESCRIPTION OF PROCEDURE: The patient was brought to the operating room, laid supine on the table. After adequate IV pain and sedative medications and general endotracheal intubation, the abdomen was prepped and draped in standard surgical fashion. A 0.5% Marcaine with epinephrine was then used to anesthetize the overlying skin in the left upper abdominal quadrant and a transverse skin incision made using a #15 blade. An 0 silk suture was applied to the medial aspect of the incision for retraction and Veress needle inserted with a low opening pressure of 0 mmHg and the abdomen was then insufflated to 15 mmHg pressure. The Veress needle removed and a 5 mm XL trocar placed followed by a 5 mm 45-degree angle laparoscope visualizing the peritoneal cavity. A 4-quadrant abdominal exploration was performed. There was a distended gallbladder, no gallbladder wall thickening. Under direct visualization, we then proceeded to place a supraumbilical 10 mm port after the skin and peritoneal lining were anesthetized using 0.5% Marcaine with epinephrine and a transverse skin incision made using a #15 blade. In a similar manner, a right upper abdominal quadrant 5 mm port was placed. The patient was then placed in reverse Trendelenburg position as well as plane right side up, left side down. Fundus of gallbladder was then retracted anteriorly and superiorly. The hepatoduodenal ligament was then dissected bluntly as well as using electrocautery and using the hook instrument as well as the [place] dissector. The entire critical view of safety was identified including the triangle of Calot as well as the cystic duct and artery as the only 2 structures going into the gallbladder as well as the cystic plate behind the proximal gallbladder. A timeout was then taken and the cystic duct and artery were then clipped proximally and distally and cut with EndoShears. The gallbladder was then dissected off of the liver bed using cautery on the hook instrument with visualization of good hemostasis as well as no leaking ducts of Luschka. The gallbladder was then removed through the 10 mm port site. The 10 mm port site fascia and peritoneum were then closed under direct visualization using a Angel-Tin device and 0 Vicryl suture. The abdomen was desufflated and the remaining ports were removed. All skin incisions were closed using 4-0 Monocryl running subcuticular sutures. Wounds were then cleaned and covered with Dermabond. The patient tolerated the procedure well. We will start IV normal pain medication as well as a clear liquid diet. Once she is tolerating clears with good pain control with oral pain medications, ambulating well, we will discharge her home where she will be instructed to do no heavy lifting or exertion for the next 2 weeks. Job ID: [id number] DocumentID: [id number] Dictated Date: 02/28/2023 11:22:28 Restaurant Assistant Manager Date: 02/28/2023 17:52:00 Dictated By: NETTIE FUNES MD [facility] HEART CENTERBryanna
[2023-02-28] MEDS: ONDANSETRON 4 MG/2 ML (SDV) Z0FRAN IV PRN (18:11)
[2023-02-28] MEDS ORDERED: predniSONE 10 MG TAB PO ONE (20:45)
[2023-03-01] MEDS: D5 NS 1000 ML IV SOLUTION 1,000 ML IV SCH ×2 (05:35→09:48)
[2023-03-01 07:36] VITALS: BP 107/59
[2023-03-01] MEDS: ONDANSETRON 4 MG/2 ML (SDV) Z0FRAN IV PRN (08:21)
[2023-03-01] MEDS: HYDROcodone/APAP 7.5 MG/325 MG (LORTAB, LORCET PLUS) TABLET PO PRN (08:22)
[2023-03-01] MEDS: FLEET ENEMA ADULT 1 EA BTL PR SCH (09:27)
[2023-03-01] MEDS: PANTOPRAZOLE 40 MG (PROTONIX) VIAL IV SCH (09:27)
[2023-03-01] MEDS: CIPROFLOXACIN IV 400MG/200ML 200 ML IV SCH (10:34)
[2023-03-01] MEDS: metroNIDAZOLE 500MG/100ML IVPB 100 ML IV SCH (10:34)
[2023-03-01 11:57] VITALS: BP 119/80
[2023-03-01] MEDS ORDERED: predniSONE 5 MG TAB PO ONE (20:45)
== END 2023-03-01 13:34 | disposition home or self-care (01) | DRG 358 ==
LOC: EDUNIT# 14:19 → ER 14:20 → 4TH 15:46
PROVIDERS: ADMIT Surgery; ATTEND Surgery
PROC: 0FT44ZZ Resection of Gallbladder, Percutaneous Endoscopic Approach (ICD-10-PCS; principal; 2023-02-28 10:03)
DX: K50.012 Crohn's disease of small intestine with intestinal obstruction (principal); K82.8 Other specified diseases of gallbladder; T40.2X5A Adverse effect of other opioids, initial encounter; S32.592D Other specified fracture of left pubis, subsequent encounter for fracture with routine healing; K21.9 Gastro-esophageal reflux disease without esophagitis; M41.9 Scoliosis, unspecified; E04.9 Nontoxic goiter, unspecified; Z79.891 Long term (current) use of opiate analgesic; Z79.899 Other long term (current) drug therapy; Z88.1 Allergy status to other antibiotic agents
CPT/HCPCS: 36415; 74019; 74177; 76705; 78227; 80053; 85025; 87081; 96374; 96375

== ENCOUNTER → 2023-03-14 | Outpatient (CLI) | payer BC ==
[~2023-03-14] MED LIST changes: +HYDR-3820 PO; +ONDA4TAB11 PO
--- NOTE | 2023-03-14 11:50 | Diagnostic Imaging Report ---
HISTORY: Multiple prior fractures. Follow-up. EXAMINATION: Pelvis with left hip from 03/14/2023. COMPARISON: 02/19/2023. FINDINGS: Again seen are fractures of the left superior and inferior pubic rami. Minimal early callus formation is noted. Alignment is stable. No fractures identified. No dislocations. IMPRESSION: 1. Early changes of healing about the left inferior and superior pubic ramus fractures. Dictated by: Dictated on workstation # [id number]
== END ==
LOC: ORTHO 09:04
PROVIDERS: ATTEND Orthopaedic Surgery
DX: S32.810D Multiple fractures of pelvis with stable disruption of pelvic ring, subsequent encounter for fracture with routine healing (principal); X58.XXXD Exposure to other specified factors, subsequent encounter
CPT/HCPCS: 73502; G0463; 99203

== ENCOUNTER → 2023-04-17 | Outpatient (CLI) | payer BC ==
--- NOTE | 2023-04-17 17:47 | Diagnostic Imaging Report ---
Indication: Follow-up pubic rami fracture. Time of Exam: 8:40 AM Correlation is made with prior radiograph from 03/14/2023. Single AP view of the pelvis was obtained. Healing fractures of the left superior and inferior pubic rami are again noted. There appears to be some callus formation present. Fracture line of the superior pubic ramus is still visualized. Right-sided rami are intact. Normal femoral acetabular alignment is noted bilaterally. SI joints and symphysis are non-widened. IMPRESSION: Healing left-sided rami fractures. Dictated by: Dictated on workstation # [id number]
== END ==
LOC: ORTHO 08:31
PROVIDERS: ATTEND Orthopaedic Surgery
DX: S32.592D Other specified fracture of left pubis, subsequent encounter for fracture with routine healing (principal); X58.XXXD Exposure to other specified factors, subsequent encounter
CPT/HCPCS: 72170; G0463; 99213

== ENCOUNTER 2023-05-01 01:13 | Inpatient (IN) | payer BC ==
[~2023-05-01] VITALS: Ht 180.3 cm; Wt 49.5 kg
[2023-05-01] MEDS ORDERED: NS IV 1000 ML 1,000 ML IV STA (01:31)
[2023-05-01] MEDS ORDERED: fentaNYL INJ 100 MCG/2 ML AMP IVP STA (01:31)
[2023-05-01 01:38] LABS: BASOPHILS # (AUTO) 0.1 10^3/uL (0.0-0.1); BASOPHILS % (AUTO) 1 % (0-10); EOSINOPHILS # (AUTO) 0.1 10^3/uL (0.0-0.3); EOSINOPHILS % (AUTO) 1 % (0-10); HEMATOCRIT 46 % (35-52); HEMOGLOBIN 14.8 g/dL (11.5-16.0); LYMPHOCYTES # (AUTO) 2.4 10^3/uL (1.0-4.0); LYMPHOCYTES % (AUTO) 20 % (12-44); MEAN CORPUSCULAR HEMOGLOBIN 28 pg (25-34); MEAN CORPUSCULAR HGB CONC 33 g/dL (32-36); MEAN CORPUSCULAR VOLUME 86 fL (80-99); MEAN PLATELET VOLUME 8.6 fL (9.0-12.2); MONOCYTES # (AUTO) 0.8 10^3/uL (0.0-1.0); MONOCYTES % (AUTO) 7 % (0-12); NEUTROPHILS # (AUTO) 8.7 10^3/uL (1.8-7.8); NEUTROPHILS % (AUTO) 72 % (42-75); PLATELET COUNT 406 10^3/uL (130-400)
--- NOTE | 2023-05-01 01:39 | ED Abdominal Pain ---
General Chief Complaint: Abdominal/GI Problems Stated Complaint: NAUSEA,VOMITING,HEART BURN Nursing Triage Note: PT AMB TO [facility] 5 WITH CC OF ABD PAIN AND HEART BURN THAT STARTED TODAY. PT TOOK PAIN PILL AND ZOFRAN TODAY. HX OF HIATAL HERNIA. Source of Information: Patient Exam Limitations: No Limitations History of Present Illness Date Seen by Provider: May 01, 2023 Time Seen by Provider: 01:23 Initial Comments Here with report of rather significant abdominal pain and bloating without being able to pass gas or stool and has had nausea but no vomiting yet. Does have history of bowel obstruction in the past that resolved conservatively. There is concern in her history related to potential Crohn's disease. Had admission earlier this year with Dr. Antony for possible Crohn's disease. She is on PPI and continues to take that. States that she felt constipated and has had MiraLAX 3 doses over the last 36 hours as well as stool softeners. That has not resolved with stool and she had a very small bowel movement yesterday but none since then again not passing gas since. She has had previous cholecystectomy with Dr. Kumar and then work-up from Dr. Antony in November. She has had subsequent colonoscopy which apparently was negative. Denies fever chills or upper respiratory symptoms. States the pain is coming and going and has significant intensity. She states that she does not follow with [facility] anymore that she follows with Ml Sutherland at [facility]. Timing/Duration: 2-3 Days Severity/Quality: Moderate, Severe, Aching, Cramping Location: Generalized Abdomen Radiation: No Radiation Activities at Onset: None Modifying Factors: Worsens With Eating Associated Symptoms: No Back Pain, No Chest Pain, No Fever/Chills; Nausea/Vomiting; No Shortness of Air; Swelling/Mass in Abdomen Allergies and Home Medications Allergies Coded Allergies: clindamycin (Unverified Allergy, Intermediate, 11/30/22) "CHEST PAIN AND PRESSURE" Patient Home Medication List Home Medication List Reviewed: Yes Acetaminophen (Tylenol Extra Strength) 500 Mg Tablet, 1,000 MG PO Q8H PRN for PAIN-MILD (1-4), (Reported) Entered as Reported by: MJ HIRSCH on 02/19/23 110 Bacillus Coagulans (Probiotic) 10 Billion Cell Capsule., 1 EACH PO DAILY, (Reported) Entered as Reported by: MJ HIRSCH on 02/19/23 1103 Cetirizine HCl (Zyrtec) 10 Mg Tablet, 10 MG PO DAILY, (Reported) Entered as Reported by: MJ HIRSCH on 02/19/23 1102 Hydrocodone Bit/Acetaminophen (HYDROcodone/APAP 10/325 TABLET) 1 Ea Tab, 1 EA PO Q4H PRN for PAIN-BREAKTHROUGH Prescribed by: NETTIE KUMAR on 02/28/23 0951 Hydrocodone/Acetaminophen (Hydrocodone-Acetamin 10-325 mg) 10 Mg-325 Mg Tablet, 1 EA PO Q4H PRN for PAIN-MODERATE (5-7), (Reported) Entered as Reported by: MJ HIRSCH on 02/26/23 1330 Ondansetron (Ondansetron Odt) 4 Mg Tab.rapdis, 4 MG PO Q6H PRN for NAUSEA-1ST LINE, (Reported) Entered as Reported by: MJ HIRSCH on 02/26/23 1331 Scopolamine (Transderm-Scop) 1 Mg/3 Day Patch.td72, 1 EA TD Q72H, (Reported) Entered as Reported by: MJ HIRSCH on 02/26/23 1332 Review of Systems Review of Systems Constitutional: see HPI; No chills, No fever EENTM: No Symptoms Reported Respiratory: Denies Cough, Denies Shortness of Air Cardiovascular: Denies See HPI, Denies Edema Gastrointestinal: Abdomen Distended, Abdominal Pain, Constipated, Nausea Genitourinary: No Symptoms Reported Musculoskeletal: no symptoms reported Skin: no symptoms reported Psychiatric/Neurological: No Symptoms Reported Past Gymsqkd-Llpfnh-Iasqmp Hx Patient Social History Tobacco Use?: No Substance use?: No Alcohol Use?: No Seasonal Allergies Seasonal Allergies: Yes Past Medical History Surgery/Hospitalization HX: RT THYROID GOITER Surgeries: Yes (Colonoscopy) Thyroidectomy Respiratory: No Cardiac: No Neurological: No 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 oz. [id number]; 14.00 BMI Method:Stated General Appearance: WD/WN, thin HEENT: PERRL/EOMI, pharynx normal Neck: full range of motion, supple Respiratory: lungs clear, normal breath sounds Cardiovascular: regular rate, rhythm, no murmur Gastrointestinal: abnormal bowel sounds (Hypoactive), distended, tenderness (Diffusely) Extremities: non-tender, normal inspection Back: normal inspection, no CVA tenderness, no vertebral tenderness Neurologic/Psychiatric: alert, oriented x 3 Skin: normal color, warm/dry Focused Exam Lactate Level 05/01/23 02:50: Lactic Acid Level 0.97 Lactic Acid Level Laboratory Tests Test 05/01/23 02:50 Lactic Acid Level 0.97 MMOL/L (0.50-2.00) Progress/Results/Core Measures Results/Orders Lab Results Laboratory Tests Test 05/01/23 01:30 05/01/23 02:50 Range/Units White Blood Count 12.0 H 4.3-11.0 10^3/uL Red Blood Count 5.28 H 3.80-5.11 10^6/uL Hemoglobin 14.8 11.5-16.0 g/dL Hematocrit 46 35-52 % Mean Corpuscular Volume 86 80-99 fL Mean Corpuscular Hemoglobin 28 25-34 pg Mean Corpuscular Hemoglobin Concent 33 32-36 g/dL Red Cell Distribution Width 13.5 10.0-14.5 % Platelet Count 406 H 130-400 10^3/uL Mean Platelet Volume 8.6 L 9.0-12.2 fL Immature Granulocyte % (Auto) 0 % Neutrophils (%) (Auto) 72 42-75 % Lymphocytes (%) (Auto) 20 12-44 % Monocytes (%) (Auto) 7 0-12 % Eosinophils (%) (Auto) 1 0-10 % Basophils (%) (Auto) 1 0-10 % Neutrophils # (Auto) 8.7 H 1.8-7.8 10^3/uL Lymphocytes # (Auto) 2.4 1.0-4.0 10^3/uL Monocytes # (Auto) 0.8 0.0-1.0 10^3/uL Eosinophils # (Auto) 0.1 0.0-0.3 10^3/uL Basophils # (Auto) 0.1 0.0-0.1 10^3/uL Immature Granulocyte # (Auto) 0.0 0.0-0.1 10^3/uL Sodium Level 140 135-145 MMOL/L Potassium Level 4.3 3.6-5.0 MMOL/L Chloride Level 104 98-107 MMOL/L Carbon Dioxide Level 24 21-32 MMOL/L Anion Gap 12 5-14 MMOL/L Blood Urea Nitrogen 14 7-18 MG/DL Creatinine 0.76 0.60-1.30 MG/DL Estimat Glomerular Filtration Rate 89 BUN/Creatinine Ratio 18 Glucose Level 124 H 70-105 MG/DL Calcium Level 9.7 8.5-10.1 MG/DL Corrected Calcium 9.9 8.5-10.1 MG/DL Magnesium Level 1.7 1.6-2.4 MG/DL Total Bilirubin 1.0 0.1-1.0 MG/DL Aspartate Amino Transf (AST/SGOT) 16 5-34 U/L Alanine Aminotransferase (ALT/SGPT) 9 0-55 U/L Alkaline Phosphatase 103 40-136 U/L C-Reactive Protein High Sensitivity 0.53 H 0.00-0.50 MG/DL Total Protein 6.9 6.4-8.2 GM/DL Albumin 3.7 3.2-4.5 GM/DL Lipase 29 8-78 U/L Lactic Acid Level 0.97 0.50-2.00 MMOL/L My Orders Orders - AYAN WHITNEY MD Ekg Tracing (05/01/23 01:20) Cbc With Automated Diff (05/01/23 01:31) Comprehensive Metabolic Panel (05/01/23 01:31) Hs C Reactive Protein (05/01/23 01:31) Lipase (05/01/23 01:31) Magnesium (05/01/23 01:31) Fentanyl Inj (Sublimaze Injection) (05/01/23 01:31) Ns Iv 1000 Ml (Sodium Chloride 0.9%) (05/01/23 01:31) Hyoscyamine Sl Tablet (Levsin Sl Tablet) (05/01/23 01:45) Ed Iv/Invasive Line Start (05/01/23 01:31) Ct Abdomen/Pelvis W (05/01/23 01:58) Iohexol Injection (Omnipaque 350 Mg/Ml 1 (05/01/23 02:45) Received Contrast (Hold Metformin- Contr (05/01/23 02:45) Ns (Ivpb) 100 Ml (Sodium Chloride 0.9% 1 (05/01/23 02:45) Lactic Acid Analyzer (05/01/23 02:45) Medications Given in ED Current Medications Medications Dose Ordered Sig/Андрей Route Start Time Stop Time Status Last Admin Dose Admin Hyoscyamine Sulfate 0.125 mg ONCE ONCE SL 05/01/23 01:45 05/01/23 01:46 DC 05/01/23 01:38 0.125 MG Iohexol 100 ml ONCE ONCE IV 05/01/23 02:45 05/01/23 02:57 DC 05/01/23 02:44 56 ML Sodium Chloride 100 ml ONCE ONCE IV 05/01/23 02:45 05/01/23 02:57 DC 05/01/23 02:44 80 ML Vital Signs/I&O 05/01/23 01:20 Temp 36.2 Pulse 80 B/P (MAP) 147/96 (113) Pulse Ox 99 O2 Delivery Room Air Blood Pressure Mean: 113 Progress Progress Note : Progress Note Seen and evaluated. IV, labs including CBC, CMP, CRP, magnesium and lipase ordered. Normal saline 1 L bolus, fentanyl 50 mcg IV and Levsin 0.125 mg p.o. ordered. Anticipate CT abdomen pelvis. Monitor patient. Differential diagnosis includes bowel obstruction, perforation, mass, electrolyte abnormality, dehydration 0204: Labs reviewed and CBC shows slightly elevated white count but otherwise grossly normal. CMP shows grossly normal electrolytes with normal lipase and slightly elevated CRP. Normal liver enzymes and total bilirubin noted. Given her pain and presenting symptoms, we have ordered CT abdomen pelvis with contrast to evaluate for obstruction. Monitor patient. 0248: CT abdomen pelvis reviewed by me and there is definite concerns for obstruction she is got grossly decompressed distal large bowel and air-fluid levels proximal with hyperexpanded small bowel on my interpretation. Pending radiology report. We will go ahead and get lactic acid evaluation to evaluate for necrotic bowel. I do not believe she has findings concerning for infection at this point so we will hold on blood cultures. Monitor patient. 0419: CT results as noted below. There is findings concerning for small bowel obstruction with transition point at the terminal ileum. I did discuss the case with Dr. Lara, surgeon on-call. Last surgeon that took care of her was Dr. Kumar and he will accept patient for admission to Dr. Kumar service with patient to remain n.p.o. and orders for IV fluids, pain and nausea medicines. This was discussed with the patient who agrees. She is doing better now. I would hesitate to allow any diet at this point given how full the small bowel is and stomach. Patient has not tolerated NG tube in the past so we will avoid this at this point. She has not vomited during the stay so I think we have time. We did discuss the possibility of inflammatory bowel disorder such as Crohn's but we will hold steroids pending evaluation by Dr. Kumar. All of this was discussed with patient and family who agree to admission. Admit, inpatient status. Diagnostic Imaging Diagonstic Imaging: CT Plain Films/CT/US/NM/MRI: abdomen, pelvis Comments Findings concern for bowel obstruction with transition point involving the inflamed 20 m stretch of terminal ileum. Upstream bowel loops measure up to 5 cm. No evidence of pneumatosis, portal vein gas or free air. Diffuse mucosal enhancement within the terminal ileum extending to the ileocecal valve. Findings may relate to active inflammatory disease. Other etiologies possible. Mild mesenteric ascites which is likely reactive in nature. Liquid colonic contents which likely relates to sequela of current diarrheal illness. No other acute finding. Per stat rad report. Reviewed by me. Reviewed: [facility]ed by Me Departure Communication (Admissions) Time/Spoke to Admitting Phy: 04:19 Impression Primary Impression: Small bowel obstruction Disposition: ADMITTED INPATIENT Condition: Stable Admissions Decision to Admit Reason: Admit from ER (General) Decision to Admit/Date: May 01, 2023 Time/Decision to Admit Time: 04:19 Departure-Patient Inst. Referrals: [facility] [place] (PCP) Primary Care Physician ZAC SUTHERLAND (Family) Primary Care Physician AYAN WHITNEY MD May 01, 2023 01:38
[2023-05-01] MEDS ORDERED: HYOSCYAMINE 0.125 MG (LEVSIN) TAB SL ONE (01:45)
[2023-05-01 01:51] LABS: ALBUMIN 3.7 GM/DL (3.2-4.5); POTASSIUM 4.3 MMOL/L (3.6-5.0)
[2023-05-01 01:53] LABS: CALCIUM 9.7 MG/DL (8.5-10.1)
[2023-05-01 01:54] LABS: TOTAL PROTEIN 6.9 GM/DL (6.4-8.2)
[2023-05-01 01:58] LABS: CREATININE SERUM 0.76 MG/DL (0.60-1.30)
[2023-05-01 02:00] LABS: MAGNESIUM 1.7 MG/DL (1.6-2.4)
[2023-05-01] MEDS ORDERED: HOLD METFORMIN - RECEIVED CONTRAST 20 ML VIAL IV SCH (02:45)
[2023-05-01] MEDS ORDERED: NS 100 ML (IVPB) BAG IV ONE (02:45)
[2023-05-01] MEDS ORDERED: IOHEXOL 350 MG/ML 100 ML (OMNIPAQUE 350) VIAL IV ONE (02:45)
[2023-05-01 04:50] VITALS: BP 126/59
[2023-05-01] MEDS: LACTATED RINGERS 1,000 ML IV SCH ×2 (05:14→15:21)
[2023-05-01] MEDS: fentaNYL INJ 100 MCG/2 ML AMP IV PRN ×4 (05:17→15:22)
[2023-05-01 06:04] LABS: BASOPHILS # (AUTO) 0.1 10^3/uL (0.0-0.1); BASOPHILS % (AUTO) 1 % (0-10); EOSINOPHILS % (AUTO) 0 % (0-10); HEMATOCRIT 37 % (35-52); HEMOGLOBIN 11.9 g/dL (11.5-16.0); LYMPHOCYTES # (AUTO) 1.7 10^3/uL (1.0-4.0); LYMPHOCYTES % (AUTO) 15 % (12-44); MEAN CORPUSCULAR HEMOGLOBIN 28 pg (25-34); MEAN CORPUSCULAR HGB CONC 32 g/dL (32-36); MEAN CORPUSCULAR VOLUME 88 fL (80-99); MEAN PLATELET VOLUME 8.7 fL (9.0-12.2); MONOCYTES # (AUTO) 0.5 10^3/uL (0.0-1.0); MONOCYTES % (AUTO) 5 % (0-12); NEUTROPHILS # (AUTO) 9.3 10^3/uL (1.8-7.8); NEUTROPHILS % (AUTO) 79 % (42-75); PLATELET COUNT 308 10^3/uL (130-400); WHITE BLOOD COUNT 11.8 10^3/uL (4.3-11.0)
--- NOTE | 2023-05-01 06:19 | Diagnostic Imaging Report ---
PROCEDURE: CT abdomen and pelvis with contrast. TECHNIQUE: Multiple contiguous axial images were obtained through the abdomen and pelvis after administration of intravenous contrast. Auto Exposure Controls were utilized during the CT exam to meet ALARA standards for radiation dose reduction. All CT scans use one or more of the following dose optimizing techniques: automated exposure control, MA and/or KvP adjustment based on patient size and exam type or iterative reconstruction. INDICATION: Diffuse abdominal pain and distention. COMPARISON: 02/25/2023. FINDINGS: Gallbladder is surgically absent. No focal hepatic, pancreatic, adrenal gland or splenic abnormality is identified. Kidneys are unremarkable. There is moderate aortic atherosclerosis. There is persistent or recurrent diffuse small bowel dilatation with decompression of the colon. The terminal ileum demonstrates moderate diffuse mural thickening suggestive of inflammation. There is no significant free fluid or organized fluid collection. Unopacified urinary bladder is unremarkable. Nonacute left pelvic fractures are again demonstrated. IMPRESSION: Diffuse small bowel dilatation with decompressed colon. Findings are suggestive of possible distal small bowel obstruction possibly at the inflamed terminal ileum. Dictated by: Dictated on workstation # [id number]
[2023-05-01 06:28] LABS: CALCIUM 8.2 MG/DL (8.5-10.1); CREATININE SERUM 0.65 MG/DL (0.60-1.30); POTASSIUM 4.2 MMOL/L (3.6-5.0)
[2023-05-01 07:31] VITALS: BP 125/61
[2023-05-01] MEDS: ONDANSETRON 4 MG/2 ML (SDV) Z0FRAN IV PRN ×3 (09:03→22:13)
[2023-05-01 11:07] VITALS: BP 111/59
[2023-05-01] MEDS ORDERED: PANT40TA52 PO (12:35)
[2023-05-01] MEDS ORDERED: ASPI-1238 PO (12:35)
[2023-05-01 17:00] VITALS: BP 114/56
[2023-05-01] MEDS ORDERED: HYDROcodone/APAP 7.5 MG/325 MG (LORTAB, LORCET PLUS) TABLET PO PRN (17:15)
--- NOTE | 2023-05-01 17:51 | HISTORY AND PHYSICAL ---
ATTENDING PRIMARY CARE PHYSICIAN: Ml Wright APRN. HISTORY OF PRESENT ILLNESS: The patient is a 62-year-old female, known to us. She presented to the Emergency Department with crampy abdominal pain, nausea, and then eventually diarrhea. She states that she has had similar symptom related to this in 12/2022, which did resolve over time. She underwent an EGD and colonoscopy at that time as well. She was found to have some inflammation of the terminal ileum, consistent with some level of inflammatory bowel disease. She was admitted again approximately on 02/25/2023 and she was found to have a significant biliary dyskinesia and underwent a laparoscopic cholecystectomy. She states that after that surgery, she did well up until this point. A CT scan was performed, which did show inflammation of the terminal ileum, again likely consistent with a terminal ileitis which again is likely consistent with an inflammatory bowel disease and more consistent with the Crohn's variety. Since being admitted, she has felt better. She states that she has had loose bowel movements and her crampy abdominal pain has improved. The findings were explained to the patient, and due to the acute inflammatory exacerbation of the inflammatory bowel disease, we will start her on prednisone 20 mg daily and start a clear liquid diet. Once she is able to tolerate this and does not have any abdominal pain and continues to have bowel function, we will advance slowly, advance her diet as tolerated. This is her third episode of symptoms related to inflammatory bowel disease and we will proceed with referral to a scanning supervisor as an outpatient for further medical management to prevent these episodes of flareups. PAST MEDICAL HISTORY: Thyroid goiter, scoliosis, gastroesophageal reflux disease, inflammatory bowel disease. PAST SURGICAL HISTORY: Laparoscopic cholecystectomy, 02/2023. ALLERGIES: CLINDAMYCIN. MEDICATIONS: Aspirin 81 mg daily, cetirizine 10 mg daily, Protonix 40 mg daily. SOCIAL HISTORY: Negative smoke, negative alcohol. FAMILY HISTORY: Noncontributory. VITAL SIGNS: Temperature 37.7, blood pressure 114/56, pulse 60, respirations 18, pulse ox 97% on room air. REVIEW OF SYSTEMS: Well-nourished female in no acute distress. She is not experiencing shortness of breath or difficulty breathing. No chest pain, palpitations, diaphoresis. Initially, she did have some nausea with associated crampy abdominal pain; however, since being admitted, she has had improvement of the abdominal pain and has not had any nausea nor vomiting and has had a few episodes of loose brown stools. No red blood per rectum, no dark tarry stools. No fever or chills, no recent inadvertent weight loss. All other review of systems negative. PHYSICAL EXAMINATION: CHEST: Clear. Good breath sounds bilaterally. HEART: Regular. No murmurs. EXTREMITIES: No lower extremity edema. Negative Homans' sign. HEENT: No scleral icterus. No cervical lymphadenopathy. ABDOMEN: Soft, nondistended. There is mild discomfort in the right lower abdominal quadrant upon deep palpation. No peritoneal signs. SKIN: Warm, dry. LABORATORY DATA: WBC 11.8, hemoglobin 11.9, hematocrit 37, platelets 308. BUN 11, creatinine 0.65. ASSESSMENT AND PLAN: A 62-year-old female with terminal ileitis and associated partial small bowel obstruction. Since being admitted and placed on IV hydration and bowel rest, she has had some resolution of her symptoms. We feel that she does have some level of Crohn's disease and this is her third episode of inflammation of the terminal ileum. We will start her on prednisone 20 mg daily and start her on a clear liquid diet as well as start her on ciprofloxacin and Flagyl, both on a b.i.d. basis, to decrease the bacterial load within the colon and terminal ileum to expedite resolution of the inflammation. Once she does have good pain control and is having normal bowel function, we will then advance her diet as tolerated and discharge her home on a tapering dose of the prednisone. She will then need an outpatient referral to Gastroenterology for further evaluation and medical therapy to prevent further flareups of the inflammatory bowel disease. Job ID: [id number] DocumentID: [id number] Dictated Date: 05/01/2023 17:26:32 Decorating Inspector Date: 05/01/2023 17:40:00 Dictated By: NETTIE FUNES MD
[2023-05-01 19:40] VITALS: BP 103/57
[2023-05-01] MEDS: metroNIDAZOLE 500MG/100ML IVPB 100 ML IV SCH (20:39)
[2023-05-01] MEDS: CIPROFLOXACIN IV 400MG/200ML 200 ML IV SCH (22:11)
[2023-05-01 23:37] VITALS: BP 104/51
[2023-05-02 03:05] VITALS: BP 111/65
[2023-05-02] MEDS: LACTATED RINGERS 1,000 ML IV SCH ×3 (03:09→20:09)
[2023-05-02 07:49] VITALS: BP 113/56
[2023-05-02] MEDS: PANTOPRAZOLE 40 MG (PROTONIX) VIAL IV SCH (08:18)
[2023-05-02] MEDS: CIPROFLOXACIN IV 400MG/200ML 200 ML IV SCH ×2 (08:19→20:09)
[2023-05-02] MEDS: metroNIDAZOLE 500MG/100ML IVPB 100 ML IV SCH ×2 (08:20→20:09)
[2023-05-02] MEDS: ONDANSETRON 4 MG/2 ML (SDV) Z0FRAN IV PRN (10:35)
[2023-05-02 11:51] VITALS: BP 104/59
--- NOTE | 2023-05-02 14:14 | Physician Query-Final Dx ---
Final Diagnosis Give Final Diagnosis Please give Final Diagnosis The medical record reflects the following clinical evidence: Clinical Indicators: RR 32 on admission, frequently 25 and above has been as high as 39, has been on oxygen since admission at 2 to 4 L, O2 sat on admission was 86% on 2 L (P/F=182), Documentation of increasing SOA, Risk Factor(s): Acute on chronic heart failure, advanced age, documentation of oxygen use at home 3 L at at bedtime only Treatment: supplemental oxygen, IV Lasix for CHF, respiratory monitoring, Acute on chronic respiratory, failure, with Hypoxia Other explanation of clinical findings Unable to determine (no explanation for clinical findings) Please clarify and document your clinical opinion in the progress notes and discharge summary including the definitive and/or presumptive diagnosis, (suspected or probable), related to the above clinical findings. Please include clinical findings supporting your diagnosis. Lulu Gallo, MSN, RN Clinical [employer] [phone] LULU GALLO May 02, 2023 14:14
[2023-05-02 16:35] VITALS: BP 127/61
[2023-05-02] MEDS: predniSONE 20 MG TAB PO SCH (17:34)
--- NOTE | 2023-05-02 17:43 | Progress Note ---
Subjective Date Seen by a Provider: May 02, 2023 Time Seen by a Provider: 17:00 Subjective/Events-last exam doing slightly better. tolerating clears. having loose BM's. abd pain much less. Focused Exam Lactate Level 05/01/23 02:50: Lactic Acid Level 0.97 Objective Exam Vital Signs Date Time Temp Pulse Resp B/P (MAP) Pulse Ox O2 Delivery O2 Flow Rate FiO2 05/02/23 16:35 36.4 56 17 127/61 (83) 99 Room Air 05/02/23 11:51 36.0 55 17 104/59 (74) 97 Room Air 05/02/23 08:00 97 Room Air 05/02/23 07:49 36.5 54 17 113/56 (75) 97 Room Air 05/02/23 03:05 36.5 69 16 111/65 (80) 95 Room Air 05/01/23 23:37 36.9 58 16 104/51 (68) 97 Room Air 05/01/23 20:00 Room Air 05/01/23 19:40 37.3 55 16 103/57 (72) 97 Room Air I & O 05/02/23 07:00 Intake Total 420 ml Balance 420 ml Capillary Refill : General Appearance: No Apparent Distress HEENT: PERRL/EOMI Neck: Full Range of Motion Respiratory: Chest Non Tender, Lungs Clear, Normal Breath Sounds Cardiovascular: Regular Rate, Rhythm Gastrointestinal: normal bowel sounds, soft, tenderness Extremity: Normal Capillary Refill Neurologic/Psychiatric: Alert, Oriented x3 Skin: Normal Color Lymphatic: No Adenopathy Assessment/Plan Assessment/Plan Assess & Plan/Chief Complaint therminal ileitis. continue with prednisone and abx. ambulate. slowly advance diet as tolerated. NETTIE FUNES MD May 02, 2023 17:43
[2023-05-02] MEDS ORDERED: METH4TAB10 PO (17:49)
[2023-05-02] MEDS ORDERED: HYDR-3817 PO (17:49)
--- NOTE | 2023-05-02 17:50 | Discharge Inst-Surgical ---
D/C Lap Instructions-KIDO New, Converted, or Re-Newed RX: RX on Chart Follow Up Appt in 2 weeks Activity as tolerated Low residue diet next 6 weeks. Avoid Alcohol, Caffeine, Spicy [place] and Acid foods. Drink 64 fluid oz or more of fluids per day. Symptoms to Report: Fever over 101 degree F, Nausea/Vomiting If any problems/questions: Contact your physician or go to Emergency Room NETTIE FUNES MD May 02, 2023 17:50
[2023-05-02 19:55] VITALS: BP 118/55
[2023-05-02 23:30] VITALS: BP 100/50
[2023-05-03] MEDS: LACTATED RINGERS 1,000 ML IV SCH (02:03)
[2023-05-03 04:00] VITALS: BP 108/52
[2023-05-03] MEDS: predniSONE 20 MG TAB PO SCH (05:59)
[2023-05-03] MEDS: CIPROFLOXACIN IV 400MG/200ML 200 ML IV SCH (08:01)
[2023-05-03] MEDS: PANTOPRAZOLE 40 MG (PROTONIX) VIAL IV SCH (08:01)
[2023-05-03] MEDS: metroNIDAZOLE 500MG/100ML IVPB 100 ML IV SCH (08:01)
[2023-05-03 08:49] VITALS: BP 122/71
[2023-05-03 12:04] VITALS: BP 105/63
--- NOTE | 2023-05-03 15:14 | Progress Note ---
Subjective Date Seen by a Provider: May 03, 2023 Time Seen by a Provider: 15:00 Subjective/Events-last exam Patient seen with Dr. Kumar. Patient reports tolerating diet with no abdominal pain, nausea, or vomiting. Reports was having BMs yesterday but none yet today. Focused Exam Lactate Level 05/01/23 02:50: Lactic Acid Level 0.97 Objective Exam Vital Signs Date Time Temp Pulse Resp B/P (MAP) Pulse Ox O2 Delivery O2 Flow Rate FiO2 05/03/23 12:04 36.7 53 18 105/63 (77) 96 Room Air 05/03/23 08:49 36.7 52 18 122/71 (88) 99 Room Air 05/03/23 08:00 97 Room Air 05/03/23 04:00 36.4 58 16 108/52 (70) 99 Room Air 05/02/23 23:30 36.0 55 16 100/50 (67) 99 Room Air 05/02/23 20:00 Room Air 05/02/23 19:55 37.1 58 16 118/55 (76) 96 Room Air 05/02/23 16:35 36.4 56 17 127/61 (83) 99 Room Air I & O 05/03/23 06:59 Intake Total 1440 ml Balance 1440 ml Capillary Refill : General Appearance: No Apparent Distress, WD/WN Neck: Normal Inspection, Supple Respiratory: No Accessory Muscle Use, No Respiratory Distress Gastrointestinal: normal bowel sounds, non tender, soft Neurologic/Psychiatric: Alert, Oriented x3 Skin: Normal Color, Warm/Dry Assessment/Plan Assessment/Plan Assess & Plan/Chief Complaint terminal ileitis. continue with prednisone and abx. ambulate. slowly advance diet as tolerated. Will DC home and have her follow up in 2 weeks. MICHAEL BAH HIGHER LEVEL TEACHING ASSISTANT May 03, 2023 15:14
[2023-05-03 15:52] VITALS: BP 107/62
== END 2023-05-03 16:35 | disposition home or self-care (01) | DRG 387 ==
LOC: EDUNIT# 01:13 → ER 01:15 → 4TH 04:30
PROVIDERS: ADMIT Surgery; ATTEND Surgery
DX: K50.012 Crohn's disease of small intestine with intestinal obstruction (principal); K21.9 Gastro-esophageal reflux disease without esophagitis; M41.9 Scoliosis, unspecified; Z88.1 Allergy status to other antibiotic agents; Z79.899 Other long term (current) drug therapy; Z79.891 Long term (current) use of opiate analgesic
CPT/HCPCS: 36415; 74177; 80048; 80053; 83605; 83690; 83735; 85025; 86141

== ENCOUNTER 2023-05-12 06:56 | Observation (INO) | payer BC ==
[~2023-05-12] VITALS: Ht 180.3 cm; Wt 46.9 kg
[~2023-05-12 06:56] MED LIST changes: +ASPI-1238 PO; +HYDR-3817 PO; +METH4TAB10 PO; +PANT40TA52 PO
[2023-05-12] MEDS ORDERED: LACTATED RINGERS 1,000 ML IV ONE (07:30)
[2023-05-12] MEDS ORDERED: ONDANSETRON 4 MG/2 ML (SDV) Z0FRAN IVP ONE (07:30)
[2023-05-12] MEDS ORDERED: fentaNYL INJECTION 100 MCG/2 ML VIAL IVP ONE (07:30)
[2023-05-12] MEDS ORDERED: POTASSIUM CHLORIDE 10 MEQ TABLET PO ONE (07:45)
[2023-05-12 07:48] LABS: BASOPHILS # (AUTO) 0.1 10^3/uL (0.0-0.1); BASOPHILS % (AUTO) 1 % (0-10); EOSINOPHILS % (AUTO) 0 % (0-10); HEMATOCRIT 48 % (35-52); LYMPHOCYTES # (AUTO) 1.4 10^3/uL (1.0-4.0); LYMPHOCYTES % (AUTO) 13 % (12-44); MEAN CORPUSCULAR HEMOGLOBIN 28 pg (25-34); MEAN CORPUSCULAR HGB CONC 32 g/dL (32-36); MEAN CORPUSCULAR VOLUME 90 fL (80-99); MONOCYTES # (AUTO) 0.7 10^3/uL (0.0-1.0); MONOCYTES % (AUTO) 7 % (0-12); NEUTROPHILS # (AUTO) 8.8 10^3/uL (1.8-7.8); NEUTROPHILS % (AUTO) 80 % (42-75); PLATELET COUNT 372 10^3/uL (130-400)
[2023-05-12 07:58] LABS: ALBUMIN 3.8 GM/DL (3.2-4.5); POTASSIUM 4.1 MMOL/L (3.6-5.0)
[2023-05-12 07:59] LABS: CALCIUM 9.1 MG/DL (8.5-10.1)
[2023-05-12 08:00] LABS: TOTAL PROTEIN 7.4 GM/DL (6.4-8.2)
[2023-05-12 08:02] LABS: BILIRUBIN,TOTAL 2.6 MG/DL (0.1-1.0)
[2023-05-12 08:04] LABS: CREATININE SERUM 0.85 MG/DL (0.60-1.30)
[2023-05-12] MEDS ORDERED: NS 100 ML (IVPB) BAG IV ONE (08:45)
[2023-05-12] MEDS ORDERED: IOHEXOL 350 MG/ML 100 ML (OMNIPAQUE 350) VIAL IV ONE (08:45)
[2023-05-12] MEDS ORDERED: HOLD METFORMIN - RECEIVED CONTRAST 20 ML VIAL IV SCH (08:45)
--- NOTE | 2023-05-12 08:52 | ED Abdominal Pain ---
General Chief Complaint: Abdominal/GI Problems Stated Complaint: ABD PX,NAUSEA Nursing Triage Note: Pt complains of Nausea, vomiting and abd pain since yesterday Source of Information: Patient, Family, Old Records, Other (Dr. Kumar) Exam Limitations: No Limitations History of Present Illness Date Seen by Provider: May 12, 2023 Time Seen by Provider: 07:10 Initial Comments This 62-year-old woman presents to the emergency room via private vehicle with complaints of left-sided abdominal pain, nausea, and vomiting. She was recently admitted to the hospital May 01 through with concerns about possible small bowel obstruction. Dr. Kumar was consulted. Ultimately, it did not appear that she had an actual obstruction but likely had inflammatory bowel disease. She was treated with steroids, Cipro, and Flagyl. She was discharged on oral medications and is scheduled for follow-up with Dr. Kumar on May 18. There has been discussion of referral to [facility] gastroenterology for further evaluation. She had cholecystectomy in February. She did have a colonoscopy in January with Dr. Antony as well. She attempted taking Zofran 4 mg sublingual and hydrocodone at home but believes she promptly vomited these medications. She has had some constipation recently. She is afebrile. She has a bilious emesis in a basin during my interview and exam. She was started on mesalamine upon discharge from the hospital on May 03. She has been taking it except for yesterday and today. She skipped those doses due to her GI symptoms. Allergies and Home Medications Allergies Coded Allergies: clindamycin (Unverified Allergy, Intermediate, 11/30/22) "CHEST PAIN AND PRESSURE" Patient Home Medication List Home Medication List Reviewed: Yes Aspirin (Aspirin EC) 81 Mg Tablet., 81 MG PO DAILY, (Reported) Entered as Reported by: GENARO COLEMAN on 05/01/23 1235 Bacillus Coagulans (Probiotic) 10 Billion Cell Capsule., 1 EACH PO DAILY, (Reported) Entered as Reported by: MJ HIRSCH on 02/19/23 1103 Cetirizine HCl (Zyrtec) 10 Mg Tablet, 10 MG PO DAILY, (Reported) Entered as Reported by: MJ HIRSCH on 02/19/23 1102 Hydrocodone/Acetaminophen (Hydrocodone-Acetamin 7.5-325) 7.5 Mg-325 Mg Tablet, 1 EACH PO Q4H PRN for PAIN-BREAKTHROUGH Prescribed by: NETTIE KUMAR on 05/02/231748 Methylprednisolone (Methylprednisolone Dose Pack) 4 Mg Tab.ds.pk, 4 MG PO UD Prescribed by: NETTIE KUMAR on 05/02/231748 Pantoprazole Sodium (Pantoprazole Sodium) 40 Mg Tablet.dr, 40 MG PO DAILY, (Reported) Entered as Reported by: GENARO COLEMAN on 05/01/23 1235 Review of Systems Review of Systems Constitutional: no symptoms reported EENTM: No Symptoms Reported Respiratory: No Symptoms Reported Cardiovascular: No Symptoms Reported Gastrointestinal: See HPI Genitourinary: No Symptoms Reported Musculoskeletal: no symptoms reported Skin: no symptoms reported Psychiatric/Neurological: No Symptoms Reported Endocrine: No Symptoms Reported Hematologic/Lymphatic: No Symptoms Reported Past Jxurcuk-Dsavyw-Eozalj Hx Seasonal Allergies Seasonal Allergies: Yes Past Medical History Surgery/Hospitalization HX: RT THYROID GOITER Surgeries: Yes (Colonoscopy) Gallbladder, Thyroidectomy (Partial) Respiratory: No Cardiac: No 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 oz. [id number]; 14.00 BMI Method:Stated General Appearance: WD/WN, moderate distress, thin HEENT: PERRL/EOMI, normal ENT inspection, other (Oropharynx somewhat dry) Neck: normal inspection Respiratory: lungs clear, normal breath sounds, no respiratory distress Cardiovascular: regular rate, rhythm, no edema, no murmur Gastrointestinal: normal bowel sounds, soft; No distended; tenderness (Moderate throughout the left abdomen, mild in the right abdomen) Extremities: normal inspection, no pedal edema Neurologic/Psychiatric: no motor/sensory deficits, alert, normal mood/affect, oriented x 3 Skin: normal color, warm/dry Progress/Results/Core Measures Results/Orders Lab Results Laboratory Tests Test 05/12/23 07:17 05/12/23 09:30 Range/Units White Blood Count 11.0 4.3-11.0 10^3/uL Red Blood Count 5.31 H 3.80-5.11 10^6/uL Hemoglobin 15.0 11.5-16.0 g/dL Hematocrit 48 35-52 % Mean Corpuscular Volume 90 80-99 fL Mean Corpuscular Hemoglobin 28 25-34 pg Mean Corpuscular Hemoglobin Concent 32 32-36 g/dL Red Cell Distribution Width 14.2 10.0-14.5 % Platelet Count 372 130-400 10^3/uL Mean Platelet Volume 9.0 9.0-12.2 fL Immature Granulocyte % (Auto) 0 % Neutrophils (%) (Auto) 80 H 42-75 % Lymphocytes (%) (Auto) 13 12-44 % Monocytes (%) (Auto) 7 0-12 % Eosinophils (%) (Auto) 0 0-10 % Basophils (%) (Auto) 1 0-10 % Neutrophils # (Auto) 8.8 H 1.8-7.8 10^3/uL Lymphocytes # (Auto) 1.4 1.0-4.0 10^3/uL Monocytes # (Auto) 0.7 0.0-1.0 10^3/uL Eosinophils # (Auto) 0.0 0.0-0.3 10^3/uL Basophils # (Auto) 0.1 0.0-0.1 10^3/uL Immature Granulocyte # (Auto) 0.0 0.0-0.1 10^3/uL Sodium Level 134 L 135-145 MMOL/L Potassium Level 4.1 3.6-5.0 MMOL/L Chloride Level 97 L 98-107 MMOL/L Carbon Dioxide Level 19 L 21-32 MMOL/L Anion Gap 18 H 5-14 MMOL/L Blood Urea Nitrogen 31 H 7-18 MG/DL Creatinine 0.85 0.60-1.30 MG/DL Estimat Glomerular Filtration Rate 78 BUN/Creatinine Ratio 36 Glucose Level 177 H 70-105 MG/DL Calcium Level 9.1 8.5-10.1 MG/DL Corrected Calcium 9.3 8.5-10.1 MG/DL Magnesium Level 2.0 1.6-2.4 MG/DL Total Bilirubin 2.6 H 0.1-1.0 MG/DL Aspartate Amino Transf (AST/SGOT) 1053 H 5-34 U/L Alanine Aminotransferase (ALT/SGPT) 375 H 0-55 U/L Alkaline Phosphatase 248 H 40-136 U/L C-Reactive Protein High Sensitivity 5.91 H 0.00-0.50 MG/DL Total Protein 7.4 6.4-8.2 GM/DL Albumin 3.8 3.2-4.5 GM/DL Lipase 12 8-78 U/L Urine Color RHONDA H Urine Clarity CLEAR Urine pH 7.5 5-9 Urine Specific [place] 1.005 L 1.016-1.022 Urine Protein TRACE NEGATIVE Urine Glucose (UA) NEGATIVE NEGATIVE Urine Ketones NEGATIVE NEGATIVE Urine Nitrite NEGATIVE NEGATIVE Urine Bilirubin NEGATIVE NEGATIVE Urine Urobilinogen 0.2 < = 1.0 MG/DL Urine Leukocyte Esterase NEGATIVE NEGATIVE Urine RBC (Auto) NEGATIVE NEGATIVE Urine RBC NONE /HPF Urine WBC RARE /HPF Urine Squamous Epithelial Cells RARE /HPF Urine Crystals NONE /LPF Urine Bacteria NEGATIVE /HPF Urine Casts NONE /LPF Urine Mucus NEGATIVE /LPF Urine Culture Indicated NO My Orders Orders - MIGUEL JONES MD Ua Culture If Indicated (05/12/23 07:10) Ondansetron Injection (Zofran Injectio (05/12/23 07:30) Fentanyl Inj (Sublimaze Injection) (05/12/23 07:30) Ed Iv/Invasive Line Start (05/12/23 07:27) Lactated Ringers (Lr 1000 Ml Iv Solution (05/12/23 07:30) Cbc With Automated Diff (05/12/23 07:31) Comprehensive Metabolic Panel (05/12/23 07:31) Hs C Reactive Protein (05/12/23 07:31) Lipase (05/12/23 07:31) Magnesium (05/12/23 07:31) Potassium Chloride (Tablet) (Klor Con Ta (05/12/23 07:45) Ct Abdomen/Pelvis W (05/12/23 08:27) Hepatitis Panel Acute (05/12/23 08:27) Iohexol Injection (Omnipaque 350 Mg/Ml 1 (05/12/23 08:45) Received Contrast (Hold Metformin- Contr (05/12/23 08:45) Ns (Ivpb) 100 Ml (Sodium Chloride 0.9% 1 (05/12/23 08:45) Morphine Injection (Morphine Injection (05/12/23 09:30) Promethazine Injection (Phenergan Injec (05/12/23 09:30) Us Hepatic (Liver)54859 (05/12/23 10:59) Methylprednisolone Sod Succ (Solu-Medrol (05/12/23 11:30) Ciprofloxacin Iv 400mg/200ml (Ciprofloxa (05/12/23 11:30) Medications Given in ED Current Medications Medications Dose Ordered Sig/Андрей Route Start Time Stop Time Status Last Admin Dose Admin Ciprofloxacin/ Dextrose 200 ml @ 200 mls/hr ONCE ONCE IV 05/12/23 11:30 05/12/23 12:29 DC 05/12/23 12:56 200 MLS/HR Fentanyl Citrate 50 mcg ONCE ONCE IVP 05/12/23 07:30 05/12/23 07:31 DC 05/12/23 07:51 50 MCG Iohexol 100 ml ONCE ONCE IV 05/12/23 08:45 05/12/23 08:46 DC 05/12/23 08:48 56 ML Lactated Ringer's 1,000 ml @ 0 mls/hr Q0M ONCE IV 05/12/23 07:30 05/12/23 07:31 DC 05/12/23 07:50 0 MLS/HR Methylprednisolone Sodium Succinate 125 mg ONCE ONCE IVP 05/12/23 11:30 05/12/23 11:31 DC 05/12/23 12:53 125 MG Morphine Sulfate 4 mg ONCE ONCE IVP 05/12/23 09:30 05/12/23 09:31 DC 05/12/23 09:25 4 MG Ondansetron HCl 4 mg ONCE ONCE IVP 05/12/23 07:30 05/12/23 07:31 DC 05/12/23 07:50 4 MG Potassium Chloride 20 meq ONCE ONCE PO 05/12/23 07:45 05/12/23 07:46 DC 05/12/23 07:54 20 MEQ Promethazine HCl 25 mg ONCE ONCE IVP 05/12/23 09:30 05/12/23 09:31 DC 05/12/23 09:25 25 MG Sodium Chloride 100 ml ONCE ONCE IV 05/12/23 08:45 05/12/23 08:46 DC 05/12/23 08:48 100 ML Vital Signs/I&O 05/12/23 07:29 Temp 35.6 Pulse 97 Resp 16 B/P (MAP) 147/67 (93) Pulse Ox 98 O2 Delivery Room Air Blood Pressure Mean: 93 Progress Progress Note #1: Time: 08:30 Progress Note Patient was treated with Zofran and fentanyl. Labs were obtained, reviewed and interpreted by me. CBC revealed no clinically significant abnormalities. CMP was remarkable for glucose of 177, bilirubin of 2.6, AST of 1053, ALT of 375, and alk phos of 248. These transaminase elevations represent a significant inc rease from prior when compared. CRP was minimally elevated at 5.9. Due to the significant change in labs and significant symptoms, CT abdomen pelvis with contrast was repeated. PA student, Tracy Berrios assisted with review of chart from prior visits and reported to me. Progress Note #2: Time: 08:50 Progress Note Patient has been treated with Zofran, IV fluids, and fentanyl. Labs have been reviewed, interpreted by me, and compared with prior. CBC was grossly unremarkable. CMP, however, was significantly abnormal with markedly elevated transaminases and mildly elevated bilirubin. Lipase was unremarkable. Remainder of CMP showed no clinically relevant abnormalities. CT abdomen pelvis with contrast is now being obtained for further evaluation. A hepatitis panel is also being obtained. Disposition and further treatment will be based on findings of the CT and surgical consult. Progress Note #3: Time: 11:00 Progress Note Patient had rebound pain and nausea which was treated with Phenergan and morphine. She was much more comfortable after those therapies. IV hydration was complete. CT report was reviewed. There was again concern for possible small bowel obstruction versus inflammatory bowel disease. I discussed with Dr. Kumar, general surgeon on-call. He recommended admission for observation and treatment with Solu-Medrol, Cipro, and Flagyl for probable inflammatory bowel disease. Patient was agreeable to admission and grateful for her improved symptoms. We discussed CODE STATUS and she confirms remaining full code. Bridging orders were written on behalf of Dr. Kumar. Diagnostic Imaging Diagonstic Imaging: CT Plain Films/CT/US/NM/MRI: abdomen, pelvis Comments NAME: NIETOLISASarah Ochoa MED REC#: [id number] PT STATUS: REG ER : 1960 PHYSICIAN: MIGUEL JONES MD ADMIT DATE: 05/12/23/ER Signed Date of Exam:05/12/23 CT ABDOMEN/PELVIS W EXAMINATION: CT abdomen and pelvis with intravenous contrast. TECHNIQUE: Multiple contiguous axial images were obtained through the abdomen and pelvis after the uneventful administration of intravenous contrast. All CT scans use one or more of the following dose optimizing techniques: automated exposure control, MA and/or KvP adjustment based on patient size and exam type or iterative reconstruction. HISTORY: Abdominal pain. Elevated liver enzymes. COMPARISON: 05/01/2023. FINDINGS: The heart is unremarkable. The included lung bases are clear. The liver, spleen, pancreas, adrenal glands, and kidneys have a normal appearance. The gallbladder is surgically absent. There is no pathologically enlarged mesenteric or retroperitoneal adenopathy. Fluid-filled dilated loops of small bowel are again seen throughout the abdomen and pelvis. There is wall thickening and hyperemia involving the distal/terminal ileum. There is no free fluid or free air. No acute osseous abnormalities. There is calcified aortic and iliac atherosclerotic plaque without aneurysm. Ureters and bladder are grossly normal. There is no free air, loculated collection, or adenopathy in the pelvis. IMPRESSION: 1. Persistent dilated loops of small bowel in the abdomen and pelvis, concerning for obstruction. There is also persistent wall thickening and hyperemia involving the distal/terminal ileum. This appearance can be seen with inflammatory bowel disease such as Crohn's. Recommend correlation with patient history and symptoms and follow-up as indicated. Dictated by: Dictated on workstation # [id number] Dict: 05/12/23 0854 Trans: 05/12/2314 [facility] [id number] Interpreted by: CODEY CHAVEZ DO Electronically signed by: CODEY CHAVEZ DO 05/12/23 0914 Departure Communication (Admissions) Time/Spoke to Admitting Phy: 10:55 Dr. Kumar Impression Primary Impression: Generalized abdominal pain Additional Impressions: Nausea & vomiting Qualified Codes: R11.2 - Nausea with vomiting, unspecified Possible inflammatory bowel disease Disposition: ADMITTED INPATIENT Condition: Improved Admissions Decision to Admit Reason: Admit from ER (General) Decision to Admit/Date: May 12, 2023 Time/Decision to Admit Time: 10:55 Departure-Patient Inst. Referrals: [facility]/ANGELICA (PCP) Primary Care Physician ZAC SUTHERLAND (Family) Primary Care Physician Copy Copies To 1: NETTIE KUMAR MD, JOSHUA T MD May 12, 2023 08:52
--- NOTE | 2023-05-12 09:03 | Diagnostic Imaging Report ---
EXAMINATION: CT abdomen and pelvis with intravenous contrast. TECHNIQUE: Multiple contiguous axial images were obtained through the abdomen and pelvis after the uneventful administration of intravenous contrast. All CT scans use one or more of the following dose optimizing techniques: automated exposure control, MA and/or KvP adjustment based on patient size and exam type or iterative reconstruction. HISTORY: Abdominal pain. Elevated liver enzymes. COMPARISON: 05/01/2023. FINDINGS: The heart is unremarkable. The included lung bases are clear. The liver, spleen, pancreas, adrenal glands, and kidneys have a normal appearance. The gallbladder is surgically absent. There is no pathologically enlarged mesenteric or retroperitoneal adenopathy. Fluid-filled dilated loops of small bowel are again seen throughout the abdomen and pelvis. There is wall thickening and hyperemia involving the distal/terminal ileum. There is no free fluid or free air. No acute osseous abnormalities. There is calcified aortic and iliac atherosclerotic plaque without aneurysm. Ureters and bladder are grossly normal. There is no free air, loculated collection, or adenopathy in the pelvis. IMPRESSION: 1. Persistent dilated loops of small bowel in the abdomen and pelvis, concerning for obstruction. There is also persistent wall thickening and hyperemia involving the distal/terminal ileum. This appearance can be seen with inflammatory bowel disease such as Crohn's. Recommend correlation with patient history and symptoms and follow-up as indicated. Dictated by: Dictated on workstation # [id number]
[2023-05-12] MEDS ORDERED: morphine INJ 4 MG/ML 1 ML (VIAL/SYRINGE) IVP ONE (09:30)
[2023-05-12] MEDS ORDERED: PROMETHAZINE INJ 25 MG/ML (PHENERGAN) AMP IVP ONE (09:30)
[2023-05-12 11:12] LABS: CLARITY,URINE CLEAR; COLOR,URINE AMBER; GLUCOSE, URINE (UA) NEGATIVE (NEGATIVE); KETONES,URINE NEGATIVE (NEGATIVE); PH,URINE 7.5 (5-9); PROTEIN,URINE TRACE (NEGATIVE)
[2023-05-12 11:13] LABS: BACTERIA,URINE NEGATIVE /HPF; BILIRUBIN,URINE NEGATIVE (NEGATIVE); LEUKOCYTE ESTERASE ,URINE NEGATIVE (NEGATIVE); NITRITE,URINE NEGATIVE (NEGATIVE); SQUAMOUS EPITHELIAL CELL,UR RARE /HPF; WBC,URINE RARE /HPF
[2023-05-12] MEDS ORDERED: methylPREDNISolone 125 MG (Solu-MEDROL) VIAL IVP ONE (11:30)
[2023-05-12] MEDS ORDERED: CIPROFLOXACIN IV 400MG/200ML 200 ML IV ONE (11:30)
[2023-05-12] MEDS ORDERED: metroNIDAZOLE 500 MG/100 ML IVPB (PRE-MIX) IV SCH (13:00)
[2023-05-12] MEDS ORDERED: ONDANSETRON 4 MG/2 ML (SDV) Z0FRAN IV PRN (13:00)
[2023-05-12] MEDS ORDERED: morphine INJ 4 MG/ML 1 ML (VIAL/SYRINGE) IV PRN (13:00)
[2023-05-12] MEDS ORDERED: PROMETHAZINE INJ 25 MG/ML (PHENERGAN) AMP IV PRN (13:00)
[2023-05-12 13:06] VITALS: BP 129/72
[2023-05-12] MEDS: PANTOPRAZOLE 40 MG (PROTONIX) VIAL IV SCH (14:03)
[2023-05-12] MEDS: LACTATED RINGERS 1,000 ML IV SCH ×2 (14:09→19:53)
[2023-05-12 15:50] VITALS: BP 112/67
[2023-05-12] MEDS ORDERED: HYDROcodone/ACETAMINOPHEN 7.5 MG/325 MG TABLET PO PRN (18:30)
--- NOTE | 2023-05-12 19:41 | HISTORY AND PHYSICAL ---
DATE OF SERVICE: 05/12/2023 ATTENDING PRIMARY CARE PHYSICIAN: Rajani Wright APRN HISTORY OF PRESENT ILLNESS: The patient is a 62-year-old female known to us. She presented to the Emergency Department by private vehicle due to a left sided crampy abdominal pain and episodes of nausea and vomiting. She has had several other episodes in the past several months as well. She was recently admitted on 04/2023 for the similar type of symptoms. A CT scan was performed, which did show inflammation of the terminal ileum, likely consistent with an bowel disease. She was treated with steroids as well as antibiotics and this did allow her symptoms to improve and she had adequate pain control and was able to tolerate a low residue diet and having normal bowel function. The patient was also started on mesalamine after that admission. We had also discussed a referral to [facility] for a gastroenterology referral. She again developed similar type of symptoms with nausea and vomiting and crampy abdominal pain; however, no systemic symptoms of fever, no chills. PAST MEDICAL HISTORY: Scoliosis, gastroesophageal reflux disease, inflammatory bowel disease, thyroid goiter. PAST SURGICAL HISTORY: Partial thyroidectomy, laparoscopic cholecystectomy. ALLERGIES: CLINDAMYCIN. MEDICATIONS: Aspirin 81 mg daily, Protonix 40 mg daily, cetirizine 10 mg daily, 5-aminosalicylic acid 800 mg p.o. t.i.d. SOCIAL HISTORY: Negative smoke, negative alcohol. FAMILY HISTORY: Noncontributory. VITAL SIGNS: Temperature 36.9, blood pressure 112/67, pulse 65, respirations 16, pulse ox 94% on room air. REVIEW OF SYSTEMS: A well-nourished female, currently guarded secondary to the crampy abdominal pain as well as nausea. She does not report any hematemesis, no coffee-ground emesis. She has had some liquid stools. No red blood per rectum, no dark tarry stools. No fever, chills, no recent inadvertent weight loss. All other review of systems negative. PHYSICAL EXAMINATION: CHEST: Clear. Good breath sounds bilaterally. HEART: Regular. No murmurs. EXTREMITIES: No lower extremity edema. Negative Homans sign. HEENT: No scleral icterus. No cervical lymphadenopathy. ABDOMEN: Soft, slightly distended with discomfort, more on the left lateral portion of the abdomen. No peritoneal signs. No hernias. SKIN: Warm, dry. LABORATORY DATA: WBC 11.0, hemoglobin 15.0, hematocrit 48, platelets 372. BUN 31, creatinine 0.85, total bilirubin 2.6. ASSESSMENT AND PLAN: A 62-year-old female with inflammatory bowel disease with signs and symptoms likely consistent with Crohn's disease. She has had several episodes similar to this, which have resolved with conservative medical therapy. She was just recently admitted and discharged home for similar symptoms; however, has had reoccurrence. Again, we will proceed with conservative management with bowel rest, IV hydration as well as steroids and antibiotics. Due to recurrent symptomatology as well we will proceed with more of an urgent referral to gastroenterology at [facility]. We will also get an ultrasound of the liver and biliary tree due to the elevation in the total bilirubin as well as the elevated liver function enzymes. Job ID: [id number] DocumentID: [id number] Dictated Date: 05/12/2023 18:37:13 Morning Show Producer Date: 05/12/2023 19:38:00 Dictated By: NETTIE FUNES MD
[2023-05-12 19:47] VITALS: BP 98/55
[2023-05-12] MEDS: metroNIDAZOLE 500 MG/100 ML IVPB (PRE-MIX) IV SCH (19:49)
--- NOTE | 2023-05-12 19:50 | Diagnostic Imaging Report ---
EXAMINATION: US abdomen limited. TECHNIQUE: Multiple real-time grayscale images were obtained over the right upper quadrant in various projections. HISTORY: Acute hepatitis. COMPARISON: 02/26/2023. FINDINGS: Pancreas: The visualized portions of the pancreas are normal. Liver: The liver is normal in echogenicity and contour. No focal lesion is seen. The portal vein is patent with hepatopetal flow. Gallbladder and biliary tree: The gallbladder is surgically absent. There is no biliary ductal dilation. The common duct measures 0.4 cm. Right kidney: The right kidney is normal without hydronephrosis. Aorta and IVC: The visualized aorta and inferior vena cava are normal. Fluid: No ascites is seen. IMPRESSION: Unremarkable right upper quadrant ultrasound. Dictated by: Dictated on workstation # [id number]
[2023-05-12] MEDS: CIPROFLOXACIN 400 MG/D5W 200 ML (PRE-MIX) IV SCH (21:04)
[2023-05-12 23:16] VITALS: BP 116/56
[2023-05-13] MEDS: metroNIDAZOLE 500 MG/100 ML IVPB (PRE-MIX) IV SCH ×3 (01:36→13:26)
[2023-05-13 03:30] VITALS: BP 95/52
[2023-05-13 05:13] LABS: BASOPHILS % (AUTO) 0 % (0-10); EOSINOPHILS % (AUTO) 0 % (0-10); HEMATOCRIT 36 % (35-52); HEMOGLOBIN 11.5 g/dL (11.5-16.0); LYMPHOCYTES # (AUTO) 0.8 10^3/uL (1.0-4.0); LYMPHOCYTES % (AUTO) 15 % (12-44); MEAN CORPUSCULAR HGB CONC 32 g/dL (32-36); MEAN CORPUSCULAR VOLUME 88 fL (80-99); MEAN PLATELET VOLUME 9.1 fL (9.0-12.2); MONOCYTES # (AUTO) 0.3 10^3/uL (0.0-1.0); MONOCYTES % (AUTO) 5 % (0-12); NEUTROPHILS # (AUTO) 4.3 10^3/uL (1.8-7.8); NEUTROPHILS % (AUTO) 79 % (42-75); PLATELET COUNT 252 10^3/uL (130-400); WHITE BLOOD COUNT 5.5 10^3/uL (4.3-11.0)
[2023-05-13 05:19] LABS: MEAN CORPUSCULAR HEMOGLOBIN 28 pg (25-34)
[2023-05-13] MEDS: LACTATED RINGERS 1,000 ML IV SCH ×2 (05:20→13:26)
[2023-05-13 05:37] LABS: ALBUMIN 2.9 GM/DL (3.2-4.5); BILIRUBIN,TOTAL 0.7 MG/DL (0.1-1.0); CALCIUM 8.5 MG/DL (8.5-10.1); CREATININE SERUM 0.62 MG/DL (0.60-1.30); TOTAL PROTEIN 5.4 GM/DL (6.4-8.2)
[2023-05-13] MEDS ORDERED: predniSONE 20 MG TAB PO ONE ×2 (07:00→11:15)
[2023-05-13 07:49] VITALS: BP 101/63
[2023-05-13] MEDS: PANTOPRAZOLE 40 MG (PROTONIX) VIAL IV SCH (09:04)
--- NOTE | 2023-05-13 10:31 | Progress Note ---
Subjective Date Seen by a Provider: May 13, 2023 Time Seen by a Provider: 10:10 Subjective/Events-last exam Patient was seen with Dr. Kumar. Patient reports pain is better but still there. No nausea or vomiting. Passing flatus. Tolerating clear liquid diet. Objective Exam Vital Signs Date Time Temp Pulse Resp B/P (MAP) Pulse Ox O2 Delivery O2 Flow Rate FiO2 05/13/23 07:49 37.1 57 20 101/63 (76) 99 Room Air 05/13/23 03:30 36.1 55 16 95/52 (66) 98 Room Air 05/12/23 23:16 36.6 62 18 116/56 (76) 97 Room Air 05/12/23 19:47 37.3 67 18 98/55 (69) 96 Room Air 05/12/23 19:45 Room Air 05/12/23 15:50 36.9 65 16 112/67 (82) 94 Room Air 05/12/23 13:17 Room Air 05/12/23 13:06 37.0 84 18 129/72 (91) 97 Room Air 05/12/23 12:31 36.5 90 16 115/69 99 Room Air I & O 05/13/23 06:59 Intake Total 2340 ml Output Total 650 ml Balance 1690 ml Capillary Refill : Less Than 3 Seconds General Appearance: No Apparent Distress, WD/WN Neck: Normal Inspection, Supple Respiratory: No Accessory Muscle Use, No Respiratory Distress Gastrointestinal: normal bowel sounds, soft, tenderness (Right side) Extremity: Normal Inspection, Normal Range of Motion Neurologic/Psychiatric: Alert, Oriented x3 Skin: Normal Color, Warm/Dry Results Lab Laboratory Tests 05/13/23 05:03: White Blood Count 5.5, Red Blood Count 4.04, Hemoglobin 11.5#, Hematocrit 36, Mean Corpuscular Volume 88, Mean Corpuscular Hemoglobin 28, Mean Corpuscular Hemoglobin Concent 32, Red Cell Distribution Width 14.0, Platelet Count 252, Mean Platelet Volume 9.1, Immature Granulocyte % (Auto) 1, Neutrophils (%) (Auto) 79H, Lymphocytes (%) (Auto) 15, Monocytes (%) (Auto) 5, Eosinophils (%) (Auto) 0, Basophils (%) (Auto) 0, Neutrophils # (Auto) 4.3, Lymphocytes # (Auto) 0.8L, Monocytes # (Auto) 0.3, Eosinophils # (Auto) 0.0, Basophils # (Auto) 0.0, Immature Granulocyte # (Auto) 0.0, Sodium Level 137, Potassium Level 5.0, Chloride Level 105, Carbon Dioxide Level 25, Anion Gap 7, Blood Urea Nitrogen 12, Creatinine 0.62, Estimat Glomerular Filtration Rate 101, BUN/Creatinine Ratio 19, Glucose Level 133H, Calcium Level 8.5, Corrected Calcium 9.4, Total Bilirubin 0.7, Aspartate Amino Transf (AST/SGOT) 119H, Alanine Aminotransferase (ALT/SGPT) 165H, Alkaline Phosphatase 140H, Total Protein 5.4L, Albumin 2.9L, Lipase 21 Assessment/Plan Assessment/Plan Assess & Plan/Chief Complaint A 62 year old female with inflammatory bowel disease most likely crohn's disease VSS WBC 5.5 Will advance to soft diet Increase prednisone to 40mg daily Continue abx, pain and anti-nausea meds MICHAEL BAH LASER PRINT OPERATOR May 13, 2023 10:31
[2023-05-13] MEDS: CIPROFLOXACIN 400 MG/D5W 200 ML (PRE-MIX) IV SCH (10:36)
[2023-05-13] MEDS ORDERED: METR-145 PO (10:41)
[2023-05-13] MEDS ORDERED: CIPR500T5 PO (10:41)
--- NOTE | 2023-05-13 10:42 | Discharge Inst-Surgical ---
D/C Lap Instructions-KIDO Reconcile Patient Problems Problems Reviewed?: Yes New, Converted, or Re-Newed RX: RX on Chart Follow Up Appt in 1 week Activity as tolerated No driving while on pain medications High Fiber Diet 25g or more per day Avoid Alcohol, Caffeine, Spicy Noonday and Acid foods. Drink 64 fluid oz or more of fluids per day. Symptoms to Report: Fever over 101 degree F, Nausea/Vomiting If any problems/questions: Contact your physician or go to Emergency Room MICHAEL BAH NUCLEAR MEDICINE PHYSICIAN May 13, 2023 10:42
[2023-05-13] MEDS ORDERED: PRD20T PO ×2 (10:57→14:09)
[2023-05-13 11:46] VITALS: BP 131/83
[2023-05-14] MEDS ORDERED: predniSONE 20 MG TAB PO SCH ×2 (07:00)
[2023-05-14] MEDS ORDERED: predniSONE 20 MG TAB PO ONE (07:00)
[2023-05-14 13:51] LABS: HEPATITIS C ANTIBODY C Non-Reactive (Non-Reactive)
== END 2023-05-13 14:01 | disposition home or self-care (01) ==
LOC: EDUNIT# 06:56 → ER 06:57 → 4TH 12:23 → UNDOADMOB 12:23 → 4TH 12:38 → UNDODISOB 05-13 14:01
PROVIDERS: ADMIT Surgery; ATTEND Surgery
DX: K52.9 Noninfective gastroenteritis and colitis, unspecified (principal)
CPT/HCPCS: 74177; 76705; 80053 ×2; 80074; 81000; 83690 ×2; 83735; 85025 ×2; 86141; 96361; 96366 ×2; 96374; 96375 ×2; 96376 ×2; 99284; G0378; 36415

== ENCOUNTER → 2023-07-11 | Outpatient (CLI) | payer BC ==
[~2023-07-11] MED LIST changes: +CIPR500T5 PO; +METR-145 PO
--- NOTE | 2023-07-11 16:50 | Diagnostic Imaging Report ---
PROCEDURE: US Thyroid. TECHNIQUE: Multiple real-time grayscale images were obtained of the thyroid in various projections. INDICATION: Nontoxic single thyroid nodule COMPARISON: 06/16/2022 FINDINGS: Right thyroid lobe: Absent Isthmus: Size (cm): 0.7 Nodules: None Left thyroid lobe: Size (cm): 6.6 x 3.5 x 3.5 Echotexture: Heterogeneous Vascularity: Normal Nodules: There is a large nodule filling the left thyroid which measures 4.9 x 3.6 x 3.7 cm, previously measuring 5.3 x 3.2 x 3 cm. Impression: 1. Dominant left thyroid nodule is stable in size since the prior exam. This was biopsied in September 2022. No new nodules are seen. 2. Absent right thyroid. Dictated by: Dictated on workstation # [id number]
== END ==
LOC: RAD 10:37
PROVIDERS: ATTEND Otolaryngology Otolaryngology/Facial Plastic Surgery
DX: E04.1 Nontoxic single thyroid nodule (principal)
CPT/HCPCS: 76536

== ENCOUNTER → 2023-07-24 | Outpatient (CLI) | payer BC ==
--- NOTE | 2023-07-24 08:57 | Diagnostic Imaging Report ---
INDICATION: Routine screening. COMPARISON: 06/11/2020 and 08/26/2018. TECHNIQUE: 2D and 3D bilateral screening mammography was performed with CAD. FINDINGS: Both breasts are heterogeneously dense, limiting the sensitivity of mammography. The parenchymal pattern is stable. No mass or malignant-appearing microcalcifications are seen. There are benign calcifications on the left. The axillae are unremarkable. IMPRESSION: No mammographic features suspicious for malignancy are identified. ACR BI-RADS Category 2: Benign findings. Result letter will be mailed to the patient. Note: At least 10% of breast cancer is not imaged by mammography. Dictated by: Dictated on workstation # [id number]
== END ==
LOC: RAD 07:45
PROVIDERS: ATTEND Registered Nurse
DX: Z12.31 Encounter for screening mammogram for malignant neoplasm of breast (principal)
CPT/HCPCS: 77063; 77067

== ENCOUNTER → 2023-08-31 | Outpatient (CLI) | payer BC ==
--- NOTE | 2023-08-31 09:20 | Diagnostic Imaging Report ---
PROCEDURE: CT thoracic and lumbar spine without contrast. TECHNIQUE: Multiple contiguous axial images were obtained through the thoracic and lumbar spine without the use of intravenous contrast. Sagittal and coronal reformations were then performed. All CT scans use one or more of the following dose optimizing techniques: automated exposure control, MA and/or KvP adjustment based on a patient size and exam type, or iterative reconstruction. INDICATION: Back injury with back pain in the mid and lower portion. CT thoracic: Curvature and alignment is normal. There is mild superior endplate compression involving approximately T6 vertebral body. Age of this is indeterminate. There is no retropulsion. Remaining thoracic vertebrae show normal stature. The paraspinous tissues are unremarkable. IMPRESSION: Superior endplate depression T6 vertebral body, age indeterminate. MRI would be useful to evaluate acuity. CT lumbar spine: Curvature and alignment is normal. Vertebral body heights and disc spaces are well-maintained. No fractures are identified. Aorta is calcified but nonaneurysmal. IMPRESSION: No acute bony abnormality is detected. Dictated by: Dictated on workstation # [id number]
== END ==
LOC: RAD 07:30
PROVIDERS: ATTEND Registered Nurse
DX: S29.012A Strain of muscle and tendon of back wall of thorax, initial encounter (principal); M54.2 Cervicalgia
CPT/HCPCS: 72128; 72131

== ENCOUNTER 2023-09-05 10:22 | Emergency (ER) | payer BC ==
[~2023-09-05] VITALS: Ht 180 cm; Wt 49.8 kg
--- NOTE | 2023-09-05 11:24 | ED Back Pain ---
General Chief Complaint: Back Problems Stated Complaint: MID BACK PAIN Nursing Triage Note: PT PRESENTS TO ED VIA POV FROM WITH COMPLAINTS OF MID BACK PAIN THIS AM WHEN GETTING OUT OF BED THIS AM. PT REPORTS SHE FIRST INJURED HER BACK A COUPLE WEEKS AGO WHEN REMOVING TOMATO CAGES FROM HER GARDEN. PT HAD A CT SCAN DONE SUNDAY AND WAS TOLD EVERYTHING WAS OK. PT REPORTS SHE HAS BEEN ON AND OFF PREDNISONE SINCE NOVEMBER AND RECENTLY STARTED HAVING NOSE BLEEDS. Source of Information: Patient Exam Limitations: No Limitations (RUTH GARCIA) History of Present Illness Date Seen by Provider: Sep 05, 2023 Time Seen by Provider: 11:21 Initial Comments Patient is a 63-year-old female who presents ED with mid left-sided back pain. She states she woke up this morning felt a pop in her back. She had a sharp pain. Pain radiates to the center part of her chest. Pain is worse with deep inspiration. No shortness of breath or cough. She states she had similar type pain 2 weeks ago while removing tomato cages from her garden. She felt a sharp pain in her back. She states she had CT scan of her thoracic and lumbar spine on 31 August which was grossly unremarkable. She denies of any vomiting, diarrhea, headache, dizziness. She has taken Tylenol. She is chronically on prednisone since November for Crohn's. She does report some burning with urination frequent urination and some blood in her urine recently but none at this time. She did take Monistat with improvement. She is concern for potential UTI. Patient denies of any bowel or urine cons, saddle paresthesia, fever, chills, body aches. (RUTH GARCIA) Allergies and Home Medications Allergies Coded Allergies: clindamycin (Unverified Allergy, Intermediate, 11/30/22) "CHEST PAIN AND PRESSURE" Patient Home Medication List Home Medication List Reviewed: Yes (RUTH GARCIA) Aspirin (Aspirin EC) 81 Mg Tablet., 81 MG PO DAILY, (Reported) Entered as Reported by: GENARO COLEMAN on 05/01/23 1235 Bacillus Coagulans (Probiotic) 10 Billion Cell Capsule., 1 EACH PO DAILY, (Reported) Entered as Reported by: MJ HIRSCH on 02/19/23 1103 Cephalexin (Cephalexin) 500 Mg Tablet, 500 MG PO BID Prescribed by: ADRY GAYLE on 09/05/23 1232 Cetirizine HCl (Zyrtec) 10 Mg Tablet, 10 MG PO DAILY, (Reported) Entered as Reported by: MJ HIRSCH on 02/19/23 1102 Ciprofloxacin HCl (Ciprofloxacin HCl) 500 Mg Tablet, 500 MG PO BID Prescribed by: MICHAEL BAH on 05/13/23 1041 Hydrocodone/Acetaminophen (Hydrocodone-Acetamin 7.5-325) 7.5 Mg-325 Mg Tablet, 1 EACH PO Q4H PRN for PAIN-BREAKTHROUGH Prescribed by: NETTIE KUMAR on 05/02/23 1749 Methylprednisolone (Methylprednisolone Dose Pack) 4 Mg Tab.ds.pk, 4 MG PO UD Prescribed by: NETTIE KUMAR on 05/02/23 174 Metronidazole (Metronidazole) 500 Mg Tablet, 500 MG PO TID Prescribed by: MICHAEL BAH on 05/13/23 1041 Pantoprazole Sodium (Pantoprazole Sodium) 40 Mg Tablet.dr, 40 MG PO DAILY, (Reported) Entered as Reported by: GENARO COLEMAN on 05/01/23 1235 Prednisone (Prednisone) 20 Mg Tab, 20 MG PO DAILY Prescribed by: NICOLAS CUNNINGHAM on 05/13/23 1409 Tramadol HCl (Tramadol HCl) 50 Mg Tablet, 50 MG PO Q6H Prescribed by: ADRY GAYLE on 09/05/23 1233 Review of Systems Constitutional: No chills, No diaphoresis, No fever, No malaise, No weakness EENTM: No hearing loss, No ear pain, No blurred vision Respiratory: No cough, No dyspnea on exertion, No short of breath Cardiovascular: chest pain; No edema Gastrointestinal: No abdominal pain, No constipation, No diarrhea, No nausea, No vomiting Genitourinary: No decreased output, No discharge Musculoskeletal: back pain; No joint pain; muscle pain, muscle stiffness Skin: No change in color, No change in hair/nails (RUTH GARCIA) All Other Systems Reviewed Negative Unless Noted: Yes (RUTH GARCIA) Past Fondpdz-Iwrsjm-Nlowiy Hx Patient Social History Tobacco Use?: No Substance use?: No Alcohol Use?: No Pt feels they are or have been: No (RUTH GARCIA) Seasonal Allergies Seasonal Allergies: Yes (RUTH GARCIA) Past Medical History Surgery/Hospitalization HX: February 2023 - peri, fx pelvis in february, acute chrons Surgeries: Yes (Colonoscopy) Gallbladder, Thyroidectomy Respiratory: No Cardiac: No Neurological: No [employer] History: Menopausal Genitourinary: No Gastrointestinal: Yes (Possible inflammatory bowel disease) Gastroesophageal Reflux Musculoskeletal: Yes Scoliosis Endocrine: Yes (GOITER) Cancer: No Psychosocial: No Integumentary: No Blood Disorders: No (RUTH GARCIA) Family Medical History No Pertinent Family Hx (RUTH GARCIA) Physical Exam Vital Signs Vital Signs - First Documented 09/05/23 10:46 Temp 37.3 Pulse 89 Resp 16 B/P (MAP) 119/89 (99) Pulse Ox 99 (MIGUEL JONES MD) Vital Signs Capillary Refill : Less Than 3 Seconds (RUTH GARCIA) Height, Weight, BMI Height: 5'11.00" Weight: 135lbs. oz. 61.752792mh; 15.00 BMI Method:Stated General Appearance: No Apparent Distress, WD/WN HEENT: PERRL/EOMI, TMs Normal, Normal ENT Inspection, Pharynx Normal Neck: Full Range of Motion, Normal Inspection, Non Tender, Supple Cardiovascular: Regular Rate, Rhythm, No Edema, No Gallop, No JVD Respiratory: Chest Non Tender, Lungs Clear, Normal Breath Sounds, No Accessory Muscle Use, No Respiratory Distress Gastrointestinal: Normal Bowel Sounds, No Organomegaly, No Pulsatile Mass, Non Tender Back: Vertebral Tenderness (Thoracic midline tenderness, left thoracic paraspinal muscle tenderness. Normal breath sounds throughout.) Extremity: Normal Capillary Refill, Normal Inspection, Normal Range of Motion, Non Tender Neurologic/Psychiatric: Alert, Oriented x3, No Motor/Sensory Deficits, Normal Mood/Affect Skin: Normal Color, Warm/Dry (RUTH GARCIA) Progress/Results/Core Measures Results/Orders Lab Results Laboratory Tests Test 09/05/23 11:25 09/05/23 11:58 Range/Units White Blood Count 13.1 H 4.3-11.0 10^3/uL Red Blood Count 4.50 3.80-5.11 10^6/uL Hemoglobin 13.5 11.5-16.0 g/dL Hematocrit 42 35-52 % Mean Corpuscular Volume 93 80-99 fL Mean Corpuscular Hemoglobin 30 25-34 pg Mean Corpuscular Hemoglobin Concent 32 32-36 g/dL Red Cell Distribution Width 13.6 10.0-14.5 % Platelet Count 307 130-400 10^3/uL Mean Platelet Volume 8.3 L 9.0-12.2 fL Immature Granulocyte % (Auto) 1 % Neutrophils (%) (Auto) 87 H 42-75 % Lymphocytes (%) (Auto) 8 L 12-44 % Monocytes (%) (Auto) 3 0-12 % Eosinophils (%) (Auto) 0 0-10 % Basophils (%) (Auto) 1 0-10 % Neutrophils # (Auto) 11.4 H 1.8-7.8 10^3/uL Lymphocytes # (Auto) 1.1 1.0-4.0 10^3/uL Monocytes # (Auto) 0.5 0.0-1.0 10^3/uL Eosinophils # (Auto) 0.0 0.0-0.3 10^3/uL Basophils # (Auto) 0.1 0.0-0.1 10^3/uL Immature Granulocyte # (Auto) 0.1 0.0-0.1 10^3/uL Neutrophils % (Manual) 89 % Lymphocytes % (Manual) 11 % Monocytes % (Manual) 0 % Eosinophils % (Manual) 0 % Basophils % (Manual) 0 % Band Neutrophils 0 % Blood Morphology Comment NORMAL Sodium Level 139 135-145 MMOL/L Potassium Level 4.1 3.6-5.0 MMOL/L Chloride Level 103 98-107 MMOL/L Carbon Dioxide Level 26 21-32 MMOL/L Anion Gap 10 5-14 MMOL/L Blood Urea Nitrogen 13 7-18 MG/DL Creatinine 0.97 0.60-1.30 MG/DL Estimat Glomerular Filtration Rate 66 BUN/Creatinine Ratio 13 Glucose Level 189 H 70-105 MG/DL Calcium Level 8.7 8.5-10.1 MG/DL Corrected Calcium 9.1 8.5-10.1 MG/DL Total Bilirubin 1.0 0.1-1.0 MG/DL Aspartate Amino Transf (AST/SGOT) 14 5-34 U/L Alanine Aminotransferase (ALT/SGPT) 14 0-55 U/L Alkaline Phosphatase 89 40-136 U/L Troponin I < 0.028 <0.028 NG/ML Total Protein 6.4 6.4-8.2 GM/DL Albumin 3.5 3.2-4.5 GM/DL Lipase 29 8-78 U/L Urine Color ORANGE Urine Clarity CLEAR Urine pH 5.0 5-9 Urine Specific [place] >=1.030 1.016-1.022 Urine Protein 1+ H NEGATIVE Urine Glucose (UA) TRACE H NEGATIVE Urine Ketones NEGATIVE NEGATIVE Urine Nitrite NEGATIVE NEGATIVE Urine Bilirubin 2+ H NEGATIVE Urine Urobilinogen 0.2 < = 1.0 MG/DL Urine Leukocyte Esterase NEGATIVE NEGATIVE Urine RBC (Auto) TRACE H NEGATIVE Urine RBC 2-5 H /HPF Urine WBC 5-10 H /HPF Urine Squamous Epithelial Cells 2-5 /HPF Urine Crystals NONE /LPF Urine Bacteria NEGATIVE /HPF Urine Casts PRESENT /LPF Urine Hyaline Casts 2-5 H /LPF Urine Mucus SMALL H /LPF Urine Culture Indicated YES (MIGUEL JONES MD) Medications Given in ED Current Medications Medications Dose Ordered Sig/Андрей Route Start Time Stop Time Status Last Admin Dose Admin Tramadol HCl 50 mg ONCE ONCE PO 09/05/23 11:30 09/05/23 11:31 DC 09/05/23 11:31 50 MG (MIGUEL JONES MD) Vital Signs/I&O 09/05/23 09/05/23 10:46 12:38 Temp 37.3 Pulse 89 89 Resp 16 16 B/P (MAP) 119/89 (99) 119/89 Pulse Ox 99 99 (MIGUEL JONES MD) Blood Pressure Mean: 99 Comment Sinus rhythm, 80 bpm, QRS duration 76 MS, QTc 387 MS. (RUTH GARCIA) Departure Communication (PCP) Differential diagnosis muscle strain, thoracic fracture, ACS, pneumonia, pneumothorax. Currently on prednisone daily for history of Crohn's. Has been on prednisone since November. No recent falls. Injured her upper back 2 weeks ago while picking something up in the garden. Similar type pain. Pain is located to the left sided thoracic spine and thoracic midline. Pain with deep inspiration or movement. Denies of any bowel or urine incontinence or saddle paresthesia. Pain radiates to the anterior part of the chest. I feel like this is more secondary coming from her spine. She did have a CT scan of her thoracic and lumbar spine on the which shows concern for age-indeterminate compression fracture of the superior endplate of T6. Chest x-ray, thoracic spine x-ray, CBC, CMP and troponin. EKG was obtained which showed normal sinus rhythm without evidence of ST elevation or depression.. Troponin negative. CBC showed white blood count of 13 with a chemistry that was grossly unremarkable. Blood sugar 189. Did eat right before arrival. Chest x-ray showed chronic findings nothing acute. No pneumothorax, mediastinal widening, pneumonia. Thoracic spine xray concern for potential compression fracture of the superior endplate of T6 age-indeterminate. I believe this is the source of the patient's pain. She would likely benefit with an MRI for further evaluation. Limitations here in the ER. She did receive tramadol with improvement of pain. She has taken tramadol in the past. My concern due to the daily prednisone this may lead into complications such as spontaneous fractures in the future. She is scheduled to follow-up with GI at in October for her Crohn's disease. She is currently being managed by Dr. Kumar for her Crohn's. She does report some urinary symptoms. Her urinalysis concerning for UTI. Will discharge with Keflex. She states she feels much better at this time. Will discharge with strict return precautions. Follow-up your PCP within 5 days for reevaluation of today symptoms and urinalysis. Need further evaluation with MRI. If any worsening symptoms return back to ED. (RUTH GARCIA) Impression Primary Impression: Thoracic back pain Additional Impression: UTI (urinary tract infection) Disposition: 01 HOME, SELF-CARE Condition: Stable Departure-Patient Inst. Decision time for Depature: 12:32 (RUTH GARCIA) Referrals: ZAC SUTHERLAND (PCP/Family) Primary Care Physician Patient Instructions: Urinary Tract Infection, Adult (DC) Add. Discharge Instructions: Need to follow-up with your primary care physician within the next week for recheck of urinalysis. I do recommend getting a MRI of your thoracic spine. May need further evaluation by neuro spine. Tramadol as needed. Keflex for UTI. If any worsening symptoms return back to ED. All discharge instructions reviewed with patient and/or family. Voiced understanding. Scripts Tramadol HCl (Tramadol HCl) 50 Mg Tablet 50 MG PO Q6H, #12 TAB Prov: RUTH GARCIA 09/05/23 Cephalexin (Cephalexin) 500 Mg Tablet 500 MG PO BID for 7 Days, #14 TAB Prov: RUTH GARCIA 09/05/23 ATTENDING PHYSICIAN NOTE: I was physically present as attending physician in the emergency department during the care of this patient, but I was not directly involved in the decision making or delivery of care for this patient. (MIGUEL JONES MD) RUTH GARCIA Sep 05, 2023 11:24 MIGUEL JONES MD Sep 05, 2023 19:04
[2023-09-05 11:35] LABS: BASOPHILS # (AUTO) 0.1 10^3/uL (0.0-0.1); BASOPHILS % (AUTO) 1 % (0-10); EOSINOPHILS % (AUTO) 0 % (0-10); HEMATOCRIT 42 % (35-52); HEMOGLOBIN 13.5 g/dL (11.5-16.0); LYMPHOCYTES # (AUTO) 1.1 10^3/uL (1.0-4.0); LYMPHOCYTES % (AUTO) 8 % (12-44); MEAN CORPUSCULAR HEMOGLOBIN 30 pg (25-34); MEAN CORPUSCULAR HGB CONC 32 g/dL (32-36); MEAN CORPUSCULAR VOLUME 93 fL (80-99); MEAN PLATELET VOLUME 8.3 fL (9.0-12.2); MONOCYTES # (AUTO) 0.5 10^3/uL (0.0-1.0); MONOCYTES % (AUTO) 3 % (0-12); NEUTROPHILS # (AUTO) 11.4 10^3/uL (1.8-7.8); NEUTROPHILS % (AUTO) 87 % (42-75); PLATELET COUNT 307 10^3/uL (130-400); WHITE BLOOD COUNT 13.1 10^3/uL (4.3-11.0)
[2023-09-05 11:47] LABS: ALBUMIN 3.5 GM/DL (3.2-4.5); CHLORIDE 103 MMOL/L (98-107); POTASSIUM 4.1 MMOL/L (3.6-5.0); SODIUM 139 MMOL/L (135-145)
[2023-09-05 11:48] LABS: CALCIUM 8.7 MG/DL (8.5-10.1)
[2023-09-05 11:49] LABS: GLUCOSE 189 MG/DL (70-105)
[2023-09-05 11:50] LABS: TOTAL PROTEIN 6.4 GM/DL (6.4-8.2)
--- NOTE | 2023-09-05 11:50 | Diagnostic Imaging Report ---
CLINICAL INDICATION: Patient with mid back pain this morning when getting out of bed. Patient injured back a couple of weeks ago moving tomato cages from her garden. EXAM: X-ray of the thoracic spine, two views. COMPARISON: CT scan of the thoracic and lumbar spine without contrast dated 08/31/2023. FINDINGS: Of note, the upper thoracic spine is obscured by overlapping anatomical structures on lateral view. Stable compression deformity involving the upper endplate of the T6 vertebra with some sclerosis. This is age indeterminate. There is no other thoracic spine fracture seen. There are small degenerative spurs involving the thoracic spine. There are surgical clips overlying the lower neck region. IMPRESSION: 1: There is a stable mild compression deformity involving the upper endplate of the T6 vertebra of unknown age. MRI of the thoracic spine would better evaluate for chronicity. 2: There is no other fracture seen. Dictated by: Dictated on workstation # [id number]
[2023-09-05 11:51] LABS: CARBON DIOXIDE 26 MMOL/L (21-32)
[2023-09-05 11:53] LABS: ALKALINE PHOSPHATASE 89 U/L (40-136); CREATININE SERUM 0.97 MG/DL (0.60-1.30); GFR ESTIMATED 66
[2023-09-05 11:54] LABS: BUN/CREATININE RATIO 13
[2023-09-05 11:56] LABS: ALANINE AMINOTRANSFERASE 14 U/L (0-55); LIPASE 29 U/L (8-78)
[2023-09-05 12:17] LABS: BAND NEUTROPHILS 0 %; BASOPHILS % (MANUAL) 0 %; EOSINOPHILS % (MANUAL) 0 %; LYMPHOCYTES % (MANUAL) 11 %; MONOCYTES % (MANUAL) 0 %; NEUTROPHILS % (MANUAL) 89 %; RBC MORPH NORMAL
[2023-09-05 12:21] LABS: CLARITY,URINE CLEAR; COLOR,URINE ORANGE; GLUCOSE, URINE (UA) TRACE (NEGATIVE); KETONES,URINE NEGATIVE (NEGATIVE); PROTEIN,URINE 1+ (NEGATIVE)
[2023-09-05 12:22] LABS: BACTERIA,URINE NEGATIVE /HPF; BILIRUBIN,URINE 2+ (NEGATIVE); LEUKOCYTE ESTERASE ,URINE NEGATIVE (NEGATIVE); NITRITE,URINE NEGATIVE (NEGATIVE)
--- NOTE | 2023-09-05 12:26 | Diagnostic Imaging Report ---
INDICATION: Chest pain PA and lateral views of the chest are obtained with comparison made to study of 08/23/2015. FINDINGS: Heart size and pulmonary vascularity are within normal limits, and the lungs are clear, bilaterally. There is now mild rightward deviation of the trachea with surgical clips in the lower neck. IMPRESSION: No acute abnormality identified. There is mild rightward mass effect on the trachea which could be due to prominent vascularity or thyroid gland. enlargement. Dictated by: Dictated on workstation # [id number]
[2023-09-05] MEDS ORDERED: CEPH500T PO (12:32)
[2023-09-05] MEDS ORDERED: TRAM50TA3 PO (12:32)
[2023-09-05 12:38] VITALS: BP 119/89
== END 2023-09-05 12:38 | disposition home or self-care (01) ==
LOC: EDUNIT# 10:22 → ER 10:24
DX: M54.6 Pain in thoracic spine (principal); N39.0 Urinary tract infection, site not specified; Z88.1 Allergy status to other antibiotic agents
CPT/HCPCS: 36415; 71046; 72070; 80053; 81000; 83690; 84484; 85007; 85027; 87088; 93005